=== PATIENT | male | born 1960 | race Caucasian/White ===

== ENCOUNTER → 2018-03-02 | Outpatient (CLI) | payer OTHER ==
--- NOTE | 2018-03-03 15:03 | CT ---
EXAMINATION TYPE: CT angio abd aorta w/Runoff DATE OF EXAM: 03/02/2018 5:18 PM COMPARISON: HISTORY: Embolism & thrombosis of arteries. Hx stent RT [facility] CT DLP: 1380.4 mGycm Automated exposure control for dose reduction was used. TECHNIQUE: Performed with IV Contrast, patient injected with 125 mL of Isovue 370. . FINDINGS: Limited CT sections are obtained the lung bases. Some lingular atelectasis is likely present. Lung ba ses are otherwise clear CT ABDOMEN: In this arterial phase of contrast CT abdomen is essentially unremarkable. Liver spleen p ancreas adrenal glands and gallbladder appear normal. Kidneys cortical phase appear normal. Loops of bowel without contrast are unremarkable CT PELVIS: The appendix is normal. Loops of bowel without contrast pelvis are normal. Urinary bladder prostate is unremarkable. CTA: Dedicated imaging is performed with contrast for the aorta and lower extremity runoff. Three-D r econstructed images performed separately on the ventricular computer by the technologist are presente d. Gastric calcifications within the aorta. The renal arteries appear normal. Celiac axis and superior m esenteric artery takeoffs appear normal. Inferior mesenteric artery appears normal. Vascular calcific ations at the aortic bifurcation. There appears to be a severe stenosis in the proximal right external iliac artery. Internal iliac art amari on the right may be occluded. There is some narrowing of the proximal external iliac artery on th e left. The internal iliac artery on the left appears patent. Vascular calcification is within the st omach. Common femoral arteries are patent. Profunda femoris vessels are patent. Superficial femoral arteries are patent. Some narrowing of the distal superficial femoral arteries at the operative canals may be present. Popliteal arteries appear patent. Trifurcation vessels are patent bilaterally. Trifurcation vessels appear patent to the level of the ankles. IMPRESSION: SEVERE STENOSIS THROUGH THE RIGHT PROXIMAL EXTERNAL ILIAC ARTERY. MILD DEGREE OF STENOSIS WITHIN THE PROXIMAL LEFT EXTERNAL ILIAC ARTERY. LOWER EXTREMITY ARTERIAL SYSTEM OTHERWISE APPEARS PATENT TO THE LEVEL OF THE ANKLES.
== END ==
LOC: RADCTMAIN 16:13
PROVIDERS: ATTEND Surgery
DX: I74.3 Embolism and thrombosis of arteries of the lower extremities (principal)
CPT/HCPCS: 75635; Q9967

== ENCOUNTER → 2018-04-08 | Outpatient (CLI) | payer OTHER ==
[2018-04-08 11:41] LABS: Basophils # (A) 0.1 k/uL (0-0.2); Basophils % (A) 1 %; Eosinophils # (A) 0.1 k/uL (0-0.7); Eosinophils % (A) 2 %; HCT 47.8 % (39.0-53.0); HGB 16.1 gm/dL (13.0-17.5); Lymphocytes # (A) 2.8 k/uL (1.0-4.8); Lymphocytes % (A) 37 %; MCH 31.8 pg (25.0-35.0); MCHC 33.6 g/dL (31.0-37.0); MCV 94.8 fL (80.0-100.0); Mean Platelet Volume 6.6; Monocytes # (A) 0.5 k/uL (0-1.0); Monocytes % (A) 6 %; Neutrophils % (A) 51 %; Platelet Count 189 k/uL (150-450); RBC 5.04 m/uL (4.30-5.90); RDW 12.6 % (11.5-15.5); WBC 7.8 k/uL (3.8-10.6)
[2018-04-08 11:45] LABS: Anion Gap 9 mmol/L; Blood Urea Nitrogen 20 mg/dL (9-20); Carbon Dioxide 27 mmol/L (22-30); Chloride 107 mmol/L (98-107); Potassium 4.3 mmol/L (3.5-5.1); Sodium 143 mmol/L (137-145)
== END | disposition home or self-care (01) ==
LOC: LABPAT 11:11
PROVIDERS: ATTEND Surgery
DX: Z01.812 Encounter for preprocedural laboratory examination (principal); I70.211 Atherosclerosis of native arteries of extremities with intermittent claudication, right leg
CPT/HCPCS: 36415; 80051; 82565; 84520; 85025

== ENCOUNTER 2018-04-11 06:36 | Day surgery (SDC) | payer OTHER ==
[2018-04-07 11:58] VITALS: BMI 31.8
[2018-04-11 07:05] VITALS: TEMP 97.9
[2018-04-11] MEDS ORDERED: ASPIRIN 325 MG TAB PO STA (07:07)
[2018-04-11] MEDS ORDERED: SODIUM CHLORIDE 0.9% 1,000 ML IV ONE (07:30)
--- NOTE | 2018-04-11 07:33 | P.GSHP ---
History of Present Illness H&P Date: 04/11/18 Chief Complaint: right lower extremity pain with walking 57-year-old gentleman with history of right common iliac artery stenting multiple years prior presented to the office secondary to right lower extremity buttock and hip pain with ambulation. Patient stated it was the same pain he felt prior to his previous stent and would like it worked up. Upon workup it was noted that he had diminished ABIs in the right lower extremity as well as a CT angiogram that demonstrated severe external iliac artery stenosis of approximately 90% just distal to the previous stent. He presents today for right lower extremity angiogram and iliac artery stenting. - Review of Systems All systems: negative Past Medical History Past Medical History: Vascular Disorder History of Any Multi-Drug Resistant Organisms: None Reported Additional Past Surgical History / Comment(s): Right common iliac artery stenting Past Anesthesia/Blood Transfusion Reactions: No Reported Reaction Smoking Status: Current some day smoker - Past Family History Mother Family Medical History: No Reported History Medications and Allergies Home Medications Medication Instructions Recorded Confirmed Type Sertraline [Zoloft] 200 mg PO DAILY 04/07/18 04/07/18 History lamoTRIgine [LaMICtal] 200 mg PO DAILY 04/07/18 04/07/18 History Allergies Allergy/AdvReac Type Severity Reaction Status Date / Time No Known Allergies Allergy Verified 04/07/18 11:52 Surgical - Exam Vital Signs Temp Pulse Resp BP Pulse Ox 97.9 F 75 20 128/83 96 04/11/18 07:01 04/11/18 07:01 04/11/18 07:01 04/11/18 07:01 04/11/18 07:01 Results - Imaging CT scan - abdomen: image reviewed (Right common iliac artery stent present with the distal stent stenosis and proximal external iliac artery severe stenosis) Assessment and Plan (1) Claudication in peripheral vascular disease Current Visit: Yes Status: Acute Priority: High Code(s): I73.9 - PERIPHERAL VASCULAR DISEASE, UNSPECIFIED SNOMED Code(s): 65401240 (2) Claudication of right lower extremity Current Visit: Yes Status: Acute Priority: High Code(s): I73.9 - PERIPHERAL VASCULAR DISEASE, UNSPECIFIED SNOMED Code(s): 87011853 (3) Right iliac artery stenosis Current Visit: Yes Status: Acute Code(s): I77.1 - STRICTURE OF ARTERY SNOMED Code(s): 863484413 Plan: Right lower extremity angiogram with external iliac artery stenting.
[2018-04-11] MEDS ORDERED: MIDAZOLAM 2 MG/2 ML VIAL IV ONE (07:45)
[2018-04-11] MEDS ORDERED: LIDOCAINE 1% INJ 10MG/ML (20 ML MDV) SQ ONE (07:47)
[2018-04-11] MEDS ORDERED: HEPARIN SODIUM 1,000 UN/ML (10ML VL) IV ONE (07:55)
[2018-04-11] MEDS ORDERED: PROTAMINE SULFATE 10 MG/ML 5 ML VIAL IV ONE (08:32)
[2018-04-11] MEDS ORDERED: IOPAMIDOL-250 100ML BTL INTRAARTER ONE (08:36)
[2018-04-11] MEDS ORDERED: CLOPIDOGREL 75 MG TAB PO ONE (08:38)
[2018-04-11] MEDS ORDERED: SODIUM CHLORIDE 0.9% 1,000 ML IV SCH (08:45)
[2018-04-11] MEDS ORDERED: CLOPIDOGREL 75 MG TAB PO SCH (09:00)
[2018-04-11] MEDS ORDERED: SERTRALINE 100 MG TAB PO SCH (09:00)
[2018-04-11] MEDS ORDERED: lamoTRIgine 100 MG TAB PO SCH (09:00)
--- NOTE | 2018-04-11 09:02 | P.OP ---
Date of Procedure: 04/11/18 Preoperative Diagnosis: right common iliac artery in stent stenosis- 90% Postoperative Diagnosis: Same Procedure(s) Performed: Right common femoral artery access under ultrasound guidance Aortogram and right lower extremity selective angiogram PTBA of right common iliac artery instent stenosis with Malakoff 8x40 and Inpact 7x60 balloons Anesthesia: local, other (with moderate sedation x45 mins) Surgeon: Sav Humphrey Estimated Blood Loss (ml): 5 Pathology: none sent Condition: stable Disposition: same day Indications for Procedure: 57 year old male with right lower extremity disabiling claudication [place] III found to have 90% instent stenosis of previous right distal common iliac artery stent. Presents for angiogram with possible stenting. Description of Procedure: After written informed consent was obtained the patient all risks benefits and competitions were described the patient is brought to the [facility] and laid in a supine position. The area of the groins were prepped and draped in usual sterile fashion. Timeout was performed in normal fashion. Utilizing local anesthetic the area over the right common femoral artery was infused. Under ultrasound guidance the right common femoral artery was accessed with a multipurpose needle and utilizing Seldinger technique a 6-Chinese sheath was placed. Angiogram of the right lower extremity was obtained demonstrating significant stenosis at the distal aspect of the common iliac artery stent on the right. There was significant candy wrapping appearance noted. 035 Glidewire was then placed across the lesion into the distal aorta. A glide catheter was also placed over the wire and angiograms were obtained in the aorta as well as through the stent. Upon angiogram was noted that the in-stent stenosis was approximately 90% at the distal aspect of the stent as well as in the mid aspect of the stent there was a what appeared to be a shelf. Patient was administered 2000 units of heparin at that time and balloon angioplasty was performed with a 8 x 40 mm Malakoff balloon at nominal. Once completed and grams were again obtained demonstrating improvement of the in-stent stenosis as well as the distal aspect of the stent stenosis. A 7 x 60 mm impact balloon drug- eluting was then chosen and placed at the iliac stent. Once completed there was minimal residual stenosis less than 10%. At that time we obtained intraluminal pressures across the lesion which were equal above and below. Final angiogram with runoff was then performed to the right lower extremity demonstrating good brisk flow through the iliac stents with three-vessel runoff to the ankle. Patient tolerated procedure well all sheaths and wires were removed and pressure was placed for hemostasis. 10 mg of protamine was also given to help with hemostasis. Patient had palpable PT and DP pulses at the conclusion of the procedure and was sent to extended stay unit for recovery. Plan - Discharge Summary Discharge Rx Participant: Yes New Discharge Prescriptions: No Action lamoTRIgine [LaMICtal] 200 mg PO DAILY Sertraline [Zoloft] 200 mg PO DAILY Discharge Medication List Sertraline [Zoloft] 200 mg PO DAILY 04/07/18 [History] lamoTRIgine [LaMICtal] 200 mg PO DAILY 04/07/18 [History] Atorvastatin [Lipitor] 1 tab PO DAILY 04/11/18 [History] Clopidogrel [Plavix] 1 tab PO DAILY 04/11/18 [History] Follow up Appointment(s)/Referral(s): Sav Humphrey DO [STAFF PHYSICIAN] - 2 Weeks Discharge Disposition: HOME SELF-CARE
[2018-04-11 12:23] VITALS: RESP 16
[2018-04-11] MEDS ORDERED: ACETAMINOPHEN TAB 325 MG TAB PO STA (13:27)
[2018-04-11 15:47] VITALS: BP 125/79; PULSE 69
--- NOTE | 2018-04-12 09:37 | IR ---
EXAMINATION TYPE: IR fluoroscopy <1hr DATE OF EXAM: 04/11/2018 COMPARISON: NONE HISTORY: Right hip and leg pain Fluoroscopy support supplied to the referring clinician. See dictated report from vasculature surger y, 7.3 minutes fluoroscopy time, 786 intraoperative C-arm images
== END 2018-04-11 16:07 | disposition home or self-care (01) ==
LOC: CATHCVL 06:36
PROVIDERS: ATTEND Surgery
DX: T82.856A Stenosis of peripheral vascular stent, initial encounter (principal); F17.200 Nicotine dependence, unspecified, uncomplicated; Z79.899 Other long term (current) drug therapy
CPT/HCPCS: 37220; C1769 ×3; C1894; C1725; C2623; J2250; J2720; J2001; J1644; Q9966

== ENCOUNTER 2018-04-12 10:38 | Emergency (ER) | payer OTHER ==
[2018-04-12 10:51] VITALS: BP 150/83; PULSE 80; RESP 18; TEMP 98.6
--- NOTE | 2018-04-12 12:52 | ED ---
General Adult HPI - General Chief complaint: Recheck/Abnormal Lab/Rx Stated complaint: post Angioplasty/bruising & swelling Time Seen by Provider: 04/12/18 10:50 Source: patient, RN notes reviewed Mode of arrival: ambulatory Limitations: no limitations - History of Present Illness Initial comments: Is a 57-year-old male who presents emergency Department complaining of right groin swelling or ecchymosis. Patient states she had a catheterization done yesterday for a repair of a iliac stent. Patient states there is no real pain there but the area looks different than it has in the past and he was concerned so he came in. Patient denies any distal leg pain or tenderness. Patient denies any numbness or weakness. Patient was just concerned about the increased swelling and ecchymosis. - Related Data Home Medications Medication Instructions Recorded Confirmed Sertraline [Zoloft] 200 mg PO DAILY 04/07/18 04/12/18 lamoTRIgine [LaMICtal] 200 mg PO DAILY 04/07/18 04/12/18 Atorvastatin [Lipitor] 40 mg PO DAILY 04/11/18 04/12/18 Clopidogrel [Plavix] 75 mg PO DAILY 04/11/18 04/12/18 Allergies Allergy/AdvReac Type Severity Reaction Status Date / Time No Known Allergies Allergy Verified 04/12/18 11:24 Review of Systems ROS Statement: Those systems with pertinent positive or pertinent negative responses have been documented in the HPI. ROS Other: All systems not noted in ROS Statement are negative. Past Medical History Past Medical History: Vascular Disorder History of Any Multi-Drug Resistant Organisms: None Reported Past Surgical History: Heart Catheterization Additional Past Surgical History / Comment(s): Right common iliac artery stenting Past Anesthesia/Blood Transfusion Reactions: No Reported Reaction Past Psychological History: No Psychological Hx Reported Smoking Status: Current every day smoker Past Alcohol Use History: None Reported Past Drug Use History: None Reported - Past Family History Mother Family Medical History: No Reported History General Exam - General Exam Comments Initial Comments: GENERAL Patient is well-developed and well-nourished. Patient is in no acute distress. EYES Patient's pupils are equal and round. Extraocular motion is intact SKIN Unremarkable NEURO The patient is alert and oriented 3 PYSCH Patient has normal interpersonal interactions. MUSCULOSKELETAL Patient's groin is swollen and there is some ecchymosis in the area however the patient has good femoral pulses and good DP pulses. Limitations: no limitations Course Vital Signs 04/12/18 10:48 Temperature 98.6 F Pulse Rate 80 Respiratory 18 Rate Blood Pressure 150/83 O2 Sat by Pulse 100 Oximetry Medical Decision Making - Medical Decision Making Patient's ultrasound showed no pseudoaneurysm. Disposition Clinical Impression: Postoperative hematoma involving circulatory system following cardiac catheterization Disposition: HOME SELF-CARE Condition: Good Instructions: Hematoma (ED) Is patient prescribed a controlled substance at d/c from ED?: No Referrals: Osman Pulido MD [Primary Care Provider] - 1-2 days Time of Disposition: 14:36
--- NOTE | 2018-04-12 14:30 | US ---
EXAMINATION TYPE: US lower ext pseudo artery RT DATE OF EXAM: 04/12/2018 COMPARISON: NONE CLINICAL HISTORY: Pain. Pt states pain and bruising right groin s/p angioplasty yesterday EXAM PERFORMED: Grayscale and color Doppler duplex imaging performed of the groin, post cardiac ping ter to assess for pseudoaneurysm. SIDE PERFORMED: Right Color and Waveform Doppler performed to assess for the presence of pseudoaneurysm; Is there ultrasound evidence of a pseudoaneurysm: No Is there evidence of AV shunting: No Is there a fluid collection present: No Abnormal flow seen saved on images 6 and 7 of uncertain etiology, technologist said during real-time scanning no suspicious swirling of blood flow identified in abnormal outpouching to suggest pseudoane urysm and the access point in femoral artery was more cranial or proximal in position. IMPRESSION: During real-time scanning no convincing ultrasound evidence for pseudoaneurysm
== END 2018-04-12 14:40 | disposition home or self-care (01) ==
LOC: EC 10:38
DX: I97.630 Postprocedural hematoma of a circulatory system organ or structure following a cardiac catheterization (principal); I99.9 Unspecified disorder of circulatory system; F17.200 Nicotine dependence, unspecified, uncomplicated; Z95.818 Presence of other cardiac implants and grafts; Z95.820 Peripheral vascular angioplasty status with implants and grafts; Z79.02 Long term (current) use of antithrombotics/antiplatelets; Z79.899 Other long term (current) drug therapy
CPT/HCPCS: 93975; 99283

== ENCOUNTER 2022-06-06 18:54 | Inpatient (IN) | payer OTHER ==
[2022-06-06 20:22] LABS: Basophils # (A) 0.1 k/uL (0-0.2); Basophils % (A) 2 %; Eosinophils # (A) 0.1 k/uL (0-0.7); Eosinophils % (A) 1 %; HCT 43.7 % (39.0-53.0); HGB 14.4 gm/dL (13.0-17.5); Lymphocytes # (A) 1.2 k/uL (1.0-4.8); Lymphocytes % (A) 15 %; MCH 32.4 pg (25.0-35.0); MCHC 33.1 g/dL (31.0-37.0); MCV 98.1 fL (80.0-100.0); Mean Platelet Volume 7.7; Monocytes # (A) 0.4 k/uL (0-1.0); Monocytes % (A) 6 %; Neutrophils # (A) 5.6 k/uL (1.3-7.7); Neutrophils % (A) 75 %; RBC 4.45 m/uL (4.30-5.90); RDW 13.8 % (11.5-15.5); WBC 7.6 k/uL (3.8-10.6)
[2022-06-06 20:32] LABS: Partial Thromboplastin Time 23.2 sec (22.0-30.0); Prothrombin Time 10.4 sec (9.0-12.0)
[2022-06-06 20:36] LABS: Potassium 3.7 mmol/L (3.5-5.1)
[2022-06-06 20:37] LABS: ALT 24 U/L (4-49); AST 57 U/L (17-59); African American GFR (CKD) >90 (>60 ml/min/1.73 sqM); Albumin 3.6 g/dL (3.5-5.0); Alkaline Phosphatase 120 U/L (38-126); Anion Gap 9 mmol/L; Blood Urea Nitrogen 6 mg/dL (9-20); Calcium 8.4 mg/dL (8.4-10.2); Carbon Dioxide 26 mmol/L (22-30); Chloride 106 mmol/L (98-107); Glucose 101 mg/dL (74-99); Non-African American GFR(CKD) >90 (>60 ml/min/1.73 sqM); Sodium 141 mmol/L (137-145); Total Bilirubin 0.9 mg/dL (0.2-1.3); Total Protein 6.2 g/dL (6.3-8.2)
[2022-06-06 20:53] LABS: Platelet Count 99 k/uL (150-450)
--- NOTE | 2022-06-06 21:06 | ED ---
Fall HPI - General Chief Complaint: Fall Stated Complaint: Fall,R. Side Pain Time Seen by Provider: 06/06/22 19:46 Source: patient Mode of arrival: wheelchair - History of Present Illness Initial Comments: Patient is a 61-year-old male presenting for evaluation post fall. Patient states that 6 days ago he tripped on his slippers and fell down 6 stairs. He denies any head injury, loss of consciousness, use of blood thinners. Patient reports right-sided rib pain which is worse with deep inspiration and coughing. There is some bruising noted over the right side. No chest pain, nausea, vomiting, palpitations, weakness, headache, vision or hearing changes. - Related Data Home Medications Medication Instructions Recorded Confirmed Sertraline [Zoloft] 200 mg PO DAILY 04/07/18 04/12/18 lamoTRIgine [LaMICtal] 200 mg PO DAILY 04/07/18 04/12/18 Atorvastatin [Lipitor] 40 mg PO DAILY 04/11/18 04/12/18 Clopidogrel [Plavix] 75 mg PO DAILY 04/11/18 04/12/18 Allergies Allergy/AdvReac Type Severity Reaction Status Date / Time No Known Allergies Allergy Verified 06/06/22 19:41 Review of Systems ROS Statement: Those systems with pertinent positive or pertinent negative responses have been documented in the HPI. ROS Other: All systems not noted in ROS Statement are negative. Past Medical History Past Medical History: Vascular Disorder History of Any Multi-Drug Resistant Organisms: None Reported Past Surgical History: Heart Catheterization Additional Past Surgical History / Comment(s): Right common iliac artery stenting Past Anesthesia/Blood Transfusion Reactions: No Reported Reaction Past Psychological History: No Psychological Hx Reported Smoking Status: Current every day smoker Past Alcohol Use History: Occasional Past Drug Use History: None Reported - Past Family History Mother Family Medical History: No Reported History General Exam Limitations: no limitations General appearance: alert, in no apparent distress Head exam: Present: atraumatic, normocephalic, normal inspection Eye exam: Present: normal appearance, PERRL, EOMI Neck exam: Present: normal inspection, full ROM Respiratory exam: Present: wheezes. Absent: respiratory distress, rales, rhonchi, stridor Cardiovascular Exam: Present: regular rate, normal rhythm, normal heart sounds. Absent: systolic murmur, diastolic murmur, rubs, gallop, clicks Right Hip exam: Present: ecchymosis Neurological exam: Present: alert, oriented X3, CN II-XII intact Psychiatric exam: Present: normal affect, normal mood Course Vital Signs 06/06/22 06/06/22 06/06/22 19:37 21:28 21:35 Temperature 98.3 F Pulse Rate 92 94 96 Respiratory 18 16 Rate Blood Pressure 172/97 163/100 O2 Sat by Pulse 94 L 94 L Oximetry 06/06/22 06/06/22 06/07/22 21:47 22:39 00:00 Temperature Pulse Rate 97 107 H 101 H Respiratory 16 18 Rate Blood Pressure 159/92 159/97 O2 Sat by Pulse 93 L 92 L Oximetry 06/07/22 00:37 Temperature Pulse Rate Respiratory 16 Rate Blood Pressure O2 Sat by Pulse Oximetry Medical Decision Making - Medical Decision Making Was pt. sent in by a medical professional or institution (, PA, INTERIOR DESIGN PROJECT MANAGER, urgent care, hospital, or halfway...) When possible be specific @ -No Did you speak to anyone other than the patient for history (EMS, parent, family, police, friend...)? What history was obtained from this source @ -No Did you review nursing and triage notes (agree or disagree)? Why? @ -I reviewed and agree with nursing and triage notes Were old charts reviewed (outside hosp., previous admission, EMS record, old EKG, old radiological studies, urgent care reports/EKG's, halfway records)? Report findings @ -No old charts were reviewed Differential Diagnosis (chest pain, altered mental status, abdominal pain women, abdominal pain men, vaginal bleeding, weakness, fever, dyspnea, syncope, headache, dizziness, GI bleed, back pain, seizure, CVA, palpatations, mental health, musculoskeletal)? @ -MDM Differential Dyspnea: Coronary syndrome, arrhythmia, tamponade, asthma, COPD, pulmonary embolism, pneumonia, pneumothorax, pulmonary effusion, anaphylaxis, diabetic ketoacidosis, flailed chest, pulmonary contusion, diaphragmatic rupture, anemia, neuromuscular this is not meant to be an all-inclusive list. EKG interpreted by me (3pts min.). @ -As above X-rays interpreted by me (1pt min.). @ -None done CT interpreted by me (1pt min.). @ -CT shows small right pneumothorax and trace pleural effusion. Right lower lobe consolidative changes, likely related to combination of atelectasis and mild contusion injury. Minimally displaced right seventh and eighth rib fractures. Emphysematous changes. No acute intracranial process or cervical spine fracture. U/S interpreted by me (1pt. min.). @ -None done What testing was considered but not performed or refused? (CT, X-rays, U/S, labs)? Why? @ -None What meds were considered but not given or refused? Why? @ -None Did you discuss the management of the patient with other professionals (opal magdaleno i.e. , PA, INTERIOR DESIGN PROJECT MANAGER, lab, RT, psych nurse, social security assessor, director economic, teacher, community resource officer, case liner)? Give summary @ -Spoke with trauma surgeon on-call Dr. Olivia Was smoking cessation discussed for >3mins.? @ -No Was critical care preformed (if so, how long)? @ -No Were there social determinants of health that impacted care today? How? (Homelessness, low income, unemployed, alcoholism, drug addiction, transportation, low edu. Level, literacy, decrease access to med. care, [facility], rehab)? @ -No Was there de-escalation of care discussed even if they declined (Discuss DNR or withdrawal of care, Hospice)? DNR status @ -No What co-morbidities impacted this encounter? (DM, HTN, Smoking, COPD, CAD, Can cer, CVA, ARF, Chemo, Hep., AIDS, mental health diagnosis, sleep apnea, morbid obesity)? @ -None Was patient admitted / discharged? Hospital course, mention meds given and route, prescriptions, significant lab abnormalities, going to OR and other pertinent info. @ -Patient is a 61-year-old male presenting with chief complaint of pain across the right side after a slip and fall down 6 stairs 6 days ago. On physical examination there are diffuse wheezes heard on auscultation, Diminished breath sounds noted. CT shows small pneumothorax taking of 10-20% of the lung volume, with some slightly displaced rib fractures of ribs 7 and 8. I spoke with trauma surgeon on-call Dr. Olivia who accepted admission, no chest to be needed at this time as patient is stable on room air. Patient is placed on 4L oxygen. Provided with pain medication. Medical consult patient's PCP is placed. Follow- up with PCP. Report back to ER with any new or worsening symptoms. Discussed return parameters and answered all questions. Patient conveyed verbal understanding and agreed to the plan. I discussed this case in detail with my attending Dr. Nolan Undiagnosed new problem with uncertain prognosis? @ -No Drug Therapy requiring intensive monitoring for toxicity (Heparin, Nitro, Insulin, Cardizem)? @ -No Were any procedures done? @ -No Diagnosis/symptom? @ -Pneumothorax Acute, or Chronic, or Acute on Chronic? @ -Acute Uncomplicated (without systemic symptoms) or Complicated (systemic symptoms)? @ -Complicated Side effects of treatment? @ -No Exacerbation, Progression, or Severe Exacerbation? @ -No Poses a threat to life or bodily function? How? (Chest pain, [place], [place], pneumonia, PE, COPD, DKA, ARF, appy, cholecystitis, CVA, Diverticulitis, Homicidal, Suicidal, threat to staff... and all critical care pts) @ -Yes - Lab Data Result diagrams: 06/06/22 20:11 06/06/22 20:11 Lab Results 06/06/22 06/06/22 06/06/22 Range/Units 20:11 20:11 20:11 WBC 7.6 (3.8-10.6) k/uL RBC 4.45 (4.30-5.90) m/uL Hgb 14.4 (13.0-17.5) gm/dL Hct 43.7 (39.0-53.0) % MCV 98.1 (80.0-100.0) fL MCH 32.4 (25.0-35.0) pg MCHC 33.1 (31.0-37.0) g/dL RDW 13.8 (11.5-15.5) % Plt Count 99 L (150-450) k/uL MPV 7.7 Neutrophils % 75 % Lymphocytes % 15 % Monocytes % 6 % Eosinophils % 1 % Basophils % 2 % Neutrophils # 5.6 (1.3-7.7) k/uL Lymphocytes # 1.2 (1.0-4.8) k/uL Monocytes # 0.4 (0-1.0) k/uL Eosinophils # 0.1 (0-0.7) k/uL Basophils # 0.1 (0-0.2) k/uL PT 10.4 (9.0-12.0) sec INR 1.0 (<1.2) APTT 23.2 (22.0-30.0) sec Sodium 141 (137-145) mmol/L Potassium 3.7 (3.5-5.1) mmol/L Chloride 106 (98-107) mmol/L Carbon Dioxide 26 (22-30) mmol/L Anion Gap 9 mmol/L BUN 6 L (9-20) mg/dL Creatinine 0.64 L (0.66-1.25) mg/dL Est GFR (CKD-EPI)AfAm >90 (>60 ml/min/1.73 sqM) Est GFR (CKD-EPI)NonAf >90 (>60 ml/min/1.73 sqM) Glucose 101 H (74-99) mg/dL Calcium 8.4 (8.4-10.2) mg/dL Total Bilirubin 0.9 (0.2-1.3) mg/dL AST 57 (17-59) U/L ALT 24 (4-49) U/L Alkaline Phosphatase 120 (38-126) U/L Total Protein 6.2 L (6.3-8.2) g/dL Albumin 3.6 (3.5-5.0) g/dL Disposition Clinical Impression: Acute pneumothorax Disposition: ADMITTED IP TO THIS [facility] Condition: Serious
[2022-06-06] MEDS ORDERED: IPRATROPIUM-ALBUTEROL 3 ML NEB INHALATION STA (21:30)
[2022-06-06] MEDS ORDERED: methylPREDNISolone SOD SUCCI 125 MG/2 ML VIAL IV STA (21:30)
--- NOTE | 2022-06-06 22:15 | CT ---
EXAMINATION TYPE: CT brain cspine wo con CT DLP: 1532 mGycm, Automated exposure control for dose reduction was used. DATE OF EXAM: 06/06/2022 9:18 PM COMPARISON: CT chest abdomen pelvis 06/06/2022. CLINICAL INDICATION:Male, 61 years old with history of fall; fell down stairs, right sided chest pain TECHNIQUE: Brain: Multiple axial CT images of the brain were obtained without IV contrast. Cspine: Axial CT images from the skull base to the inferior aspect of T2 we obtained without intraven ous contrast. Coronal and sagittal reformatted images were also reviewed. FINDINGS: Brain: Extra-axial spaces: No abnormal extra-axial fluid collections. Ventricular system: Within normal limits Cerebral parenchyma: Cerebral atrophy. No acute intraparenchymal hemorrhage or mass effect. The cardozo -white junction is well differentiated. Scattered hypoattenuating areas are seen within the white mat ter. Cerebellum: Unremarkable. Mass effect: No evidence of midline shift. Intracranial vasculature: Atherosclerotic calcifications of the intracranial vessels. Soft tissues: Normal. Calvarium/osseous structures: No depressed skull fracture. Paranasal sinuses and mastoid air cells: Clear.Mastoid air cells are Clear Visualized orbits: Orbital contents are intact. Cervical spine: Fracture: None. Osseous structures: Unremarkable Vertebral alignment: Within normal limits. Spinal canal/Neural Foramina: No evidence of significant spinal canal narrowing. No evidence for sign ificant neural foraminal stenosis. Neck soft tissues: Prevertebral soft tissues are within normal limits. Other: The airway is patent. Partially visualized right pneumothorax. Findings communicated to Dr. Mark Vivar, PAC on 06/06/2022 10:[address] Harry. IMPRESSION: 1. No acute intracranial process or evidence for cervical spine fracture. 2. Partially visualized right pneumothorax, better characterized on chest CT.
--- NOTE | 2022-06-06 22:25 | CT ---
EXAMINATION TYPE: CT ChestAbdPelvis w con CT DLP: 1386.7 mGycm, Automated exposure control for dose reduction was used. DATE OF EXAM: 06/06/2022 9:20 PM COMPARISON: CT head cervical spine 06/06/2022 CLINICAL INDICATION:Male, 61 years old with history of fall; PHH, fell down stairs, right sided chest pain Technique: Multiple axial images of the chest, abdomen, and pelvis were obtained. Two-dimensional cor onal and sagittal reconstructions were obtained. Contrast used:100 mL of Isovue 300 with IV Contrast, Oral contrast used: without Oral Contrast Findings: CHEST: LUNGS/ PLEURA: Small right anterior pneumothorax (approximately 10-20% volume). Trace right pleural e ffusion with associated atelectasis. Multifocal linear subsegmental atelectasis of the posterior righ t lower lobe. Left lung is clear. Bilateral emphysematous changes of the lung apices. AIRWAY: Patent and unremarkable. HEART: Size within normal limits. MEDIASTINUM: No gross evidence of adenopathy. VASCULATURE: No aortic aneurysm. MUSCULOSKELETAL: Minimally displaced posterior right seventh and eighth ribs posteriorly (series 401, image 35). Minimal degenerative changes of the thoracic spine. SOFT TISSUES/LYMPH NODES: Unremarkable. LOWER NECK: No significant findings. ABDOMEN: ABDOMEN LIVER: Diffusely hypoattenuating parenchyma. GALLBLADDER AND BILE DUCTS: Unremarkable. PANCREAS: Unremarkable. SPLEEN: Unremarkable. ADRENAL GLANDS: Unremarkable. KIDNEYS AND URETERS: No evidence of hydronephrosis or renal calculus. The ureters are unremarkable. PELVIS BLADDER: Unremarkable REPRODUCTIVE: Unremarkable. ABDOMEN & PELVIS STOMACH AND BOWEL: Small hiatal hernia, duodenum is unremarkable. Scattered diverticula are noted thr oughout the colon. No evidence of bowel obstruction. PERITONEUM: No evidence of pneumoperitoneum or free fluid. VASCULATURE: Severe atherosclerotic calcifications are present throughout the abdominal aorta and its branches. MUSCULOSKELETAL: Degenerative changes of the thoracolumbar spine, most pronounced at L5-S1. LYMPH NODES: No gross evidence for lymphadenopathy. SOFT TISSUE/ABDOMINAL WALL: Fat containing left inguinal hernia. Minimal fat stranding along the righ t flank and hip soft tissues. No sizable fluid collection. Findings communicated to Dr. Mark Vivar, PAC on 06/06/2022 10:[address] Abbie Draper. IMPRESSION: 1. Small right pneumothorax and trace right pleural effusion. 2. Right lower lobe consolidative changes, likely related to combination of atelectasis from #1 and m ild contusion injury. Short-term follow-up is recommended to ensure resolution. 3. Minimally displaced right seventh and eighth rib fractures. 4. Emphysematous changes. 5. Additional incidental findings as detailed above.
[2022-06-06] MEDS ORDERED: MORPHINE SULFATE 4 MG/ML SYRINGE IVP STA (22:29)
[2022-06-06] MEDS ORDERED: IBUPROFEN 400 MG TAB PO PRN (22:43)
[2022-06-06] MEDS ORDERED: NALOXONE 0.4 MG/ML 1 ML VIAL IV PRN (22:43)
[2022-06-06] MEDS ORDERED: ACETAMINOPHEN TAB 325 MG TAB PO PRN (22:43)
[2022-06-07] MEDS: HYDROmorphone 1 MG/ML 1 ML SYRINGE IVP PRN ×6 (00:17→22:47)
[2022-06-07] MEDS ORDERED: SODIUM CHLORIDE 0.9% 1,000 ML IV ONE (01:41)
[2022-06-07] MEDS: SODIUM CHLORIDE 0.9% 1,000 ML IV SCH ×2 (03:00→15:20)
[2022-06-07 05:03] LABS: Appearance,Urine Clear (Clear); Bilirubin,Urine Negative (Negative); Blood,Urine Negative (Negative); Color,Urine Yellow; Glucose,Urine (UA) Negative (Negative); Ketones,Urine 1+ (Negative); Leukocyte Esterase,Urine Negative (Negative); Nitrite,Urine Negative (Negative); PH, Urine 5.5 (5.0-8.0); Protein,Urine Trace (Negative); Urobilinogen,Urine <2.0 mg/dL (<2.0)
[2022-06-07 05:05] LABS: Specific Gravity,Urine >1.050 (1.001-1.035)
[2022-06-07] MEDS: KETOROLAC 15 MG/ML 1 ML VIAL IVP PRN ×2 (06:41→15:23)
--- NOTE | 2022-06-07 08:53 | XR ---
EXAMINATION TYPE: XR chest 2V DATE OF EXAM: 06/07/2022 8:38 AM COMPARISON: CT brain C-spine 06/06/2022, CT chest and pelvis 06/06/2022. TECHNIQUE: XR chest 2V Frontal and lateral views of the chest. CLINICAL INDICATION:Male, 61 years old with history of pneumothorax; FINDINGS: Lungs/Pleura: Blunting of the left costophrenic angle with adjacent airspace opacities. Small right a pical pneumothorax redemonstrated. Left lung is clear. Pulmonary vascularity: Unremarkable. Heart/mediastinum: Cardiomediastinal silhouette is unremarkable. Musculoskeletal: The known minimally displaced right seventh and eighth rib fractures are better appr eciated on prior CT chest. IMPRESSION: 1. Redemonstration of small right pneumothorax and trace right pleural effusion with adjacent airspac e opacity likely representing combination of atelectasis and contusion. 2. Known minimally displaced right seventh and eighth rib fractures are better appreciated on prior C T chest.
[2022-06-07] MEDS ORDERED: IPRATROPIUM-ALBUTEROL 3 ML NEB INHALATION PRN (09:44)
[2022-06-07] MEDS ORDERED: TIOTROPIUM 2.5 MCG INHALER INHALATION PRN (10:00)
[2022-06-07] MEDS ORDERED: ALBUTEROL HFA INHALER INHALATION PRN (10:00)
[2022-06-07] MEDS: ACETAMINOPHEN TAB 500 MG TAB PO SCH ×3 (13:36→22:46)
--- NOTE | 2022-06-07 20:32 | P.GSHP ---
History of Present Illness H&P Date: 06/07/22 Chief Complaint: rib fractures after fall 61M who 6 days ago tripped & fell, landing on right side. Was evaluated by the ER, recommended admission. After their evaluation, they didn't feel the patient warranted a chest tube. Small 10-20% PTX on CT. Was on RA & saturating well; placed empirically on 4L NC by ER to help with resolution of PTX. Denies LOC. Underwent CT head, c-spine, chest, abdomen & pelvis which revealed R rib fx 7-8, small R PTX, ?pulmonary contusion, fat stranding along right hip & flank (likely contusion from fall). Feels fine. No SOB, TAYLOR. No history of asthma but endorses tobacco use. Chest wall pain. Initially with neck pain but since resolved. - Constitutional Constitutional: Reports as per HPI, Denies chronic pain - EENT Ears, nose, mouth and throat: Reports as per HPI - Cardiovascular Cardiovascular: Denies high blood pressure, Denies irregular heart beat - Respiratory Respiratory: Denies home oxygen - Gastrointestinal Gastrointestinal: Denies abdominal pain - Musculoskeletal Musculoskeletal: Denies neck pain - Neurological Neurological: Reports as per HPI, Denies change in mentation - Endocrine Endocrine: Denies high blood sugars Past Medical History Past Medical History: Vascular Disorder History of Any Multi-Drug Resistant Organisms: None Reported Past Surgical History: Heart Catheterization Additional Past Surgical History / Comment(s): Right common iliac artery stenting Past Anesthesia/Blood Transfusion Reactions: No Reported Reaction Past Psychological History: No Psychological Hx Reported Smoking Status: Current every day smoker Past Alcohol Use History: Occasional (endorses every other day EtOH use, denies withdrawal symptoms) Past Drug Use History: None Reported - Past Family History Mother Family Medical History: Coronary Artery Disease (CAD), Diabetes Mellitus Medications and Allergies Home Medications Medication Instructions Recorded Confirmed Type No Known Home Medications 06/07/22 06/07/22 History Allergies Allergy/AdvReac Type Severity Reaction Status Date / Time No Known Allergies Allergy Verified 06/07/22 06:17 Surgical - Exam Vital Signs Temp Pulse Resp BP Pulse Ox 98.3 F 92 18 172/97 94 L 06/06/22 19:37 06/06/22 19:37 06/06/22 19:37 06/06/22 19:37 06/06/22 19:37 - General well developed, well nourished, no distress - Eyes normal ocular movement, no icteric - ENT normal mucosa, no hearing loss - Neck no midline TTP, normal PROM - Respiratory diminished breath sounds on superior right lung, bilateral wheezing normal respiratory effort, clear to auscultation - Cardiovascular Rhythm: regular - Abdomen Abdomen: soft, non tender, no guarding, no rigid, no rebound, no distended - Integumentary dry, no diaphoresis - Neurologic no gross deficits, able to recall trauma no confused - Psychiatric cooperative, normal affect oriented to time, oriented to person, oriented to place, speech is normal, memory intact Results - Labs 06/06/22 20:11 06/06/22 20:11 Abnormal Lab Results - Last 24 Hours (Table) 06/06/22 06/06/22 06/07/22 Range/Units 20:11 20:11 00:29 Plt Count 99 L (150-450) k/uL BUN 6 L (9-20) mg/dL Creatinine 0.64 L (0.66-1.25) mg/dL Glucose 101 H (74-99) mg/dL Total Protein 6.2 L (6.3-8.2) g/dL Ur Specific [place] >1.050 H (1.001-1.035) Urine Protein Trace H (Negative) Urine Ketones 1+ H (Negative) Diabetes panel 06/06/22 Range/Units 20:11 Sodium 141 (137-145) mmol/L Potassium 3.7 (3.5-5.1) mmol/L Chloride 106 (98-107) mmol/L Carbon Dioxide 26 (22-30) mmol/L BUN 6 L (9-20) mg/dL Creatinine 0.64 L (0.66-1.25) mg/dL Glucose 101 H (74-99) mg/dL Calcium 8.4 (8.4-10.2) mg/dL AST 57 (17-59) U/L ALT 24 (4-49) U/L Alkaline Phosphatase 120 (38-126) U/L Total Protein 6.2 L (6.3-8.2) g/dL Albumin 3.6 (3.5-5.0) g/dL Calcium panel 06/06/22 Range/Units 20:11 Calcium 8.4 (8.4-10.2) mg/dL Albumin 3.6 (3.5-5.0) g/dL Pituitary panel 06/06/22 Range/Units 20:11 Sodium 141 (137-145) mmol/L Potassium 3.7 (3.5-5.1) mmol/L Chloride 106 (98-107) mmol/L Carbon Dioxide 26 (22-30) mmol/L BUN 6 L (9-20) mg/dL Creatinine 0.64 L (0.66-1.25) mg/dL Glucose 101 H (74-99) mg/dL Calcium 8.4 (8.4-10.2) mg/dL Adrenal panel 06/06/22 Range/Units 20:11 Sodium 141 (137-145) mmol/L Potassium 3.7 (3.5-5.1) mmol/L Chloride 106 (98-107) mmol/L Carbon Dioxide 26 (22-30) mmol/L BUN 6 L (9-20) mg/dL Creatinine 0.64 L (0.66-1.25) mg/dL Glucose 101 H (74-99) mg/dL Calcium 8.4 (8.4-10.2) mg/dL Total Bilirubin 0.9 (0.2-1.3) mg/dL AST 57 (17-59) U/L ALT 24 (4-49) U/L Alkaline Phosphatase 120 (38-126) U/L Total Protein 6.2 L (6.3-8.2) g/dL Albumin 3.6 (3.5-5.0) g/dL - Imaging Chest x-ray: report reviewed, image reviewed CT scan - abdomen: report reviewed, image reviewed CT scan - chest: report reviewed, image reviewed CT scan - pelvis: report reviewed, image reviewed Additional studies: CT head & c-spine reviewed Assessment and Plan Assessment: mechanical fall R rib fx 7-8, minimally displaced small R PTX Plan: optimize multimodal pain regimen - will consult Anesthesia if not able to control with PO analgesia trend CXR - if develops any signs of respiratory distress, will consult pulmonary to place chest tube monitor for signs of EtOH withdrawal Time with Patient: Less than 30
[2022-06-08] MEDS: HYDROmorphone 1 MG/ML 1 ML SYRINGE IVP PRN ×4 (01:42→19:52)
[2022-06-08] MEDS: KETOROLAC 15 MG/ML 1 ML VIAL IVP PRN (03:35)
[2022-06-08] MEDS: ACETAMINOPHEN TAB 500 MG TAB PO SCH ×3 (05:59→17:14)
[2022-06-08] MEDS: SODIUM CHLORIDE 0.9% 1,000 ML IV SCH ×2 (06:02→17:22)
--- NOTE | 2022-06-08 07:43 | XR ---
EXAMINATION TYPE: XR chest 1V DATE OF EXAM: 06/08/2022 7:06 AM COMPARISON: Chest radiographs from 06/07/2022, CT chest abdomen pelvis 06/06/2022 TECHNIQUE: XR chest 1V Frontal view of the chest. CLINICAL INDICATION:Male, 61 years old with history of R PTX; FINDINGS: Lungs/Pleura: Small right apical pneumothorax. No pleural effusions. Bibasilar atelectasis. Pulmonary vascularity: Unremarkable. Heart/mediastinum: Cardiomediastinal silhouette is unremarkable. Musculoskeletal: The known minimally displaced right seventh and eighth rib fractures are better appr eciated on prior CT chest. IMPRESSION: Stable small right apical pneumothorax.
[2022-06-08] MEDS: methocarbamoL 500 MG TAB PO PRN (17:15)
[2022-06-08] MEDS ORDERED: THIAMINE 100 MG/ML 2 ML VIAL IM STA (17:52)
[2022-06-08] MEDS ORDERED: LORazepam 2 MG/ML INJ IV PRN ×2 (17:52)
[2022-06-08 18:01] LABS: Basophils % (A) 1 %; Eosinophils % (A) 1 %; HCT 39.5 % (39.0-53.0); HGB 13.4 gm/dL (13.0-17.5); Lymphocytes # (A) 0.7 k/uL (1.0-4.8); Lymphocytes % (A) 14 %; MCH 33.3 pg (25.0-35.0); MCHC 33.8 g/dL (31.0-37.0); MCV 98.5 fL (80.0-100.0); Mean Platelet Volume 8.2; Monocytes # (A) 0.3 k/uL (0-1.0); Monocytes % (A) 6 %; Neutrophils % (A) 78 %; RBC 4.01 m/uL (4.30-5.90); RDW 13.6 % (11.5-15.5); WBC 5.1 k/uL (3.8-10.6)
[2022-06-08 18:05] LABS: Platelet Count 61 k/uL (150-450)
[2022-06-08 18:12] LABS: ALT 18 U/L (4-49); AST 33 U/L (17-59); African American GFR (CKD) >90 (>60 ml/min/1.73 sqM); Albumin 2.9 g/dL (3.5-5.0); Alkaline Phosphatase 107 U/L (38-126); Anion Gap 4 mmol/L; Blood Urea Nitrogen 8 mg/dL (9-20); Calcium 7.5 mg/dL (8.4-10.2); Carbon Dioxide 27 mmol/L (22-30); Chloride 99 mmol/L (98-107); Glucose 93 mg/dL (74-99); Non-African American GFR(CKD) >90 (>60 ml/min/1.73 sqM); Potassium 4.1 mmol/L (3.5-5.1); Sodium 130 mmol/L (137-145); Total Bilirubin 1.2 mg/dL (0.2-1.3); Total Protein 5.3 g/dL (6.3-8.2)
--- NOTE | 2022-06-08 18:28 | CT ---
EXAMINATION TYPE: CT chest angio for PE DATE OF EXAM: 06/08/2022 COMPARISON: None HISTORY: SOB CT DLP: 473.3 mGycm Automated exposure control for dose reduction was used. CONTRAST: Performed with IV Contrast, patient injected with 100 mL of Isovue 370. There are Three-D postprocessed images. There are bilateral mild pleural effusions. There is airspace infiltrate and atelectasis in the poste rior lung delg[place] bilaterally. There is small right-sided pneumothorax 5%. There is some groundglass i nterstitial density in the anterior left upper lobe. The ascending aorta measures 3.5 cm. No dissection. There is no evidence of filling defect in the pul monary arteries. There is no mediastinal adenopathy. There are no hilar masses. IMPRESSION: No evidence of pulmonary embolism. Bilateral pulmonary airspace consolidation and atelectasis in the posterior lung delgadillo which is significantly increased compared to recent exam. There is right-sided pneumothorax without much change.
[2022-06-08] MEDS: ENOXAPARIN 30 MG/0.3 ML SYRINGE SQ SCH (18:38)
[2022-06-08] MEDS ORDERED: FUROSEMIDE 10 MG/ML 2 ML VIAL IV ONE (19:30)
--- NOTE | 2022-06-08 20:18 | P.PN ---
Subjective Progress Note Date: 06/08/22 Principal diagnosis: fall 6 days ago with rib fractures, small R PTX 61M who 6 days ago tripped & fell, landing on right side. Was evaluated by the ER, recommended admission. After their evaluation, they didn't feel the patient warranted a chest tube. Small 10-20% PTX on CT. Was on RA & saturating well; placed empirically on 4L NC by ER to help with resolution of PTX. Denies LOC. Underwent CT head, c-spine, chest, abdomen & pelvis which revealed R rib fx 7-8, small R PTX, ?pulmonary contusion, fat stranding along right hip & flank (likely contusion from fall). Feeling better today. No wheezing. No SOB, TAYLOR. Wants to get out of bed. Objective - Vital Signs Vital signs: Vital Signs Temp 98.0 F 06/08/22 08:00 Pulse 92 06/08/22 14:00 Resp 18 06/08/22 14:00 BP 172/87 06/08/22 12:00 Pulse Ox 84 L 06/08/22 12:00 FiO2 Intake & Output 06/07/22 06/08/22 06/08/22 18:59 06:59 18:59 Intake Total 598 120 Output Total 860 1125 Balance -262 -1125 120 Weight 81.647 kg Intake: Oral 598 120 Output: Urine 860 1125 Other: Voiding Method Toilet Toilet Urinal Urinal # Voids 1 0 - Constitutional General appearance: Present: cooperative, no acute distress - EENT Eyes: Present: anicteric sclerae ENT: Present: hearing grossly normal - Neck Details: supple - Respiratory Respiratory: bilateral: CTA (increased airflow compared to yesterday), negative: wheezing - Cardiovascular Rhythm: regular - Gastrointestinal General gastrointestinal: Present: soft. Absent: distended, tenderness - Integumentary Integumentary Comment(s): dry, no diaphoresis - Neurologic Neurologic Comment(s): no gross deficits - Psychiatric Psychiatric Comment(s): cooperative Psychiatric: Present: appropriate affect - Labs CBC & Chem 7: 06/08/22 17:43 06/08/22 17:43 - Imaging and Cardiology Chest x-ray: report reviewed, image reviewed Assessment and Plan Assessment: mechanical fall R rib fx 7-8, minimally displaced small R PTX Plan: encourage ambulation, IS use AM CXR Time with Patient: Less than 30
[2022-06-08 20:32] LABS: ABG Base Excess 2.6 mmol/L; ABG HCO3 26 mmol/L (21-25); ABG Oxygen Saturation 91.4 % (94-97); ABG PCO2 37 mmHg (35-45); ABG PH 7.47 (7.35-7.45); ABG TCO2 27 mmol/L (19-24); Allen Test Performed? Yes
--- NOTE | 2022-06-08 20:35 | XR ---
EXAMINATION TYPE: XR chest 1V portable DATE OF EXAM: 06/08/2022 COMPARISON: Today HISTORY: Follow-up pneumothorax TECHNIQUE: Single view FINDINGS: There is a small right-sided pneumothorax approximately 10% without change. There is some p atchy infiltrate in both lower lobes. No heart failure. Heart size is normal. There are chest leads. IMPRESSION: There is increasing bilateral lower lobe airspace infiltrate and atelectasis compared to exam this morning. There is stable right-sided pneumothorax.
[2022-06-08 20:45] LABS: ABG PO2 57 mmHg (83-108)
[2022-06-09] MEDS: ACETAMINOPHEN TAB 500 MG TAB PO SCH ×4 (00:32→17:37)
[2022-06-09] MEDS: methocarbamoL 500 MG TAB PO PRN (01:34)
[2022-06-09 04:05] LABS: Glucose,Whole Blood 98 mg/dL (70-110)
[2022-06-09] MEDS: SODIUM CHLORIDE 0.9% 1,000 ML IV SCH ×2 (04:35→16:36)
[2022-06-09 05:13] LABS: ABG Base Excess 4.5 mmol/L; ABG HCO3 28 mmol/L (21-25); ABG Oxygen Saturation 93.5 % (94-97); ABG PCO2 35 mmHg (35-45); ABG PH 7.51 (7.35-7.45); ABG PO2 63 mmHg (83-108); ABG TCO2 29 mmol/L (19-24); Allen Test Performed? Yes
[2022-06-09 05:36] LABS: HCT 35.1 % (39.0-53.0); HGB 12.1 gm/dL (13.0-17.5); MCH 33.4 pg (25.0-35.0); MCHC 34.6 g/dL (31.0-37.0); MCV 96.5 fL (80.0-100.0); Mean Platelet Volume 8.3; RBC 3.64 m/uL (4.30-5.90); RDW 13.6 % (11.5-15.5); WBC 3.2 k/uL (3.8-10.6)
[2022-06-09 05:46] LABS: African American GFR (CKD) >90 (>60 ml/min/1.73 sqM); Anion Gap 4 mmol/L; Blood Urea Nitrogen 6 mg/dL (9-20); Calcium 7.6 mg/dL (8.4-10.2); Carbon Dioxide 27 mmol/L (22-30); Chloride 98 mmol/L (98-107); Glucose 92 mg/dL (74-99); Magnesium 1.2 mg/dL (1.6-2.3); Non-African American GFR(CKD) >90 (>60 ml/min/1.73 sqM); Phosphorus 2.9 mg/dL (2.5-4.5); Potassium 3.1 mmol/L (3.5-5.1); Sodium 129 mmol/L (137-145)
[2022-06-09 05:47] LABS: Platelet Count 56 k/uL (150-450)
--- NOTE | 2022-06-09 06:04 | XR ---
EXAMINATION TYPE: XR chest 1V portable DATE OF EXAM: 06/09/2022 COMPARISON: Yesterday HISTORY: Short of breath TECHNIQUE: Single view FINDINGS: Trachea is midline. There is bilateral lower lobe pulmonary airspace consolidation and atel ectasis. Trachea is midline. No pneumothorax. There is fracture right posterior eighth rib. There are chest leads. Shoulder joints are intact IMPRESSION: Bilateral lower lobe airspace consolidation and atelectasis which is slightly worse than yesterday.
[2022-06-09] MEDS: POTASSIUM BICARBONATE/CIT AC 20 MEQ TABLET.EFF NG-TUBE SCH ×2 (06:06→07:05)
[2022-06-09] MEDS: MAGNESIUM SULFATE-D5W PMX 1 GM in DEXTROSE/WATER 1 100ML.BAG IVPB SCH ×4 (06:06→12:10)
[2022-06-09] MEDS: HYDROmorphone 1 MG/ML 1 ML SYRINGE IVP PRN ×3 (07:51→21:26)
[2022-06-09] MEDS: THIAMINE 100 MG TAB PO SCH (07:52)
[2022-06-09] MEDS: ENOXAPARIN 30 MG/0.3 ML SYRINGE SQ SCH ×2 (07:52→20:14)
[2022-06-09] MEDS ORDERED: IPRATROPIUM-ALBUTEROL 3 ML NEB INHALATION PRN (08:06)
[2022-06-09] MEDS: LIDOCAINE 5% PATCH TOPICAL SCH (09:04)
[2022-06-09] MEDS: PIPERACILLIN-TAZOBACTAM 3.375 GM in SODIUM CHLORIDE 0.9% 100 ML IVPB SCH ×2 (09:04→16:41)
[2022-06-09] MEDS: methylPREDNISolone SOD SUCCI 125 MG/2 ML VIAL IV SCH ×3 (09:05→17:37)
--- NOTE | 2022-06-09 09:36 | P.PN ---
Subjective Progress Note Date: 06/09/22 Principal diagnosis: fall 6 days ago with rib fractures, small R PTX 61M who 6 days ago tripped & fell, landing on right side. Was evaluated by the ER, recommended admission. After their evaluation, they didn't feel the patient warranted a chest tube. Small 10-20% PTX on CT. Was on RA & saturating well; placed empirically on 4L NC by ER to help with resolution of PTX. Denies LOC. Underwent CT head, c-spine, chest, abdomen & pelvis which revealed R rib fx 7-8, small R PTX, ?pulmonary contusion, fat stranding along right hip & flank (likely contusion from fall). Overnight transferred to SICU for acute respiratory issues. Now on HFNC. Feeling better today. No SOB, TAYLOR. Wants to get out of bed. CXR reviewed & near resolution of PTX. Responded to Lasix yesterday. He reported to RN that his father from CHF in his mid-50's. Patient denied any self history of cardiac issues; but does have an iliac stent. Objective - Vital Signs Vital signs: Vital Signs Temp 98.2 F 06/09/22 08:00 Pulse 90 06/09/22 08:00 Resp 31 H 06/09/22 08:00 BP 125/70 06/09/22 08:00 Pulse Ox 94 L 06/09/22 08:19 FiO2 92 06/09/22 08:19 Intake & Output 06/08/22 06/09/22 06/09/22 18:59 06:59 18:59 Intake Total 360 100 100 Output Total 200 2900 300 Balance 160 -2800 -200 Intake: IV 100 Magnesium Sulfate-D5w Pmx 100 1 gm In Dextrose/Water 1 100ml.bag @ 100 mls/hr IVPB Q1H KELLI Rx#: [id number] Intake, IV Titration 100 Amount Magnesium Sulfate-D5w Pmx 100 1 gm In Dextrose/Water 1 100ml.bag @ 100 mls/hr IVPB Q1H KELLI Rx#: [id number] Oral 360 Output: Urine 200 2900 300 Other: Voiding Method Toilet Urinal Urinal Urinal # Voids 0 1 - Constitutional General appearance: Present: cooperative, no acute distress - EENT Eyes: Present: anicteric sclerae ENT: Present: hearing grossly normal - Neck Details: supple - Respiratory Details: coarse breath sounds bilaterally, L>R; improved airflow to R side - Cardiovascular Rhythm: regular - Gastrointestinal General gastrointestinal: Present: soft. Absent: distended, rigid, tenderness - Integumentary Integumentary Comment(s): dry, no diaphoresis - Neurologic Neurologic Comment(s): no gross deficits - Musculoskeletal Musculoskeletal Comment(s): no LE edema - Psychiatric Psychiatric Comment(s): cooperative, normal affect; motivated - Labs CBC & Chem 7: 06/09/22 04:53 06/09/22 04:53 Labs: Abnormal Lab Results - Last 24 Hours (Table) 06/08/22 06/08/22 06/08/22 Range/Units 17:43 17:43 20:27 WBC (3.8-10.6) k/uL RBC 4.01 L (4.30-5.90) m/uL Hgb (13.0-17.5) gm/dL Hct (39.0-53.0) % Plt Count 61 L (150-450) k/uL Lymphocytes # 0.7 L (1.0-4.8) k/uL ABG pH 7.47 H (7.35-7.45) ABG pO2 57 L* (83-108) mmHg ABG HCO3 26 H (21-25) mmol/L ABG Total CO2 27 H (19-24) mmol/L ABG O2 Saturation 91.4 L (94-97) % Sodium 130 L (137-145) mmol/L Potassium (3.5-5.1) mmol/L BUN 8 L (9-20) mg/dL Creatinine 0.56 L (0.66-1.25) mg/dL Calcium 7.5 L (8.4-10.2) mg/dL Magnesium (1.6-2.3) mg/dL Total Protein 5.3 L (6.3-8.2) g/dL Albumin 2.9 L (3.5-5.0) g/dL 06/09/22 06/09/22 06/09/22 Range/Units 04:53 04:53 05:11 WBC 3.2 L (3.8-10.6) k/uL RBC 3.64 L (4.30-5.90) m/uL Hgb 12.1 L (13.0-17.5) gm/dL Hct 35.1 L (39.0-53.0) % Plt Count 56 L (150-450) k/uL Lymphocytes # (1.0-4.8) k/uL ABG pH 7.51 H (7.35-7.45) ABG pO2 63 L (83-108) mmHg ABG HCO3 28 H (21-25) mmol/L ABG Total CO2 29 H (19-24) mmol/L ABG O2 Saturation 93.5 L (94-97) % Sodium 129 L (137-145) mmol/L Potassium 3.1 L (3.5-5.1) mmol/L BUN 6 L (9-20) mg/dL Creatinine 0.60 L (0.66-1.25) mg/dL Calcium 7.6 L (8.4-10.2) mg/dL Magnesium 1.2 L (1.6-2.3) mg/dL Total Protein (6.3-8.2) g/dL Albumin (3.5-5.0) g/dL - Imaging and Cardiology Chest x-ray: report reviewed, image reviewed (interval near resolution of PTX), other Assessment and Plan Assessment: mechanical fall R rib fx 7-8, minimally displaced small R PTX, nearly resolved on AM CXR Plan: encourage ambulation, IS use daily AM CXR lidocaine patch to help with pain control optimize multimodal pain control - if unable to control with IV/PO, may need anesthesia consult for block or epidural may benefit from Lasix today FH CHF, may benefit from Echo - will await ICU evaluation appreciate ICU/Pulm evaluation & recommendations Time with Patient: Less than 30
[2022-06-09] MEDS: ALBUTEROL NEBULIZED 2.5 MG/3 ML INHALATION SCH ×3 (11:44→20:30)
[2022-06-09] MEDS: IPRATROPIUM 0.5 MG/2.5 ML NEBU INHALATION SCH ×3 (11:44→20:30)
[2022-06-09] MEDS ORDERED: IPRATROPIUM-ALBUTEROL 3 ML NEB INHALATION SCH (12:00)
--- NOTE | 2022-06-09 12:18 | P.CNPUL ---
History of Present Illness Consult date: 06/09/22 Requesting physician: Reyna Olivia Reason for consult: dyspnea, pneumothorax, other (Pulmonary contusion) Chief complaint: Status post fall with rib fractures History of present illness: This is a 61-year-old white male with history of alcohol abuse, [id number] smoking history, COPD, patient was admitted on 06/06/2022, he was admitted status post fall. His initial trauma was related to being bucked off a horse about 8 days prior to this admission. Patient sustained some trauma to the right flank area. But did not bother him much except for some discomfort and pain. One day prior to admission, patient fell down the stairs, patient tripped and fell over 3 steps of cement stairs, landed on his right side, and apparently he sustained about a 10% to 20% pneumothorax and 2 rib fractures on the right side including rib #7 and rib #8. He was also noted to have some pulmonary contusion and small pleural effusion/hemothorax on the right side. Patient was admitted on 06/06/2022, however I was made aware of this patient last night as he was developing more and more shortness of breath requiring relatively high FiO2 which was titrated until he ended up on airvo at 90% and 60 L flow, and I recommended transfer to the ICU at that point. CT angiogram of the chest showed no evidence of pulmonary embolism however the patient developed bilateral pulmonary airspace consolidation and atelectasis as well as a small right-sided pleural effusion on the right side. The size of the pneumothorax is basically about the same and seems to be resolving based on the chest x-ray noted today. Nonetheless the patient is developing worsening bilateral lower airspace consolidation and atelectasis. It is not clear whether the findings are findings of pulmonary contusion with pneumonia or possibly pneumonia affecting both lungs. Patient denies any history of aspiration or loss of consciousness but he does admit to drinking significant amount of alcohol, denies being alcoholic. At any rate after evaluating the patient, I recommended empiric treatment with antibiotics,/Zosyn pro-calcitonin level was ordered, I also recommended treating the patient for underlying COPD and also started the patient on steroids. Review of Systems Constitutional: Negative. HEENT: Negative. Pulmonary: As noted in HPI mostly shortness of breath right-sided chest pain and occasional cough. Cardiac: Negative GI: Negative Genitourinary: Negative Musculoskeletal: Right-sided chest wall pain Neurologic: Negative Endocrine: Negative Hematologic: Negative Psychiatric: Negative Skin: Bruising from fall in the right groin area since he was bucked off a horse Past Medical History Past Medical History: Vascular Disorder History of Any Multi-Drug Resistant Organisms: None Reported Past Surgical History: Heart Catheterization Additional Past Surgical History / Comment(s): Right common iliac artery stenting Past Anesthesia/Blood Transfusion Reactions: No Reported Reaction Past Psychological History: No Psychological Hx Reported Smoking Status: Current every day smoker Past Alcohol Use History: Occasional (endorses every other day EtOH use, denies withdrawal symptoms) Past Drug Use History: None Reported - Past Family History Mother Family Medical History: Coronary Artery Disease (CAD), Diabetes Mellitus Medications and Allergies Home Medications Medication Instructions Recorded Confirmed Type No Known Home Medications 06/07/22 06/07/22 History Allergies Allergy/AdvReac Type Severity Reaction Status Date / Time No Known Allergies Allergy Verified 06/07/22 06:17 Physical Exam Vitals: Vital Signs Temp Pulse Pulse Resp BP BP Pulse Ox 06/09/22 12:00 80 15 06/09/22 11:48 74 15 06/09/22 11:00 82 14 111/65 93 L 06/09/22 10:00 84 34 H 115/67 94 L 06/09/22 09:00 92 22 121/73 91 L 06/09/22 08:19 94 L 06/09/22 08:00 98.2 F 90 31 H 125/70 89 L 06/09/22 07:00 93 15 154/82 89 L 06/09/22 06:00 86 33 H 129/77 06/09/22 05:00 99 17 136/78 89 L 06/09/22 04:42 108 H 06/09/22 04:21 90 L 06/09/22 04:08 98 18 89 L 06/09/22 03:35 92 L 06/09/22 03:32 88 L 06/09/22 03:30 97.5 F L 100 22 129/67 86 L 06/09/22 02:00 100 22 06/09/22 00:00 97.6 F 100 16 130/76 92 L 06/08/22 21:35 94 L 06/08/22 20:42 91 L 06/08/22 20:02 90 L 06/08/22 20:00 97.3 F L 102 H 18 173/73 88 L 06/08/22 19:16 171/78 06/08/22 16:00 99.5 F 100 22 181/84 88 L 06/08/22 14:00 92 18 FiO2 06/09/22 12:00 06/09/22 11:48 06/09/22 11:00 06/09/22 10:00 06/09/22 09:00 06/09/22 08:19 92 06/09/22 08:00 90 06/09/22 07:00 06/09/22 06:00 06/09/22 05:00 06/09/22 04:42 06/09/22 04:21 92 06/09/22 04:08 06/09/22 03:35 06/09/22 03:32 06/09/22 03:30 06/09/22 02:00 06/09/22 00:00 06/08/22 21:35 06/08/22 20:42 06/08/22 20:02 06/08/22 20:00 06/08/22 19:16 06/08/22 16:00 06/08/22 14:00 Intake and Output 06/08/22 06/09/22 06/09/22 22:59 06:59 14:59 Intake Total 240 100 300 Output Total 1100 2000 550 Balance -860 -1900 -250 Intake: IV 300 Magnesium Sulfate-D5w Pmx 200 1 gm In Dextrose/Water 1 100ml.bag @ 100 mls/hr IVPB Q1H [facility] Rx#: [id number] Piperacillin-Tazobactam 3 100 .375 gm In Sodium Chloride 0.9% 100 ml @ 25 mls/hr IVPB Q8HR [facility] Rx# :[id number] Intake, IV Titration 100 Amount Magnesium Sulfate-D5w Pmx 100 1 gm In Dextrose/Water 1 100ml.bag @ 100 mls/hr IVPB Q1H [facility] Rx#: [id number] Oral 240 Output: Urine 1100 2000 550 Other: Voiding Method Urinal Urinal Urinal # Voids 1 Physical Exam: Revealed a 61-year-old white male in no distress, on airvo, 90% FiO2 and 60 L Head: Atraumatic, normocephalic. HEENT:[Neck is supple.] [No neck masses.] [No thyromegaly.] [No JVD.] Chest: [Diminished breath sounds at the bases with bronchial breath sounds bilaterally. No rhonchi and no wheezes tenderness over the right sided chest wall area posteriorly. Cardiac Exam: [Normal S1 and S2, no S3 gallop, no murmur.] Abdomen: [Soft, nontender, no megaly, no rebound, no guarding, normal bowel sounds.] Some ecchymosis noted in the right groin area. Extremities: [No clubbing, no edema, no cyanosis.] Neurological Exam: [No focal neurologic deficit.] Alert and oriented 3. Psychiatric: Normal mood affect and normal mental status examination. Musculoskeletal: No deformities and no limitation in range of motion Skin: Ecchymosis in the right groin area from previous trauma related to the horse Results - Laboratory Findings CBC and BMP: 06/09/22 04:53 06/09/22 10:33 ABG ABG pH 7.51 (7.35-7.45) H 06/09/22 05:11 ABG pCO2 35 mmHg (35-45) 06/09/22 05:11 ABG pO2 63 mmHg (83-108) L 06/09/22 05:11 ABG O2 Saturation 93.5 % (94-97) L 06/09/22 05:11 PT/INR, D-dimer PT 10.4 sec (9.0-12.0) 06/06/22 20:11 INR 1.0 (<1.2) 06/06/22 20:11 Abnormal lab findings: Abnormal Labs 06/06/22 06/06/22 06/07/22 20:11 20:11 00:29 WBC RBC Hgb Hct Plt Count 99 L Lymphocytes # ABG pH ABG pO2 ABG HCO3 ABG Total CO2 ABG O2 Saturation Sodium Potassium BUN 6 L Creatinine 0.64 L Glucose 101 H Calcium Magnesium Total Protein 6.2 L Albumin Ur Specific [place] >1.050 H Urine Protein Trace H Urine Ketones 1+ H 06/08/22 06/08/22 06/08/22 17:43 17:43 20:27 WBC RBC 4.01 L Hgb Hct Plt Count 61 L Lymphocytes # 0.7 L ABG pH 7.47 H ABG pO2 57 L* ABG HCO3 26 H ABG Total CO2 27 H ABG O2 Saturation 91.4 L Sodium 130 L Potassium BUN 8 L Creatinine 0.56 L Glucose Calcium 7.5 L Magnesium Total Protein 5.3 L Albumin 2.9 L Ur Specific [place] Urine Protein Urine Ketones 06/09/22 06/09/22 06/09/22 04:53 04:53 05:11 WBC 3.2 L RBC 3.64 L Hgb 12.1 L Hct 35.1 L Plt Count 56 L Lymphocytes # ABG pH 7.51 H ABG pO2 63 L ABG HCO3 28 H ABG Total CO2 29 H ABG O2 Saturation 93.5 L Sodium 129 L Potassium 3.1 L BUN 6 L Creatinine 0.60 L Glucose Calcium 7.6 L Magnesium 1.2 L Total Protein Albumin Ur Specific [place] Urine Protein Urine Ketones - Diagnostic Findings CT scan - chest: image reviewed (As noted in HPI) Assessment and Plan Assessment: Impression: 1: Acute hypoxic respiratory failure, multifactorial, secondary to: Right sided traumatic pneumothorax Pulmonary contusion Possible aspiration pneumonia Possible ARDS secondary to pulmonary contusion Underlying COPD. 2: History of alcohol abuse. 3: Tobacco dependence syndrome and underlying COPD 4: History of peripheral vessel occlusive disease and previous iliac stent Recommendation: Continue oxygen and titrate accordingly Continue bronchodilators Continue Solu-Medrol Empiric antibiotics and decide on antibiotics after pro calcitonin level is back. Continue to monitor in the ICU Consider echocardiogram to assess LV function although the findings are not true findings of congestive heart failure based on clinical exam however considering his alcohol related history patient may have alcohol induced cardiomyopathy We will continue to follow Time with Patient: Greater than 30
--- NOTE | 2022-06-09 19:37 | CA ---
Transthoracic Echo Report Name: Dontae Cloud Age: 61 Gender: M : 1960 Exam Date: 06/09/2022 11:45 Exam Location: [facility] Ht (in): 67 Wt (lb): 180 Ordering Physician: Stephen Estrada MD Attending/Referring Phys: Service Superintendent Agatha Guillen RDCS Procedure CPT: Indications: etoh related cardiomyopathy Cardiac Hx: Technical Quality: Good Contrast 1: Total Dose (mL): Contrast 2: Total Dose (mL): MEASUREMENTS (Male / Female) Normal Values 2D ECHO LV Diastolic Diameter PLAX 5.0 cm 4.2 - 5.9 / 3.9 - 5.3 cm LV Systolic Diameter PLAX 3.1 cm IVS Diastolic Thickness 1.5 cm 0.6 - 1.0 / 0.6 - 0.9 cm LVPW Diastolic Thickness 1.5 cm 0.6 - 1.0 / 0.6 - 0.9 cm LV Relative Wall Thickness 0.6 RV Internal Dim ED PLAX 3.3 cm LA Systolic Diameter LX 3.4 cm 3.0 - 4.0 / 2.7 - 3.8 cm LV Diastolic Volume MOD 4C 88.3 cm??? LV Systolic Volume MOD 4C 42.6 cm??? LV Ejection Fraction MOD 4C 51.8 % LV Diastolic Length 4C 8.1 cm LV Systolic Length 4C 7.0 cm LV Diastolic Volume MOD 2C 97.2 cm??? LV Systolic Volume MOD 2C 40.0 cm??? LV Ejection Fraction MOD 2C 58.9 % LV Diastolic Length 2C 8.0 cm LV Systolic Length 2C 7.4 cm LA Volume 36.4 cm??? 18 - 58 / 22 - 52 cm??? M-MODE Aortic Root Diameter MM 4.1 cm MV E Point Septal Separation 0.7 cm AV Cusp Separation MM 1.9 cm DOPPLER AV Peak Velocity 147.4 cm/s AV Peak Gradient 8.7 mmHg MV Area PHT 2.8 cm??? Mitral E Point Velocity 81.0 cm/s Mitral A Point Velocity 100.0 cm/s Mitral E to A Ratio 0.8 MV Deceleration Time 275.4 ms MV E' Velocity 6.0 cm/s Mitral E to MV E' Ratio 13.4 TR Peak Velocity 233.6 cm/s TR Peak Gradient 21.8 mmHg Right Ventricular Systolic Press 26.8 mmHg FINDINGS Left Ventricle Left ventricular ejection fraction is estimated at 55-60 %. Left ventricular cavity size normal. Moderate concentric left ventricular hypertrophy. No obvious regional wall motion abnormalities. Right Ventricle Mild right ventricular dilatation. Right ventricular systolic pressure within normal limits. Right Atrium Normal right atrial size. Left Atrium Normal left atrial size. Mitral Valve Structurally normal mitral valve. No mitral stenosis, regurgitation or prolapse. Aortic Valve Trileaflet aortic valve. No aortic valve stenosis or regurgitation. Tricuspid Valve Structurally normal tricuspid valve. Mild tricuspid regurgitation. Pulmonic Valve Structurally normal pulmonic valve. No pulmonic regurgitation. Pericardium Normal pericardium. No pericardial effusion. Aorta Moderate aortic dilatation at the level of the sinuses of valsalva 41 mm CONCLUSIONS Normal biventricular systolic function No significant valvular abnormalities noted Moderate aortic dilatation at 4.1 mm Previewed by: Dr. Tevin Carrion MD (Electronically Signed) Final Date: 09 June 2022 19:36
[2022-06-10] MEDS: ACETAMINOPHEN TAB 500 MG TAB PO SCH ×4 (00:59→16:45)
[2022-06-10] MEDS: PIPERACILLIN-TAZOBACTAM 3.375 GM in SODIUM CHLORIDE 0.9% 100 ML IVPB SCH ×3 (01:00→16:01)
[2022-06-10] MEDS: methylPREDNISolone SOD SUCCI 125 MG/2 ML VIAL IV SCH ×4 (01:00→16:44)
[2022-06-10] MEDS: SODIUM CHLORIDE 0.9% 1,000 ML IV SCH ×2 (04:57→16:45)
--- NOTE | 2022-06-10 06:55 | XR ---
EXAMINATION TYPE: XR chest 1V portable DATE OF EXAM: 06/10/2022 COMPARISON: NONE HISTORY: Pneumonia TECHNIQUE: Single view FINDINGS: There is some patchy infiltrate at the lung bases. There is soft tissue air on the right la teral chest wall. There is a 10% right-sided pneumothorax. There is soft tissue air at the base of th e neck on the right side. Infiltrate in the left lower lobe is more than the right. IMPRESSION: There is right-sided pneumothorax which is small and increased compared to yesterday. There is soft t issue air on the right chest wall and base of the neck which is new compared to yesterday. Consolidation and atelectasis right lower lobe is improved. Infiltrate left lower lobe unchanged.
[2022-06-10 07:26] LABS: African American GFR (CKD) >90 (>60 ml/min/1.73 sqM); Anion Gap 6 mmol/L; Blood Urea Nitrogen 12 mg/dL (9-20); Calcium 8.1 mg/dL (8.4-10.2); Carbon Dioxide 25 mmol/L (22-30); Chloride 99 mmol/L (98-107); Glucose 140 mg/dL (74-99); Magnesium 2.4 mg/dL (1.6-2.3); Non-African American GFR(CKD) >90 (>60 ml/min/1.73 sqM); Potassium 3.8 mmol/L (3.5-5.1); Sodium 130 mmol/L (137-145)
[2022-06-10] MEDS: ALBUTEROL NEBULIZED 2.5 MG/3 ML INHALATION SCH ×4 (07:34→20:59)
[2022-06-10] MEDS: IPRATROPIUM 0.5 MG/2.5 ML NEBU INHALATION SCH ×4 (07:35→20:59)
[2022-06-10] MEDS: LIDOCAINE 5% PATCH TOPICAL SCH (08:06)
[2022-06-10] MEDS: THIAMINE 100 MG TAB PO SCH (08:06)
[2022-06-10] MEDS: HYDROmorphone 1 MG/ML 1 ML SYRINGE IVP PRN ×3 (08:07→21:26)
[2022-06-10 08:13] LABS: HCT 36.3 % (39.0-53.0); HGB 12.4 gm/dL (13.0-17.5); MCH 33.7 pg (25.0-35.0); MCHC 34.2 g/dL (31.0-37.0); MCV 98.6 fL (80.0-100.0); Mean Platelet Volume 9.3; RBC 3.68 m/uL (4.30-5.90); RDW 13.5 % (11.5-15.5)
[2022-06-10 08:17] LABS: Platelet Count 85 k/uL (150-450)
[2022-06-10] MEDS: SYMBICORT 160-4.5 MCG INHALER INHALATION SCH ×2 (10:24→20:59)
[2022-06-10] MEDS: ENOXAPARIN 30 MG/0.3 ML SYRINGE SQ SCH ×2 (12:31→21:26)
--- NOTE | 2022-06-10 13:01 | P.PN ---
Subjective Progress Note Date: 06/10/22 Principal diagnosis: Acute hypoxic respiratory failure secondary to traumatic pneumothorax and pulmonary contusion This is a 61-year-old white male with history of alcohol abuse, 68-[id number] smoking history, COPD, patient was admitted on 06/06/2022, he was admitted status post fall. His initial trauma was related to being bucked off a horse about 8 days prior to this admission. Patient sustained some trauma to the right flank area. But did not bother him much except for some discomfort and pain. One day prior to admission, patient fell down the stairs, patient tripped and fell over 3 steps of cement stairs, landed on his right side, and apparently he sustained about a 10% to 20% pneumothorax and 2 rib fractures on the right side including rib #7 and rib #8. He was also noted to have some pulmonary contusion and small pleural effusion/hemothorax on the right side. Patient was admitted on 06/06/2022, however I was made aware of this patient last night as he was developing more and more shortness of breath requiring relatively high FiO2 which was titrated until he ended up on airvo at 90% and 60 L flow, and I recommended transfer to the ICU at that point. CT angiogram of the chest showed no evidence of pulmonary embolism however the patient developed bilateral pulmonary airspace consolidation and atelectasis as well as a small right-sided pleural effusion on the right side. The size of the pneumothorax is basically about the same and seems to be resolving based on the chest x-ray noted today. Nonetheless the patient is developing worsening bilateral lower airspace consolidation and atelectasis. It is not clear whether the findings are findings of pulmonary contusion with pneumonia or possibly pneumonia affecting both lungs. Patient denies any history of aspiration or loss of consciousness but he does admit to drinking significant amount of alcohol, denies being alcoholic. At any rate after evaluating the patient, I recommended empiric tr eatment with antibiotics,/Zosyn pro-calcitonin level was ordered, I also recommended treating the patient for underlying COPD and also started the patient on steroids. Reevaluated today on 06/10/22, patient is feeling better today, breathing easier, oxygenation continues to improve, he is on 50% FiO2 and 50 L flow, O2 sats saturation remains in the 90s. Chest x-ray is also showing improvement in his right lower lobe consolidation/contusion area. Continues to have some airspace disease in the left lower lobe. On physical examination today the patient had diffuse rhonchi and crackles/wheezing, and I recommended that we continue steroids and I added Symbicort. Patient is already on Zosyn empirically. Pro- calcitonin level came back elevated at 2.04, hence we'll continue Zosyn empirically. WBC count is 5 hemoglobin is 12.4 electrolytes are normal except for slightly low sodium of 130, I believe this is mostly hyponatremia, related to his alcoholism Objective - Vital Signs Vital signs: Vital Signs Temp 97.9 F 06/10/22 12:00 Pulse 78 06/10/22 12:00 Resp 26 H 06/10/22 12:00 BP 118/77 06/10/22 12:00 Pulse Ox 90 L 06/10/22 12:00 FiO2 50 06/10/22 12:00 Intake & Output 06/09/22 06/10/22 06/10/22 18:59 06:59 18:59 Intake Total 900 600 100 Output Total 1250 1775 700 Balance -350 -1175 -600 Weight 83.6 kg Intake: IV 400 100 100 Magnesium Sulfate-D5w Pmx 200 1 gm In Dextrose/Water 1 100ml.bag @ 100 mls/hr IVPB Q1H [facility] Rx#: [id number] Piperacillin-Tazobactam 3 200 100 100 .375 gm In Sodium Chloride 0.9% 100 ml @ 25 mls/hr IVPB Q8HR [facility] Rx# :[id number] Oral 500 500 Output: Urine 1250 1775 700 Other: Voiding Method Urinal Urinal Urinal - Exam Physical Exam: Revealed a 61-year-old white male in no distress, on airvo, 50% FiO2 and 50 L flow Head: Atraumatic, normocephalic. HEENT:[Neck is supple.] [No neck masses.] [No thyromegaly.] [No JVD.] Chest: Scattered rhonchi and wheezes noted bilaterally more so on forced expiratory maneuver Cardiac Exam: [Normal S1 and S2, no S3 gallop, no murmur.] Abdomen: [Soft, nontender, no megaly, no rebound, no guarding, normal bowel sounds.] Some ecchymosis noted in the right groin area. Extremities: [No clubbing, no edema, no cyanosis.] Neurological Exam: [No focal neurologic deficit.] Alert and oriented 3. Psychiatric: Normal mood affect and normal mental status examination. Musculoskeletal: No deformities and no limitation in range of motion Skin: Ecchymosis in the right groin area and the right flank area. - Labs CBC & Chem 7: 06/10/22 06:17 06/10/22 06:17 Labs: Abnormal Lab Results - Last 24 Hours (Table) 06/09/22 06/10/22 06/10/22 Range/Units 10:33 06:17 06:17 RBC 3.68 L (4.30-5.90) m/uL Hgb 12.4 L (13.0-17.5) gm/dL Hct 36.3 L (39.0-53.0) % Plt Count 85 L D (150-450) k/uL Sodium 130 L (137-145) mmol/L Creatinine 0.51 L (0.66-1.25) mg/dL Glucose 140 H (74-99) mg/dL Calcium 8.1 L (8.4-10.2) mg/dL Magnesium 2.4 H (1.6-2.3) mg/dL Procalcitonin 2.04 H (0.02-0.09) ng/mL Assessment and Plan Assessment: Impression: 1: Acute hypoxic respiratory failure, multifactorial, secondary to: Right sided traumatic pneumothorax, basically about the same size noted on chest x-ray today. Pulmonary contusion, improving based on chest x-ray today. Possible aspiration pneumonia, patient was noted to have pro calcitonin level high, hence we'll continue Zosyn Possible ARDS secondary to pulmonary contusion, improving Underlying COPD. 2: History of alcohol abuse. 3: Tobacco dependence syndrome and underlying COPD 4: History of peripheral vessel occlusive disease and previous iliac stent 5: Hyponatremia secondary to pottomania, possible SIADH Recommendation: Echocardiogram was reviewed, no evidence of cardiomyopathy or LV dysfunction Continue oxygen and titrate accordingly Continue bronchodilators added Symbicort., Continue Solu-Medrol Continue Zosyn. May transition to Augmentin upon discharge. Continue to monitor in the ICU for the next 24 hours then transferred to regular medical floor. Assuming the patient continues to improve Time with Patient: Less than 30
[2022-06-10 16:49] LABS: Glucose,Whole Blood 178 mg/dL (70-110)
[2022-06-10 20:05] LABS: Glucose,Whole Blood 176 mg/dL (70-110)
--- NOTE | 2022-06-10 21:24 | P.PN ---
Subjective Progress Note Date: 06/10/22 Principal diagnosis: fall 6 days ago with rib fractures, small R PTX 61M who 6 days ago tripped & fell, landing on right side. Was evaluated by the ER, recommended admission. After their evaluation, they didn't feel the patient warranted a chest tube. Small 10-20% PTX on CT. Was on RA & saturating well; placed empirically on 4L NC by ER to help with resolution of PTX. Denies LOC. Underwent CT head, c-spine, chest, abdomen & pelvis which revealed R rib fx 7-8, small R PTX, ?pulmonary contusion, fat stranding along right hip & flank (likely contusion from fall). Feeling much better today. Sitting up in chair. Pain better controlled. More of cough today. O2 requirements decreasing. Objective - Vital Signs Vital signs: Vital Signs Temp 98.5 F 06/10/22 16:00 Pulse 74 06/10/22 21:03 Resp 22 06/10/22 16:31 BP 116/79 06/10/22 16:00 Pulse Ox 96 06/10/22 21:03 FiO2 40 06/10/22 21:03 Intake & Output 06/10/22 06/10/22 06/11/22 06:59 18:59 06:59 Intake Total 600 218 Output Total 1775 700 Balance -1175 -482 Weight 83.6 kg Intake: IV 100 100 Piperacillin-Tazobactam 3 100 100 .375 gm In Sodium Chloride 0.9% 100 ml @ 25 mls/hr IVPB Q8HR [facility] Rx# :[id number] Oral 500 118 Output: Urine 1775 700 Other: Voiding Method Urinal Urinal - Constitutional General appearance: Present: cooperative, no acute distress - EENT Eyes: Present: anicteric sclerae ENT: Present: hearing grossly normal - Neck Details: supple - Respiratory Respiratory: bilateral: CTA (good airflow) - Cardiovascular Rhythm: regular - Gastrointestinal General gastrointestinal: Present: soft. Absent: distended, rigid, tenderness - Integumentary Integumentary Comment(s): dry, no diaphoresis - Neurologic Neurologic Comment(s): no gross deficits - Psychiatric Psychiatric Comment(s): cooperative, normal affect - Labs CBC & Chem 7: 06/10/22 06:17 06/10/22 06:17 Labs: Abnormal Lab Results - Last 24 Hours (Table) 06/10/22 06/10/22 06/10/22 Range/Units 06:17 06:17 16:46 RBC 3.68 L (4.30-5.90) m/uL Hgb 12.4 L (13.0-17.5) gm/dL Hct 36.3 L (39.0-53.0) % Plt Count 85 L D (150-450) k/uL Sodium 130 L (137-145) mmol/L Creatinine 0.51 L (0.66-1.25) mg/dL Glucose 140 H (74-99) mg/dL POC Glucose (mg/dL) 178 H (70-110) mg/dL Calcium 8.1 L (8.4-10.2) mg/dL Magnesium 2.4 H (1.6-2.3) mg/dL 06/10/22 Range/Units 20:03 RBC (4.30-5.90) m/uL Hgb (13.0-17.5) gm/dL Hct (39.0-53.0) % Plt Count (150-450) k/uL Sodium (137-145) mmol/L Creatinine (0.66-1.25) mg/dL Glucose (74-99) mg/dL POC Glucose (mg/dL) 176 H (70-110) mg/dL Calcium (8.4-10.2) mg/dL Magnesium (1.6-2.3) mg/dL - Imaging and Cardiology Chest x-ray: report reviewed Assessment and Plan Assessment: mechanical fall R rib fx 7-8, minimally displaced small R PTX, nearly resolved on AM CXR Plan: encourage ambulation, IS use daily AM CXR lidocaine patch to help with pain control optimize multimodal pain control will change robaxin to flexeril Time with Patient: Less than 30
--- NOTE | 2022-06-10 21:51 | PN ---
PROGRESS NOTE DATE OF SERVICE: 06/10/2022 LOCATION: 263. CHIEF COMPLAINT: Acute respiratory failure. HISTORY OF PRESENT ILLNESS: This gentleman's breathing is better, and his O2 is being decreased. He has no chest pain. He has had no fever or chills. PHYSICAL EXAMINATION: VITAL SIGNS: Normal. CHEST: Breath sounds still are diminished throughout with rales, rhonchi, and inspiratory and expiratory wheezing throughout. CARDIAC: Normal. ABDOMEN: Soft and nontender. IMPRESSION: 1. Acute respiratory failure. 2. Exacerbation of chronic obstructive pulmonary disease. 3. Right-sided pneumothorax. PLAN: Continue with management of his COPD and probably move out of the unit soon. MMODL / IJN: [id number] /
--- NOTE | 2022-06-11 00:12 | PN ---
PROGRESS NOTE DATE OF SERVICE: 06/09/2022 LOCATION: [facility] CHIEF COMPLAINT: Acute respiratory failure. HISTORY OF PRESENT ILLNESS: During the night, this gentleman became acutely dyspneic and was transferred to ICU. He had no chest pain. This likely is related to COPD. His pneumothorax is unchanged and has not expanded. He has had no fever, chills, cough, hemoptysis, orthopnea, or PND etc. PHYSICAL EXAMINATION: GENERAL: He is awake and alert. He is on high-flow nasal O2. VITAL SIGNS: Normal. CHEST: Demonstrates extensive wheezing, rales, or rhonchi throughout with dyspnea and tachypnea. CARDIAC: Normal. IMPRESSION: 1. Exacerbation of chronic obstructive pulmonary disease with acute respiratory failure. 2. Right-sided pneumothorax. PLAN: Continue in ICU for current management until his pulmonary picture is cleared. MMODL / IJN: [id number] /
--- NOTE | 2022-06-11 00:20 | PN ---
PROGRESS NOTE DATE OF SERVICE: 06/08/2022 CHIEF COMPLAINT: Right-sided chest pain with pneumothorax and rib fractures. HISTORY OF PRESENT ILLNESS: This gentleman is doing fairly well, although he is a little bit short of breath. He has had no fever or chills. PHYSICAL EXAMINATION: CHEST: He has occasional rales and rhonchi bilaterally. CARDIAC: Normal. IMPRESSION: Right-sided rib fractures with pneumothorax along with chronic obstructive pulmonary disease. PLAN: Increase activity and he seems to be doing well at this time. MMODL / IJN: [id number] /
--- NOTE | 2022-06-11 00:20 | CONS ---
CONSULTATION LOCATION: [facility]. CHIEF COMPLAINT: Shortness of breath and chest pain. HISTORY OF PRESENT ILLNESS: This gentleman was admitted after he fell off a horse 8 days ago. He started to have more right-sided chest pain and shortness of breath, came to emergency room where he was found to have 2 broken ribs and about a 10-20% right pneumothorax. He does have a history of COPD. REVIEW OF SYSTEMS: He has had no hemoptysis, head injury, dizziness, headaches, change in vision or hearing, abdominal pain, nausea, vomiting, melena, hematochezia, jaundice, hematuria, frequency, urgency, etc. Past medical history, family history, personal and social histories are otherwise unremarkable or found in his admitting summary. He has not been in my office since October of 2020. He does have a history of hypertension, smoking, coronary artery disease, PVOD, alcohol abuse, elevated PSA. When he was last seen, he was on Zoloft and Lamictal. PHYSICAL EXAMINATION: VITAL SIGNS: Blood pressure is 142/78 with a pulse of 81, respirations of 36, and he is afebrile. GENERAL: Appeared to be well developed, well nourished, no acute distress. SKIN: Color is normal. Skin is warm and dry. LYMPH NODES: Not enlarged. HEENT: Head, ears, eyes, nose, mouth and throat were normal. CHEST: Demonstrates occasional rhonchi and rales bilaterally. Breath sounds may be slightly diminished on the right. CARDIAC: Normal. ABDOMEN: Soft and nontender. EXTREMITIES: Normal. NEUROLOGICAL: Intact. IMPRESSION: 1. Two right-sided rib fractures. 2. Right-sided pneumothorax. 3. Chronic obstructive pulmonary disease. RECOMMENDATIONS: None at this time. MMODL / IJN: [id number] /
[2022-06-11] MEDS: ACETAMINOPHEN TAB 500 MG TAB PO SCH ×5 (01:19→23:09)
[2022-06-11] MEDS: PIPERACILLIN-TAZOBACTAM 3.375 GM in SODIUM CHLORIDE 0.9% 100 ML IVPB SCH ×4 (01:19→20:45)
[2022-06-11] MEDS: methylPREDNISolone SOD SUCCI 125 MG/2 ML VIAL IV SCH ×2 (01:19→05:39)
[2022-06-11] MEDS: SODIUM CHLORIDE 0.9% 1,000 ML IV SCH ×2 (05:39→16:20)
[2022-06-11 05:53] LABS: Glucose,Whole Blood 150 mg/dL (70-110)
[2022-06-11 07:06] LABS: ABG Base Excess 4.6 mmol/L; ABG HCO3 28 mmol/L (21-25); ABG PCO2 35 mmHg (35-45); ABG PH 7.51 (7.35-7.45); ABG PO2 60 mmHg (83-108); ABG TCO2 29 mmol/L (19-24); Allen Test Performed? Yes
[2022-06-11 07:14] LABS: ABG Oxygen Saturation 91.3 % (94-97)
[2022-06-11] MEDS: ALBUTEROL NEBULIZED 2.5 MG/3 ML INHALATION SCH ×4 (08:13→20:18)
[2022-06-11] MEDS: IPRATROPIUM 0.5 MG/2.5 ML NEBU INHALATION SCH ×4 (08:13→20:18)
[2022-06-11] MEDS: SYMBICORT 160-4.5 MCG INHALER INHALATION SCH ×2 (08:13→20:18)
--- NOTE | 2022-06-11 08:33 | PN ---
PROGRESS NOTE DATE OF SERVICE: 06/07/2022 CHIEF COMPLAINT: Pneumothorax and fractured ribs. HISTORY OF PRESENT ILLNESS: This gentleman is doing fairly well. He is having some discomfort, but not any particular short of breath. Shortness of breath and the pneumothorax have been stable. PHYSICAL EXAMINATION: CHEST: He has good breath sounds on both sides. CARDIAC: Normal. ABDOMEN: Soft and nontender. IMPRESSION: 1. Right-sided pneumothorax. 2. Right-sided rib fractures. PLAN: Continue with nasal O2 and analgesics. MMODL / IJN: [id number] /
--- NOTE | 2022-06-11 09:01 | XR ---
EXAMINATION TYPE: XR chest 1V portable DATE OF EXAM: 06/11/2022 Comparison: 06/10/2022 Clinical History: 61-year-old male pneumothorax and rib fracture Findings: Persistent subcutaneous emphysema at the right base of the neck and along the lateral right chest wal l. There may be some increasing subcutaneous emphysema now extending into the low right axilla. AP po rtable technique limits the assessment. Heart appears upper limits of normal in size. Patchy airspace opacity left mid and lower lung and now at the right lower lung appears to be increasing. No appreci able pneumothorax. Impression: 1. Increasing patchy airspace disease left mid and lower lung and now also at the right lower lung. 2. Right pneumothorax no longer seen. 3. Subcutaneous emphysema along the right side of the chest and right base of the neck persists and m ay be minimally increased.
[2022-06-11] MEDS: ENOXAPARIN 30 MG/0.3 ML SYRINGE SQ SCH ×2 (09:14→20:45)
[2022-06-11] MEDS: LIDOCAINE 5% PATCH TOPICAL SCH (09:15)
[2022-06-11] MEDS: THIAMINE 100 MG TAB PO SCH (09:15)
[2022-06-11] MEDS: CYCLOBENZAPRINE 5 MG TAB PO PRN (09:28)
[2022-06-11] MEDS: HYDROmorphone 1 MG/ML 1 ML SYRINGE IVP PRN ×3 (09:29→23:10)
[2022-06-11] MEDS ORDERED: FUROSEMIDE 10 MG/ML 4 ML VIAL IV STA (10:34)
[2022-06-11 11:27] VITALS: BMI 28.8
[2022-06-11 11:41] LABS: Glucose,Whole Blood 150 mg/dL (70-110)
--- NOTE | 2022-06-11 13:03 | P.PN ---
Subjective Progress Note Date: 06/11/22 Principal diagnosis: fall 6 days ago with rib fractures, small R PTX 61M who 6 days ago tripped & fell, landing on right side. Was evaluated by the ER, recommended admission. After their evaluation, they didn't feel the patient warranted a chest tube. Small 10-20% PTX on CT. Was on RA & saturating well; placed empirically on 4L NC by ER to help with resolution of PTX. Denies LOC. Underwent CT head, c-spine, chest, abdomen & pelvis which revealed R rib fx 7-8, small R PTX, ?pulmonary contusion, fat stranding along right hip & flank (likely contusion from fall). Feeling much better today. Sitting up in chair. Pain better controlled. More of cough today. O2 requirements decreasing. Tearful because he doesn't understand what the retirement plan is. CXR shows resolution of PTX. Objective - Vital Signs Vital signs: Vital Signs Temp 98.9 F 06/11/22 08:00 Pulse 70 06/11/22 11:54 Resp 22 06/11/22 08:00 BP 134/64 06/11/22 08:00 Pulse Ox 99 06/11/22 11:39 FiO2 50 06/11/22 11:39 Intake & Output 06/10/22 06/11/22 06/11/22 18:59 06:59 18:59 Intake Total 218 118 Output Total 700 1850 Balance -482 -1850 118 Weight 83.6 kg Intake: IV 100 Piperacillin-Tazobactam 3 100 .375 gm In Sodium Chloride 0.9% 100 ml @ 25 mls/hr IVPB Q8HR [facility] Rx# :[id number] Oral 118 118 Output: Urine 700 1850 Other: Voiding Method Urinal Urinal Urinal - Constitutional General appearance: Present: cooperative, no acute distress - EENT Eyes: Present: anicteric sclerae ENT: Present: hearing grossly normal - Neck Details: supple - Respiratory Details: non labored, normal effort & excursion less chest wall crepitus than yesterday - Cardiovascular Rhythm: regular - Gastrointestinal General gastrointestinal: Present: soft. Absent: distended - Integumentary Integumentary Comment(s): dry, no diaphoresis - Neurologic Neurologic Comment(s): no gross deficits - Psychiatric Psychiatric Comment(s): cooperative Psychiatric: Present: appropriate affect, intact judgment & insight - Labs CBC & Chem 7: 06/10/22 06:17 06/10/22 06:17 Labs: Abnormal Lab Results - Last 24 Hours (Table) 06/10/22 06/10/22 06/11/22 Range/Units 16:46 20:03 05:52 ABG pH (7.35-7.45) ABG pO2 (83-108) mmHg ABG HCO3 (21-25) mmol/L ABG Total CO2 (19-24) mmol/L ABG O2 Saturation (94-97) % POC Glucose (mg/dL) 178 H 176 H 150 H (70-110) mg/dL 06/11/22 06/11/22 Range/Units 06:29 11:40 ABG pH 7.51 H (7.35-7.45) ABG pO2 60 L (83-108) mmHg ABG HCO3 28 H (21-25) mmol/L ABG Total CO2 29 H (19-24) mmol/L ABG O2 Saturation 91.3 L (94-97) % POC Glucose (mg/dL) 150 H (70-110) mg/dL - Imaging and Cardiology Chest x-ray: report reviewed, image reviewed Assessment and Plan Assessment: mechanical fall R rib fx 7-8, minimally displaced small R PTX, nearly resolved on AM CXR Plan: encourage ambulation, IS use daily AM CXR wean O2 as tolerated, per pulmonary will order sputum cx Time with Patient: Less than 30
--- NOTE | 2022-06-11 13:39 | P.PN ---
Subjective Progress Note Date: 06/11/22 Principal diagnosis: Acute hypoxic respiratory failure secondary to traumatic pneumothorax and pulmonary contusion This is a 61-year-old white male with history of alcohol abuse, [id number] smoking history, COPD, patient was admitted on 06/06/2022, he was admitted status post fall. His initial trauma was related to being bucked off a horse about 8 days prior to this admission. Patient sustained some trauma to the right flank area. But did not bother him much except for some discomfort and pain. One day prior to admission, patient fell down the stairs, patient tripped and fell over 3 steps of cement stairs, landed on his right side, and apparently he sustained about a 10% to 20% pneumothorax and 2 rib fractures on the right side including rib #7 and rib #8. He was also noted to have some pulmonary contusion and small pleural effusion/hemothorax on the right side. Patient was admitted on 06/06/2022, however I was made aware of this patient last night as he was developing more and more shortness of breath requiring relatively high FiO2 which was titrated until he ended up on airvo at 90% and 60 L flow, and I recommended transfer to the ICU at that point. CT angiogram of the chest showed no evidence of pulmonary embolism however the patient developed bilateral pulmonary airspace consolidation and atelectasis as well as a small right-sided pleural effusion on the right side. The size of the pneumothorax is basically about the same and seems to be resolving based on the chest x-ray noted today. Nonetheless the patient is developing worsening bilateral lower airspace consolidation and atelectasis. It is not clear whether the findings are findings of pulmonary contusion with pneumonia or possibly pneumonia affecting both lungs. Patient denies any history of aspiration or loss of consciousness but he does admit to drinking significant amount of alcohol, denies being alcoholic. At any rate after evaluating the patient, I recommended empiric tr eatment with antibiotics,/Zosyn pro-calcitonin level was ordered, I also recommended treating the patient for underlying COPD and also started the patient on steroids. Reevaluated today on 06/10/22, patient is feeling better today, breathing easier, oxygenation continues to improve, he is on 50% FiO2 and 50 L flow, O2 sats saturation remains in the 90s. Chest x-ray is also showing improvement in his right lower lobe consolidation/contusion area. Continues to have some airspace disease in the left lower lobe. On physical examination today the patient had diffuse rhonchi and crackles/wheezing, and I recommended that we continue steroids and I added Symbicort. Patient is already on Zosyn empirically. Pro- calcitonin level came back elevated at 2.04, hence we'll continue Zosyn empirically. WBC count is 5 hemoglobin is 12.4 electrolytes are normal except for slightly low sodium of 130, I believe this is mostly hyponatremia, related to his alcoholism Patient was reevaluated today on 06/11/2022, patient is now on the third floor, was transferred out of the ICU yesterday, doing fairly well except early this morning he was extremely agitated and he was refusing any treatment according to the nurse who called me this morning. However when I saw myself, patient seems to be calm, he did not get much sleep last night, hence I went ahead and discontinued his Solu-Medrol, I will transition him to oral Medrol Dosepak because of his underlying COPD. Chest x-ray continues to show bilateral airspace opacities consistent with contusion/pneumonia, his right-sided pneumothorax has resolved, patient has some minimal subcutaneous emphysema on the right side. ABG on 40% FiO2 showed a pO2 of 60 pCO2 35 pH of 7.51 Objective - Vital Signs Vital signs: Vital Signs Temp 98.9 F 06/11/22 08:00 Pulse 70 06/11/22 11:54 Resp 22 06/11/22 08:00 BP 134/64 06/11/22 08:00 Pulse Ox 99 06/11/22 11:39 FiO2 50 06/11/22 11:39 Intake & Output 06/10/22 06/11/22 06/11/22 18:59 06:59 18:59 Intake Total 218 118 Output Total 700 1850 400 Balance -498 -5092 -632 Weight 83.6 kg Intake: IV 100 Piperacillin-Tazobactam 3 100 .375 gm In Sodium Chloride 0.9% 100 ml @ 25 mls/hr IVPB Q8HR [facility] Rx# :[id number] Oral 118 118 Output: Urine 700 1850 400 Other: Voiding Method Urinal Urinal Urinal - Exam Physical Exam: Revealed a 61-year-old white male in no distress, on airvo, 50% FiO2 and 50 L flow, O2 sats is 99%. Patient could be transitioned to a high flow nasal cannula 15 L Head: Atraumatic, normocephalic. HEENT:[Neck is supple.] [No neck masses.] [No thyromegaly.] [No JVD.] Chest: Crackles and rhonchi at the bases Cardiac Exam: [Normal S1 and S2, no S3 gallop, no murmur.] Abdomen: [Soft, nontender, no megaly, no rebound, no guarding, normal bowel sounds.] Some ecchymosis noted in the right groin area. Extremities: [No clubbing, no edema, no cyanosis.] Neurological Exam: [No focal neurologic deficit.] Alert and oriented 3. Psychiatric: Normal mood affect and normal mental status examination. Musculoskeletal: No deformities and no limitation in range of motion Skin: Ecchymosis in the right groin area and the right flank area. - Labs CBC & Chem 7: 06/10/22 06:17 06/10/22 06:17 Labs: Abnormal Lab Results - Last 24 Hours (Table) 06/10/22 06/10/22 06/11/22 Range/Units 16:46 20:03 05:52 ABG pH (7.35-7.45) ABG pO2 (83-108) mmHg ABG HCO3 (21-25) mmol/L ABG Total CO2 (19-24) mmol/L ABG O2 Saturation (94-97) % POC Glucose (mg/dL) 178 H 176 H 150 H (70-110) mg/dL 06/11/22 06/11/22 Range/Units 06:29 11:40 ABG pH 7.51 H (7.35-7.45) ABG pO2 60 L (83-108) mmHg ABG HCO3 28 H (21-25) mmol/L ABG Total CO2 29 H (19-24) mmol/L ABG O2 Saturation 91.3 L (94-97) % POC Glucose (mg/dL) 150 H (70-110) mg/dL Assessment and Plan Assessment: Impression: 1: Acute hypoxic respiratory failure, multifactorial, secondary to: Right sided traumatic pneumothorax, resolved based on chest x-ray today. Pulmonary contusion Possible aspiration pneumonia, patient was noted to have pro calcitonin level high, hence we'll continue Zosyn Acute exacerbation of COPD 2: History of alcohol abuse. 3: Tobacco dependence syndrome and underlying COPD 4: History of peripheral vessel occlusive disease and previous iliac stent 5: Hyponatremia secondary to pottomania, possible SIADH Recommendation: Continue CIWA protocol. Start patient on oral Seroquel at night. Echocardiogram was reviewed, no evidence of cardiomyopathy or LV dysfunction Continue oxygen and titrate accordingly Continue bronchodilators added Symbicort., Change Solu-Medrol to a Medrol Dosepak. Continue Zosyn. May transition to Augmentin upon discharge. Continue to titrate FiO2 down hopefully the patient will tolerate high flow nasal cannula and set of airvo. We'll continue to follow Time with Patient: Less than 30
[2022-06-11] MEDS: methylPREDNISolone 4 MG TAB TAPER PO SCH (16:04)
[2022-06-11] MEDS: QUEtiapine 25 MG TAB PO SCH ×2 (16:04→20:45)
[2022-06-11 16:25] LABS: Glucose,Whole Blood 143 mg/dL (70-110)
--- NOTE | 2022-06-11 23:00 | PN ---
PROGRESS NOTE CHIEF COMPLAINT: Exacerbation of COPD. HISTORY OF PRESENT ILLNESS: This gentleman is doing little bit better. However, when he takes off the high-flow nasal O2, his PO2 drops to the 60s and he feels very short of breath. PHYSICAL EXAMINATION: CHEST: Breath sounds are still diminished with poor inspiratory and expiratory movement. There is wheezing on inspiration and expiration and scattered rales. CARDIAC: Normal. ABDOMEN: Soft, nontender. IMPRESSION: 1. Exacerbation of chronic obstructive pulmonary disease. 2. Right partial pneumothorax (resolved). PLAN: Continue with monitoring and following his pulmonary function. MMODL / IJN: [id number] /
[2022-06-12] MEDS: LORazepam 2 MG/ML INJ IV PRN ×4 (04:09→11:00)
[2022-06-12] MEDS: ACETAMINOPHEN TAB 500 MG TAB PO SCH ×4 (05:24→23:34)
[2022-06-12] MEDS ORDERED: HALOPERIDOL LACTATE 5 MG/ML 1 ML VIAL IM ONE (06:32)
[2022-06-12] MEDS: IPRATROPIUM 0.5 MG/2.5 ML NEBU INHALATION SCH ×3 (07:46→15:49)
[2022-06-12] MEDS: ALBUTEROL NEBULIZED 2.5 MG/3 ML INHALATION SCH ×3 (07:47→15:49)
[2022-06-12] MEDS: PIPERACILLIN-TAZOBACTAM 3.375 GM in SODIUM CHLORIDE 0.9% 100 ML IVPB SCH ×3 (09:43→23:35)
[2022-06-12] MEDS: ENOXAPARIN 30 MG/0.3 ML SYRINGE SQ SCH ×2 (09:43→20:00)
[2022-06-12] MEDS: LIDOCAINE 5% PATCH TOPICAL SCH (09:43)
[2022-06-12] MEDS: DEXMEDETOMIDINE/0.9% NACL(PMX) 400 MCG in EMPTY BAG 1 BAG IV SCH (10:41)
[2022-06-12 10:52] LABS: Glucose,Whole Blood 86 mg/dL (70-110)
[2022-06-12] MEDS: SYMBICORT 160-4.5 MCG INHALER INHALATION SCH (11:03)
[2022-06-12] MEDS: THIAMINE 100 MG TAB PO SCH (11:13)
--- NOTE | 2022-06-12 12:40 | P.PN ---
Subjective Progress Note Date: 06/12/22 Principal diagnosis: Acute hypoxic respiratory failure secondary to traumatic pneumothorax and pulmonary contusion This is a 61-year-old white male with history of alcohol abuse, [id number] smoking history, COPD, patient was admitted on 06/06/2022, he was admitted status post fall. His initial trauma was related to being bucked off a horse about 8 days prior to this admission. Patient sustained some trauma to the right flank area. But did not bother him much except for some discomfort and pain. One day prior to admission, patient fell down the stairs, patient tripped and fell over 3 steps of cement stairs, landed on his right side, and apparently he sustained about a 10% to 20% pneumothorax and 2 rib fractures on the right side including rib #7 and rib #8. He was also noted to have some pulmonary contusion and small pleural effusion/hemothorax on the right side. Patient was admitted on 06/06/2022, however I was made aware of this patient last night as he was developing more and more shortness of breath requiring relatively high FiO2 which was titrated until he ended up on airvo at 90% and 60 L flow, and I recommended transfer to the ICU at that point. CT angiogram of the chest showed no evidence of pulmonary embolism however the patient developed bilateral pulmonary airspace consolidation and atelectasis as well as a small right-sided pleural effusion on the right side. The size of the pneumothorax is basically about the same and seems to be resolving based on the chest x-ray noted today. Nonetheless the patient is developing worsening bilateral lower airspace consolidation and atelectasis. It is not clear whether the findings are findings of pulmonary contusion with pneumonia or possibly pneumonia affecting both lungs. Patient denies any history of aspiration or loss of consciousness but he does admit to drinking significant amount of alcohol, denies being alcoholic. At any rate after evaluating the patient, I recommended empiric tr eatment with antibiotics,/Zosyn pro-calcitonin level was ordered, I also recommended treating the patient for underlying COPD and also started the patient on steroids. Reevaluated today on 06/10/22, patient is feeling better today, breathing easier, oxygenation continues to improve, he is on 50% FiO2 and 50 L flow, O2 sats saturation remains in the 90s. Chest x-ray is also showing improvement in his right lower lobe consolidation/contusion area. Continues to have some airspace disease in the left lower lobe. On physical examination today the patient had diffuse rhonchi and crackles/wheezing, and I recommended that we continue steroids and I added Symbicort. Patient is already on Zosyn empirically. Pro- calcitonin level came back elevated at 2.04, hence we'll continue Zosyn empirically. WBC count is 5 hemoglobin is 12.4 electrolytes are normal except for slightly low sodium of 130, I believe this is mostly hyponatremia, related to his alcoholism Patient was reevaluated today on 06/11/2022, patient is now on the third floor, was transferred out of the ICU yesterday, doing fairly well except early this morning he was extremely agitated and he was refusing any treatment according to the nurse who called me this morning. However when I saw myself, patient seems to be calm, he did not get much sleep last night, hence I went ahead and discontinued his Solu-Medrol, I will transition him to oral Medrol Dosepak because of his underlying COPD. Chest x-ray continues to show bilateral airspace opacities consistent with contusion/pneumonia, his right-sided pneumothorax has resolved, patient has some minimal subcutaneous emphysema on the right side. ABG on 40% FiO2 showed a pO2 of 60 pCO2 35 pH of 7.51 Reevaluated today on 06/12/2022, patient has been extremely agitated overnight while on the medical floor, required significant amount of Ativan, and he required restraints. Obviously patient could not be handled on the regular medical floor with his mental status change and agitation suspect alcohol withdrawal unless proven otherwise. Hence I recommended that to transfer the patient back to ICU. Patient is oxygenating well, his O2 saturation is 94% to 95% on 4 L nasal cannula, no labs were done today except blood sugar of 86. Objective - Vital Signs Vital signs: Vital Signs Temp 98.3 F 06/12/22 10:42 Pulse 109 H 06/12/22 11:00 Resp 35 H 06/12/22 11:00 BP 157/108 06/12/22 11:00 Pulse Ox 93 L 06/12/22 11:00 FiO2 4 06/12/22 07:47 Intake & Output 06/11/22 06/12/22 06/12/22 18:59 06:59 18:59 Intake Total 236 123.016 Output Total 1400 400 Balance -1164 -276.984 Weight 83.6 kg Intake: Intake, IV Titration 5.016 Amount Dexmedetomidine/0.9% NaCl 5.016 (Pmx) 400 mcg In Empty Bag 1 bag @ 0.2 MCG/KG/HR 4.18 mls/hr IV .[id number] [facility] Rx#:[id number] Oral 236 118 Output: Urine 1400 400 Other: Voiding Method Urinal Urinal Diaper # Voids 3 - Exam Physical Exam: Revealed a 61-year-old white male in no distress, seems restless anxious agitated and he is in restraints Head: Atraumatic, normocephalic. HEENT:[Neck is supple.] [No neck masses.] [No thyromegaly.] [No JVD.] Chest: Minimal crackles at the bases no rhonchi no wheezes Cardiac Exam: [Normal S1 and S2, no S3 gallop, no murmur.] Abdomen: [Soft, nontender, no megaly, no rebound, no guarding, normal bowel sounds.] Some ecchymosis noted in the right groin area. Extremities: [No clubbing, no edema, no cyanosis.] Neurological Exam: [Confused, restless, agitated.. Psychiatric: Anxious mood, flat affect, confused Musculoskeletal: No deformities and no limitation in range of motion Skin: Ecchymosis in the right groin area and the right flank area. - Labs CBC & Chem 7: 06/10/22 06:17 06/10/22 06:17 Labs: Abnormal Lab Results - Last 24 Hours (Table) 06/11/22 Range/Units 16:24 POC Glucose (mg/dL) 143 H (70-110) mg/dL Microbiology - Last 24 Hours (Table) 06/11/22 12:30 Gram Stain - Preliminary Sputum Sputum Culture - Preliminary Assessment and Plan Assessment: Impression: 1: Acute hypoxic respiratory failure, multifactorial, secondary to: Right sided traumatic pneumothorax, resolved based on chest x-ray today. Pulmonary contusion Possible aspiration pneumonia, patient was noted to have pro calcitonin level high, hence we'll continue Zosyn Acute exacerbation of COPD 2: History of alcohol abuse. 3: Tobacco dependence syndrome and underlying COPD 4: History of peripheral vessel occlusive disease and previous iliac stent 5: Hyponatremia secondary to pottomania, possible SIADH Recommendation: Continue CIWA protocol. Transfer patient to ICU Start patient on Precedex in the ICU Continue Seroquel at 50 twice a day Continue oxygen and titrate accordingly Continue bronchodilators added Symbicort., Discontinue steroids altogether as May be contributing to his mental status change and agitation Continue Zosyn. Continue to titrate FiO2 down We'll continue to follow Time with Patient: Greater than 30
--- NOTE | 2022-06-12 13:05 | P.PN ---
Subjective Progress Note Date: 06/12/22 Principal diagnosis: Right sided rib fractures 7 and 8, soft tissue hematoma, 10-20% right-sided pneumothorax managed nonoperatively, suspected pulmonary contusion post fall Patient seen and examined at bedside. He was transferred to the ICU over the past 24 hours for severe symptoms of alcohol withdrawal including delirium, agitation and tachypnea. An ABG showed poor ventilation and oxygenation. Recent chest x-ray has shown apparent resolution of his presenting small pneu mothorax but interval development of what may be aspiration pneumonia or pneumonitis. Sputum cultures yielded neutrophils and mixed gilmer on Gram stain. He is presently adequately sedated, in 4. soft restraints. Noncommunicative, was severely disoriented prior to starting sedatives in the ICU. He is not requiring BiPAP or any manner of positive pressure ventilator support. He presently has a hemodynamically stable appearance in terms of his vital signs. He is afebrile, looks to be normotensive, tachypnea is improved down to a respiratory rate of 25 from 35 feet earlier today. He saturating 92% on 4 L nasal cannula. Objective - Vital Signs Vital signs: Vital Signs Temp 98.3 F 06/12/22 12:00 Pulse 80 06/12/22 12:00 Resp 25 H 06/12/22 12:00 BP 131/84 06/12/22 12:00 Pulse Ox 92 L 06/12/22 12:00 FiO2 4 06/12/22 07:47 Intake & Output 06/11/22 06/12/22 06/12/22 18:59 06:59 18:59 Intake Total 236 148.016 Output Total 1400 400 Balance -1164 -251.984 Weight 83.6 kg Intake: IV 25 Piperacillin-Tazobactam 3 25 .375 gm In Sodium Chloride 0.9% 100 ml @ 25 mls/hr IVPB Q8HR [facility] Rx# :[id number] Intake, IV Titration 5.016 Amount Dexmedetomidine/0.9% NaCl 5.016 (Pmx) 400 mcg In Empty Bag 1 bag @ 0.2 MCG/KG/HR 4.18 mls/hr IV .[id number] [facility] Rx#:[id number] Oral 236 118 Output: Urine 1400 400 Other: Voiding Method Urinal Urinal Diaper # Voids 3 - Constitutional Constitutional Comment(s): Presently sedated and nonverbal. Appears comfortable at rest. General appearance: Present: average body habitus - EENT ENT: Present: NA/AT - Respiratory Details: Slightly coarse bilaterally. No evidence of respiratory fatigue or accessory muscle use. Chest x-ray from the past 24 hours shows some mild residual subcutaneous emphysema along the right lateral chest wall but no discernible pneumothorax. - Cardiovascular Rhythm: regular - Gastrointestinal Gastrointestinal Comment(s): Abdomen is soft, nontender palpation, no guarding rebound or distention. - Neurologic Neurologic Comment(s): Patient presently sedated, noncommunicative, difficult to arouse. - Labs CBC & Chem 7: 06/10/22 06:17 06/10/22 06:17 Labs: Abnormal Lab Results - Last 24 Hours (Table) 06/11/22 Range/Units 16:24 POC Glucose (mg/dL) 143 H (70-110) mg/dL Microbiology - Last 24 Hours (Table) 06/11/22 12:30 Gram Stain - Preliminary Sputum Sputum Culture - Preliminary - Imaging and Cardiology Chest x-ray: report reviewed, image reviewed Assessment and Plan Assessment: 61-year-old gentleman with posttraumatic, closed, right-sided rib fractures 7 and 8 with mild overlying soft tissue contusion, suspicion of pulmonary contusion, and small right apical pneumothorax which would appear to have been successfully managed with out need for chest tube. Delayed presentation. Most pressing issue currently would be his alcohol withdrawal. What would appear to be an aspiration pneumonitis on chest x-ray. Plan: Continue with ICU care and medical management for alcohol withdrawal and aspiration pneumonitis. No acute surgical indications seen at present. If he does require positive pressure ventilator support or BiPAP at any time in the near future he could potentially develop recurrence of his pneumothorax that would necessitate a chest tube placement. Most recent chest x-ray shows resolution of pneumothorax. No need for intervention seen presently. We'll reassess at your request. Time with Patient: Greater than 30
--- NOTE | 2022-06-12 16:14 | XR ---
EXAMINATION TYPE: XR chest 1V DATE OF EXAM: 06/12/2022 COMPARISON: Yesterday HISTORY: Pneumothorax TECHNIQUE: Single view FINDINGS: There is diffuse airspace infiltrate in the left lung. There is some infiltrate also at the right lung base. No pneumothorax seen. There are chest leads. There is soft tissue air on the right lateral chest wall. Trachea is midline. IMPRESSION: Bilateral pulmonary airspace infiltrates which are worse on the left side and slightly in creased compared to yesterday. No heart failure. Normal heart. No pneumothorax
[2022-06-12] MEDS ORDERED: propofoL 100 ML IV ONE (17:07)
[2022-06-12] MEDS: CISATRACURIUM 200 MG in SODIUM CHLORIDE 0.9% 180 ML IV SCH (17:28)
--- NOTE | 2022-06-12 17:33 | XR ---
EXAMINATION TYPE: XR chest 1V portable DATE OF EXAM: 06/12/2022 COMPARISON: Today HISTORY: Pneumothorax TECHNIQUE: Single view FINDINGS: The endotracheal tube is 3.5 cm from the lynne. There is nasogastric tube in body of the s tomach there is bilateral moderate pulmonary airspace edema. There is some mild soft tissue air along the right chest wall. Trachea is midline. No pneumothorax. IMPRESSION: Mild soft tissue air. Bilateral pulmonary infiltrates more on the left side and not signi ficantly different than the exam 2 hours ago. No pneumothorax.
[2022-06-12] MEDS: SODIUM CHLORIDE 0.9% 1,000 ML IV SCH ×2 (18:00→23:34)
[2022-06-12 18:32] LABS: ABG Base Excess 4.9 mmol/L; ABG HCO3 31 mmol/L (21-25); ABG Oxygen Saturation 97.6 % (94-97); ABG PCO2 56 mmHg (35-45); ABG PH 7.34 (7.35-7.45); ABG PO2 101 mmHg (83-108); ABG TCO2 32 mmol/L (19-24)
[2022-06-12 18:35] LABS: Allen Test Performed? yes
[2022-06-12] MEDS ORDERED: FUROSEMIDE 10 MG/ML 4 ML VIAL IV STA (18:42)
[2022-06-12] MEDS ORDERED: DEXAMETHASONE SOD PHOSPHATE 10 MG/ML 1 ML VIAL IVP STA (18:43)
[2022-06-12] MEDS: FORMOTEROL FUMARATE 20 MCG/2 ML NEBU INHALATION SCH (19:41)
[2022-06-12] MEDS: BUDESONIDE 1 MG/2 ML NEBU INHALATION SCH (19:41)
[2022-06-12] MEDS: IPRATROPIUM-ALBUTEROL 3 ML NEB INHALATION SCH ×2 (19:41→23:45)
[2022-06-12] MEDS ORDERED: IPRATROPIUM 0.5 MG/2.5 ML NEBU INHALATION SCH (20:00)
[2022-06-12] MEDS ORDERED: ALBUTEROL NEBULIZED 2.5 MG/3 ML INHALATION SCH (20:00)
[2022-06-12] MEDS: CHLORHEXIDINE GLUCONATE 15 ML CUP MUCOUS MEM SCH (20:01)
[2022-06-12] MEDS: QUEtiapine 50 MG TAB PO SCH (20:02)
[2022-06-12] MEDS: NOREPINEPHRINE 4 MG in SODIUM CHLORIDE 0.9% 250 ML IV SCH (20:06)
[2022-06-13] MEDS: HYDROmorphone 1 MG/ML 1 ML SYRINGE IVP PRN ×3 (00:12→11:06)
[2022-06-13] MEDS: IPRATROPIUM-ALBUTEROL 3 ML NEB INHALATION SCH ×5 (03:25→21:12)
[2022-06-13] MEDS: ACETAMINOPHEN TAB 500 MG TAB PO SCH ×4 (05:16→23:07)
[2022-06-13] MEDS: CISATRACURIUM 200 MG in SODIUM CHLORIDE 0.9% 180 ML IV SCH (05:26)
[2022-06-13] MEDS: SODIUM CHLORIDE 0.9% 1,000 ML IV SCH (05:33)
[2022-06-13 06:01] LABS: ABG Base Excess 6.7 mmol/L; ABG HCO3 32 mmol/L (21-25); ABG PCO2 50 mmHg (35-45); ABG PO2 79 mmHg (83-108); ABG TCO2 33 mmol/L (19-24); Allen Test Performed? Yes
[2022-06-13 07:31] LABS: African American GFR (CKD) >90 (>60 ml/min/1.73 sqM); Anion Gap 1 mmol/L; Blood Urea Nitrogen 15 mg/dL (9-20); Calcium 7.6 mg/dL (8.4-10.2); Carbon Dioxide 33 mmol/L (22-30); Chloride 102 mmol/L (98-107); Glucose 127 mg/dL (74-99); Non-African American GFR(CKD) >90 (>60 ml/min/1.73 sqM); Potassium 3.4 mmol/L (3.5-5.1); Sodium 136 mmol/L (137-145)
[2022-06-13 07:35] LABS: Basophils % (A) 0 %; Eosinophils % (A) 0 %; HCT 32.1 % (39.0-53.0); HGB 10.9 gm/dL (13.0-17.5); Lymphocytes # (A) 0.4 k/uL (1.0-4.8); Lymphocytes % (A) 7 %; MCH 33.5 pg (25.0-35.0); MCHC 33.8 g/dL (31.0-37.0); MCV 99.3 fL (80.0-100.0); Mean Platelet Volume 7.8; Monocytes # (A) 0.4 k/uL (0-1.0); Monocytes % (A) 6 %; Neutrophils % (A) 86 %; Platelet Count 104 k/uL (150-450); RBC 3.24 m/uL (4.30-5.90); RDW 13.7 % (11.5-15.5); WBC 5.8 k/uL (3.8-10.6)
--- NOTE | 2022-06-13 07:36 | XR ---
EXAMINATION TYPE: XR chest 1V portable DATE OF EXAM: 06/13/2022 Comparison: 06/12/2022 Clinical History: 61 year-old male tube placement Findings: ET tube tip satisfactory at the level of medial clavicular heads. The distal aspect of the NG tube is obscured by patient motion. The patient's NG tube has been pulled back. There is now located at the lower chest. Aeration is improved in the upper lungs. Persistent opacities in the bilateral lower nell ngs. Heart upper limits of normal in size. Renal some subcutaneous emphysema along the right lateral lower chest wall. Impression: 1. The NG tube has been pulled back. The tip is now out of the stomach, at the lower chest level. 2. Improving aeration in the upper lungs. Persistent prominent airspace disease in the lower lungs. 3. Some subcutaneous emphysema along the lower right lateral chest wall. Correlate as to etiology.
[2022-06-13] MEDS: PIPERACILLIN-TAZOBACTAM 3.375 GM in SODIUM CHLORIDE 0.9% 100 ML IVPB SCH ×3 (07:55→23:07)
[2022-06-13] MEDS ORDERED: Potassium Replacement Protocol 1 EACH MISC MISCELLANE PRN (07:58)
[2022-06-13] MEDS: ENOXAPARIN 30 MG/0.3 ML SYRINGE SQ SCH ×2 (08:08→20:09)
[2022-06-13] MEDS: LIDOCAINE 5% PATCH TOPICAL SCH (08:08)
[2022-06-13] MEDS: CHLORHEXIDINE GLUCONATE 15 ML CUP MUCOUS MEM SCH ×2 (08:08→20:09)
[2022-06-13] MEDS: POTASSIUM CHLORIDE 10 MEQ in WATER FOR INJECTION 1 100ML.BAG IVPB SCH ×4 (08:26→12:17)
[2022-06-13] MEDS: FORMOTEROL FUMARATE 20 MCG/2 ML NEBU INHALATION SCH ×2 (08:36→21:11)
[2022-06-13] MEDS: BUDESONIDE 1 MG/2 ML NEBU INHALATION SCH ×2 (08:36→21:11)
[2022-06-13] MEDS: DEXMEDETOMIDINE/0.9% NACL(PMX) 400 MCG in EMPTY BAG 1 BAG IV SCH (10:03)
[2022-06-13] MEDS: THIAMINE 100 MG TAB PO SCH (10:05)
[2022-06-13] MEDS: QUEtiapine 50 MG TAB PO SCH ×3 (10:06→23:07)
--- NOTE | 2022-06-13 11:20 | XR ---
EXAMINATION TYPE: XR chest 1V confirm line [facility] DATE OF EXAM: 06/13/2022 COMPARISON: Earlier today HISTORY: 61-year-old male for central line placement TECHNIQUE: Single frontal view of the chest is obtained. FINDINGS: ET tube tip at the level of the clavicular heads. NG tube now courses below the diaphragm. Right IJ C VC tip at the cavoatrial junction. No appreciable pneumothorax. Heart remains unenlarged with ongoing bibasilar opacities. IMPRESSION: Right IJ CVC tip at the cavoatrial junction. NG tube has been satisfactorily advanced. Similar bibasi lar airspace disease and subcutaneous emphysema lower right lateral chest wall.
[2022-06-13] MEDS: SODIUM CHLORIDE 0.9% 80 ML with fentaNYL (PF) 1,000 MCG IV SCH ×4 (12:08→19:15)
[2022-06-13 12:09] LABS: Glucose,Whole Blood 108 mg/dL (70-110)
[2022-06-13] MEDS: ARTIFICIAL TEARS-HYPROMELLOSE DROPS 15 ML BTL BOTH EYES SCH ×3 (12:25→20:08)
--- NOTE | 2022-06-13 13:25 | OP ---
OPERATIVE REPORT DATE OF SERVICE : PROCEDURE PERFORMED: Placement of a right IJ triple-lumen catheter. PREOPERATIVE DIAGNOSES: Acute hypoxic respiratory failure and alcohol withdrawal as well as pneumonia. POSTOPERATIVE DIAGNOSES: Acute hypoxic respiratory failure and alcohol withdrawal as well as pneumonia. ANESTHESIA USED: 2 mL of 1% lidocaine. DESCRIPTION OF PROCEDURE: The patient was placed in a Trendelenburg position, the area of the cervical region was prepared in a sterile fashion. Drapes were applied. The area behind the posterior belly of the right sternocleidomastoid was locally anesthetized. Then, using the posterior approach, the right IJ vein was easily cannulated, and a guidewire was placed. Area around the guidewire was dilated, then a triple-lumen catheter was inserted over the guidewire, and the guidewire was removed. Good blood flow noted in the 3 different ports of the triple-lumen catheter, line was secured using 3.0 silk sutures, a chest x-ray showed adequate placement and no complications. MMJEFFERYL / FAITHN: [id number] /
--- NOTE | 2022-06-13 13:28 | OP ---
OPERATIVE REPORT DATE OF SERVICE : PROCEDURE PERFORMED: Placement of a right radial arterial line. PREOPERATIVE DIAGNOSIS: Acute hypoxic respiratory failure. POSTOPERATIVE DIAGNOSIS: Acute hypoxic respiratory failure. ANESTHESIA USED: None deployed. DESCRIPTION OF PROCEDURE: The right wrist was prepared in a sterile fashion. Drapes were applied. The right radial artery was palpated, easily cannulated, and a guidewire wire was placed. A Cook's catheter was inserted over the guidewire, and the guidewire was removed. Good blood flow good waveform, no complications. Line was secured using 3.0 silk sutures. MMODL / IJN: [id number] /
--- NOTE | 2022-06-13 13:34 | P.PN ---
Subjective Progress Note Date: 06/13/22 Principal diagnosis: Acute hypoxic respiratory failure secondary to traumatic pneumothorax and pulmonary contusion This is a 61-year-old white male with history of alcohol abuse, [id number] smoking history, COPD, patient was admitted on 06/06/2022, he was admitted status post fall. His initial trauma was related to being bucked off a horse about 8 days prior to this admission. Patient sustained some trauma to the right flank area. But did not bother him much except for some discomfort and pain. One day prior to admission, patient fell down the stairs, patient tripped and fell over 3 steps of cement stairs, landed on his right side, and apparently he sustained about a 10% to 20% pneumothorax and 2 rib fractures on the right side including rib #7 and rib #8. He was also noted to have some pulmonary contusion and small pleural effusion/hemothorax on the right side. Patient was admitted on 06/06/2022, however I was made aware of this patient last night as he was developing more and more shortness of breath requiring relatively high FiO2 which was titrated until he ended up on airvo at 90% and 60 L flow, and I recommended transfer to the ICU at that point. CT angiogram of the chest showed no evidence of pulmonary embolism however the patient developed bilateral pulmonary airspace consolidation and atelectasis as well as a small right-sided pleural effusion on the right side. The size of the pneumothorax is basically about the same and seems to be resolving based on the chest x-ray noted today. Nonetheless the patient is developing worsening bilateral lower airspace consolidation and atelectasis. It is not clear whether the findings are findings of pulmonary contusion with pneumonia or possibly pneumonia affecting both lungs. Patient denies any history of aspiration or loss of consciousness but he does admit to drinking significant amount of alcohol, denies being alcoholic. At any rate after evaluating the patient, I recommended empiric tr eatment with antibiotics,/Zosyn pro-calcitonin level was ordered, I also recommended treating the patient for underlying COPD and also started the patient on steroids. Reevaluated today on 06/10/22, patient is feeling better today, breathing easier, oxygenation continues to improve, he is on 50% FiO2 and 50 L flow, O2 sats saturation remains in the 90s. Chest x-ray is also showing improvement in his right lower lobe consolidation/contusion area. Continues to have some airspace disease in the left lower lobe. On physical examination today the patient had diffuse rhonchi and crackles/wheezing, and I recommended that we continue steroids and I added Symbicort. Patient is already on Zosyn empirically. Pro- calcitonin level came back elevated at 2.04, hence we'll continue Zosyn empirically. WBC count is 5 hemoglobin is 12.4 electrolytes are normal except for slightly low sodium of 130, I believe this is mostly hyponatremia, related to his alcoholism Patient was reevaluated today on 06/11/2022, patient is now on the third floor, was transferred out of the ICU yesterday, doing fairly well except early this morning he was extremely agitated and he was refusing any treatment according to the nurse who called me this morning. However when I saw myself, patient seems to be calm, he did not get much sleep last night, hence I went ahead and discontinued his Solu-Medrol, I will transition him to oral Medrol Dosepak because of his underlying COPD. Chest x-ray continues to show bilateral airspace opacities consistent with contusion/pneumonia, his right-sided pneumothorax has resolved, patient has some minimal subcutaneous emphysema on the right side. ABG on 40% FiO2 showed a pO2 of 60 pCO2 35 pH of 7.51 Reevaluated today on 06/12/2022, patient has been extremely agitated overnight while on the medical floor, required significant amount of Ativan, and he required restraints. Obviously patient could not be handled on the regular medical floor with his mental status change and agitation suspect alcohol withdrawal unless proven otherwise. Hence I recommended that to transfer the patient back to ICU. Patient is oxygenating well, his O2 saturation is 94% to 95% on 4 L nasal cannula, no labs were done today except blood sugar of 86. Patient was evaluated today on 06/13/2022, patient continued to have symptoms of alcohol withdrawal yesterday, transfer the patient to the ICU and he was started on Precedex. However he continued to have symptoms of agitation, delirium, h allucinations, and he was becoming 10 bid on Precedex. Hence I was notified about this patient at that point and I recommended intubation, and sedation on propofol. However even with relatively high dose of propofol, patient remains extremely agitated, I recommended Nimbex bolus and Nimbex infusion. Today the patient remains intubated and mechanically ventilated, he is on Nimbex and on propofol. His vent settings are assist control rate of 22 total volume 450 FiO2 55% and PEEP of 5 ABG showed a pO2 of 79 pCO2 50 pH of 7.40 and I cut down his FiO2 to 50%. Propofol is at 50 mcg/kg/m, Nimbex it at 3.5 mcg/kg/m IV fluid is 0.9 normal saline at 80 mL/h and the patient is on trickle feeds. His orogastric tube was advanced today mostly because it seemed to be proximal in the esophagus. After evaluating the patient, went ahead and placed a right triple-lumen catheter in the right IJ, and arterial line was also placed, the plan is to discontinue Nimbex and the transition to fentanyl and keep on propofol. WBC count today is 5.8 hemoglobin is 10.9. Electrolytes are normal renal profile is normal chest x-ray is showing improved aeration in the lungs compared to yesterday, nonetheless the patient continues to have prominent air space disease in lower lobes bilaterally. And some subcutaneous emphysema on the right sided lateral chest wall persists. No pneumothorax could be seen to day. Chest x-ray post IJ central line placement also showed no evidence of complications and no pneumothorax Objective - Vital Signs Vital signs: Vital Signs Temp 98.7 F 06/13/22 12:00 Pulse 75 06/13/22 12:11 Resp 20 06/13/22 12:00 BP 140/84 06/13/22 10:30 Pulse Ox 95 06/13/22 12:00 FiO2 50 06/13/22 12:00 Intake & Output 06/12/22 06/13/22 06/13/22 18:59 06:59 18:59 Intake Total 409.970 964.356 556.300 Output Total 950 1555 325 Balance -540.030 -590.644 231.300 Intake: IV 50 520 270 Piperacillin-Tazobactam 3 50 200 100 .375 gm In Sodium Chloride 0.9% 100 ml @ 25 mls/hr IVPB Q8HR [facility] Rx# :[id number] Sodium Chloride 0.9% 1, 320 170 000 ml @ 80 mls/hr IV . [id number] [facility] Rx#:[id number] Intake, IV Titration 241.970 444.356 246.300 Amount Cisatracurium 200 mg In 6.103 155.747 Sodium Chloride 0.9% 180 ml @ 1 MCG/KG/MIN 5.016 mls/hr IV .Q24H [facility]LLI Rx#: [id number] Dexmedetomidine/0.9% NaCl 57.266 (Pmx) 400 mcg In Empty Bag 1 bag @ 0.2 MCG/KG/HR 4.18 mls/hr IV .[id number] [facility] Rx#:[id number] Norepinephrine 4 mg In 4.778 Sodium Chloride 0.9% 250 ml @ 0.03 MCG/KG/MIN 9. 555 mls/hr IV .Q24H [facility]LLI Rx#:[id number] Potassium Chloride 10 meq 100 In Water For Injection 1 100ml.bag @ 100 mls/hr IVPB Q1HR [facility] Rx#: [id number] Sodium Chloride 0.9% 1, 160 80 000 ml @ 80 mls/hr IV . [id number] [facility] Rx#:[id number] propofoL 1,000 mg In 18.601 203.831 146.300 Empty Bag 1 bag @ 15 MCG/ KG/MIN 7.524 mls/hr IV . [id number] [facility] Rx#:[id number] Oral 118 Tube Feeding 10 Other 30 Output: Urine 950 1555 325 Other: Voiding Method Urinal Indwelling Catheter Indwelling Catheter # Bowel Movements 1 ABP, PAP, CO, CI - Last Documented Arterial Blood Pressure 130/49 - Exam Physical Exam: Revealed a 61-year-old white male intubated and mechanically ventilated. Sedated and paralyzed. Head: Atraumatic, normocephalic. Endotracheal tube and orogastric tube are intact HEENT:[Neck is supple.] [No neck masses.] [No thyromegaly.] [No JVD.] Chest: Rhonchi at the bases mostly. No wheezing. Cardiac Exam: [Normal S1 and S2, no S3 gallop, no murmur.] Abdomen: [Soft, nontender, no megaly, no rebound, no guarding, normal bowel sounds.] Some ecchymosis noted in the right groin area. Extremities: [No clubbing, no edema, no cyanosis.] Neurological Exam: Could not assess, patient is sedated and paralyzed. Psychiatric: Not assess. Musculoskeletal: Could not assess. Skin: Ecchymosis in the right groin area and the right flank area. - Labs CBC & Chem 7: 06/13/22 06:47 06/13/22 06:47 Labs: Abnormal Lab Results - Last 24 Hours (Table) 06/12/22 06/13/22 06/13/22 Range/Units 18:30 05:57 06:47 RBC 3.24 L (4.30-5.90) m/uL Hgb 10.9 L (13.0-17.5) gm/dL Hct 32.1 L (39.0-53.0) % Plt Count 104 L (150-450) k/uL Lymphocytes # 0.4 L (1.0-4.8) k/uL ABG pH 7.34 L (7.35-7.45) ABG pCO2 56 H 50 H (35-45) mmHg ABG pO2 79 L (83-108) mmHg ABG HCO3 31 H 32 H (21-25) mmol/L ABG Total CO2 32 H 33 H (19-24) mmol/L ABG O2 Saturation 97.6 H (94-97) % Sodium (137-145) mmol/L Potassium (3.5-5.1) mmol/L Carbon Dioxide (22-30) mmol/L Glucose (74-99) mg/dL Calcium (8.4-10.2) mg/dL 06/13/22 Range/Units 06:47 RBC (4.30-5.90) m/uL Hgb (13.0-17.5) gm/dL Hct (39.0-53.0) % Plt Count (150-450) k/uL Lymphocytes # (1.0-4.8) k/uL ABG pH (7.35-7.45) ABG pCO2 (35-45) mmHg ABG pO2 (83-108) mmHg ABG HCO3 (21-25) mmol/L ABG Total CO2 (19-24) mmol/L ABG O2 Saturation (94-97) % Sodium 136 L (137-145) mmol/L Potassium 3.4 L (3.5-5.1) mmol/L Carbon Dioxide 33 H (22-30) mmol/L Glucose 127 H (74-99) mg/dL Calcium 7.6 L (8.4-10.2) mg/dL Microbiology - Last 24 Hours (Table) 06/11/22 12:30 Gram Stain - Final Sputum Sputum Culture - Final Assessment and Plan Assessment: Impression: 1: Acute hypoxic respiratory failure, multifactorial, requiring intubation and mechanical ventilation mostly secondary to acute alcohol withdrawal and delirium tremens as well as pulmonary contusion and aspiration pneumonia not to mention the patient had acute exacerbation of COPD Right sided traumatic pneumothorax, resolved. Pulmonary contusion aspiration pneumonia, patient was noted to have pro calcitonin level high, hence we'll continue Zosyn Acute exacerbation of COPD 2: History of alcohol abuse. With symptoms of acute alcohol withdrawal requiring intubation and mechanical ventilation, did not respond to Ativan and Precedex. 3: Tobacco dependence syndrome and underlying COPD 4: History of peripheral vessel occlusive disease and previous iliac stent 5: Hyponatremia secondary to pottomania, possible SIADH, resolved. Recommendation: Continue ventilatory support Nutritional support. Enteral feeding. Continue to monitor in the ICU Continue propofol and discontinue Nimbex after starting the patient on fentanyl 0.5 mcg/kg/h Continue Seroquel at 50 twice a day GI and DVT prophylaxis. Continue oxygen and titrate accordingly Continue bronchodilators Continue to hold systemic steroids for now. Continue Zosyn. Patient is critically ill. Critical care time is over 30 minutes not including the time spent on procedures We'll continue to follow Time with Patient: Greater than 30
[2022-06-13] MEDS ORDERED: CISATRACURIUM 2 MG/ML 5 ML VIAL IV ONE (18:10)
[2022-06-13 18:40] LABS: Glucose,Whole Blood 111 mg/dL (70-110)
[2022-06-13] MEDS: NOREPINEPHRINE 4 MG in SODIUM CHLORIDE 0.9% 250 ML IV SCH (20:55)
[2022-06-13 23:35] LABS: Glucose,Whole Blood 113 mg/dL (70-110)
--- NOTE | 2022-06-14 00:01 | PN ---
PROGRESS NOTE DATE OF SERVICE: 06/13/2022 CHIEF COMPLAINT: Respiratory failure. HISTORY OF PRESENT ILLNESS: This gentleman apparently became more tachypneic yesterday and had to be sedated and placed on the ventilator. REVIEW OF SYSTEMS: Unobtainable. PHYSICAL EXAMINATION: VITAL SIGNS: Blood pressure 128/74 with sinus rhythm. CHEST: Good breath sounds are heard bilaterally. CARDIAC: Normal. ABDOMEN: Soft. IMPRESSION: 1. Respiratory failure. 2. Chronic obstructive pulmonary disease. 3. Delirium tremens. PLAN: Continue to follow during his ICU management. MMODL / IJN: [id number] /
--- NOTE | 2022-06-14 00:01 | PN ---
PROGRESS NOTE DATE OF SERVICE: 06/12/2022 CHIEF COMPLAINT: Respiratory failure and COPD. HISTORY OF PRESENT ILLNESS: This gentleman's breathing is still labored and he is still on high-flow nasal O2. He is also becoming more agitated and is probably developing DTs. PHYSICAL EXAMINATION: CHEST: Demonstrates decreased breath sounds anterior, posteriorly with scattered rales. CARDIAC: Demonstrates tachycardia. ABDOMEN: Soft, nontender. IMPRESSION: 1. Exacerbation of chronic obstructive pulmonary disease. 2. 10% right-sided pneumothorax status resolved. 3. Probable delirium tremens. MMODL / IJN: [id number] /
[2022-06-14] MEDS: SODIUM CHLORIDE 0.9% 80 ML with fentaNYL (PF) 1,000 MCG IV SCH ×2 (00:35)
[2022-06-14] MEDS: ARTIFICIAL TEARS-HYPROMELLOSE DROPS 15 ML BTL BOTH EYES SCH ×6 (00:35→19:55)
[2022-06-14] MEDS: IPRATROPIUM-ALBUTEROL 3 ML NEB INHALATION SCH ×6 (01:03→20:20)
[2022-06-14] MEDS: SODIUM CHLORIDE 0.9% 1,000 ML IV SCH ×3 (02:28→21:48)
[2022-06-14 05:10] LABS: ABG Base Excess 6.8 mmol/L; ABG HCO3 31 mmol/L (21-25); ABG Oxygen Saturation 96.2 % (94-97); ABG PCO2 44 mmHg (35-45); ABG PH 7.46 (7.35-7.45); ABG PO2 75 mmHg (83-108); ABG TCO2 32 mmol/L (19-24); Allen Test Performed? Yes
[2022-06-14 05:48] LABS: Glucose,Whole Blood 90 mg/dL (70-110)
[2022-06-14 05:56] LABS: Basophils % (A) 0 %; Eosinophils # (A) 0.1 k/uL (0-0.7); Eosinophils % (A) 1 %; HCT 31.4 % (39.0-53.0); HGB 10.5 gm/dL (13.0-17.5); Lymphocytes # (A) 0.9 k/uL (1.0-4.8); Lymphocytes % (A) 15 %; MCH 33.3 pg (25.0-35.0); MCHC 33.6 g/dL (31.0-37.0); MCV 99.3 fL (80.0-100.0); Mean Platelet Volume 7.4; Monocytes # (A) 0.4 k/uL (0-1.0); Monocytes % (A) 7 %; Neutrophils # (A) 4.3 k/uL (1.3-7.7); Neutrophils % (A) 75 %; Platelet Count 115 k/uL (150-450); RBC 3.16 m/uL (4.30-5.90); RDW 13.8 % (11.5-15.5); WBC 5.7 k/uL (3.8-10.6)
[2022-06-14] MEDS: ACETAMINOPHEN TAB 500 MG TAB PO SCH ×4 (06:01→23:03)
[2022-06-14 06:53] LABS: African American GFR (CKD) >90 (>60 ml/min/1.73 sqM); Anion Gap -3 mmol/L; Blood Urea Nitrogen 12 mg/dL (9-20); Calcium 7.7 mg/dL (8.4-10.2); Carbon Dioxide 32 mmol/L (22-30); Chloride 106 mmol/L (98-107); Glucose 91 mg/dL (74-99); Non-African American GFR(CKD) >90 (>60 ml/min/1.73 sqM); Potassium 3.1 mmol/L (3.5-5.1); Sodium 135 mmol/L (137-145)
[2022-06-14] MEDS: POTASSIUM BICARBONATE/CIT AC 20 MEQ TABLET.EFF NG-TUBE SCH ×2 (07:13→10:13)
[2022-06-14] MEDS: IPRATROPIUM 0.5 MG/2.5 ML NEBU INHALATION PRN (07:53)
[2022-06-14] MEDS: BUDESONIDE 1 MG/2 ML NEBU INHALATION SCH ×2 (07:53→20:20)
[2022-06-14] MEDS: ALBUTEROL NEBULIZED 2.5 MG/3 ML INHALATION PRN (07:53)
[2022-06-14] MEDS: FORMOTEROL FUMARATE 20 MCG/2 ML NEBU INHALATION SCH ×2 (07:53→20:20)
--- NOTE | 2022-06-14 08:13 | XR ---
EXAMINATION TYPE: XR chest 1V portable DATE OF EXAM: 06/14/2022 Comparison: 06/13/2022 Clinical History: 61-year-old male Tube placement Findings: ET and NG tubes are satisfactory. Right IJ CVC tip within the right atrium. Heart remains borderline and enlarged. Patchy bibasilar opacities persist, now worsening on the left, extending up to the midl cristel level. Impression: Persistent and bilateral lower lung opacities, now worsening on the left.
[2022-06-14] MEDS: DEXMEDETOMIDINE/0.9% NACL(PMX) 400 MCG in EMPTY BAG 1 BAG IV SCH (10:08)
[2022-06-14] MEDS: PIPERACILLIN-TAZOBACTAM 3.375 GM in SODIUM CHLORIDE 0.9% 100 ML IVPB SCH ×3 (10:11→23:05)
[2022-06-14] MEDS: THIAMINE 100 MG TAB PO SCH (10:11)
[2022-06-14] MEDS: ENOXAPARIN 30 MG/0.3 ML SYRINGE SQ SCH ×2 (10:12→20:30)
[2022-06-14] MEDS: QUEtiapine 50 MG TAB PO SCH ×2 (10:12→20:30)
[2022-06-14] MEDS: LIDOCAINE 5% PATCH TOPICAL SCH (10:13)
[2022-06-14] MEDS: CHLORHEXIDINE GLUCONATE 15 ML CUP MUCOUS MEM SCH (10:13)
[2022-06-14] MEDS: HYDROmorphone 1 MG/ML 1 ML SYRINGE IVP PRN ×3 (10:20→20:31)
--- NOTE | 2022-06-14 11:10 | P.PN ---
Subjective Progress Note Date: 06/14/22 Principal diagnosis: Respiratory failure. Patient was reevaluated today on 06/11/2022, patient is now on the third floor, was transferred out of the ICU yesterday, doing fairly well except early this morning he was extremely agitated and he was refusing any treatment according to the nurse who called me this morning. However when I saw myself, patient seems to be calm, he did not get much sleep last night, hence I went ahead and discontinued his Solu-Medrol, I will transition him to oral Medrol Dosepak because of his underlying COPD. Chest x-ray continues to show bilateral airspace opacities consistent with contusion/pneumonia, his right-sided pneumothorax has resolved, patient has some minimal subcutaneous emphysema on the right side. ABG on 40% FiO2 showed a pO2 of 60 pCO2 35 pH of 7.51 Reevaluated today on 06/12/2022, patient has been extremely agitated overnight while on the medical floor, required significant amount of Ativan, and he required restraints. Obviously patient could not be handled on the regular medical floor with his mental status change and agitation suspect alcohol withdrawal unless proven otherwise. Hence I recommended that to transfer the patient back to ICU. Patient is oxygenating well, his O2 saturation is 94% to 95% on 4 L nasal cannula, no labs were done today except blood sugar of 86. Patient was evaluated today on 06/13/2022, patient continued to have symptoms of alcohol withdrawal yesterday, transfer the patient to the ICU and he was started on Precedex. However he continued to have symptoms of agitation, delirium, julianna lucinations, and he was becoming 10 bid on Precedex. Hence I was notified about this patient at that point and I recommended intubation, and sedation on propofol. However even with relatively high dose of propofol, patient remains extremely agitated, I recommended Nimbex bolus and Nimbex infusion. Today the patient remains intubated and mechanically ventilated, he is on Nimbex and on propofol. His vent settings are assist control rate of 22 total volume 450 FiO2 55% and PEEP of 5 ABG showed a pO2 of 79 pCO2 50 pH of 7.40 and I cut down his FiO2 to 50%. Propofol is at 50 mcg/kg/m, Nimbex it at 3.5 mcg/kg/m IV fluid is 0.9 normal saline at 80 mL/h and the patient is on trickle feeds. His orogastric tube was advanced today mostly because it seemed to be proximal in the esophagus. After evaluating the patient, went ahead and placed a right triple-lumen catheter in the right IJ, and arterial line was also placed, the plan is to discontinue Nimbex and the transition to fentanyl and keep on propofol. WBC count today is 5.8 hemoglobin is 10.9. Electrolytes are normal renal profile is normal chest x-ray is showing improved aeration in the lungs compared to yesterday, nonetheless the patient continues to have prominent air space disease in lower lobes bilaterally. And some subcutaneous emphysema on the right sided lateral chest wall persists. No pneumothorax could be seen toda y. Chest x-ray post IJ central line placement also showed no evidence of complications and no pneumothorax Progress note dated 06/14/2022. This is a 61-year-old male who was admitted back on June 06. At that time, he was having frequent falling, from alcohol intoxication, and sustained rib frac tures and a small pneumothorax. The patient was intubated on June 12 for respiratory failure and confusion. She had been in and out of the intensive care unit, a couple times. Currently he remains on the mechanical ventilator. He is on the volume assist control, rate 22, tidal volume 450, FiO2 40%, and PEEP of 5. Blood gases show pO2 75, pCO2 44, pH is 7.46. This blood gases consistent with a mild metabolic alkalosis. The patient's getting saline at 80 mL an hour, propofol at 40 mcg/kg/m, fentanyl 1 mcg/kg/h, and vital high protein at 10 mL an hour. Today, we will attempt a daily interruption of sedation and a spontaneous breathing trial. White count 5.7, hemoglobin 10.5, hematocrit 31.4, with a platelet count of 115,000. Sodium 135, potassium 3.1, chlorides 106, CO2 32, BUN and creatinine are both normal. Chest x-ray shows bibasilar infiltrates or atelectasis. Objective - Vital Signs Vital signs: Vital Signs Temp 98.9 F 06/14/22 08:00 Pulse 77 06/14/22 10:30 Resp 17 06/14/22 10:30 BP 135/75 06/14/22 10:30 Pulse Ox 90 L 06/14/22 10:30 FiO2 40 06/14/22 10:00 Intake & Output 06/13/22 06/14/22 06/14/22 18:59 06:59 18:59 Intake Total 5960.456 0655.091 413.025 Output Total 535 930 180 Balance 496.853 455.091 233.025 Intake: IV 330 896 346 Piperacillin-Tazobactam 3 100 100 100 .375 gm In Sodium Chloride 0.9% 100 ml @ 25 mls/hr IVPB Q8HR [facility] Rx# :[id number] Pressure bag 0.9 36 6 Sodium Chloride 0.9% 1, 230 760 240 000 ml @ 80 mls/hr IV . [id number] [facility] Rx#:[id number] Intake, IV Titration 571.853 359.091 47.025 Amount Cisatracurium 200 mg In 144.043 Sodium Chloride 0.9% 180 ml @ 1 MCG/KG/MIN 5.016 mls/hr IV .Q24H [facility] Rx#: [id number] Potassium Chloride 10 meq 100 In Water For Injection 1 100ml.bag @ 100 mls/hr IVPB Q1HR [facility] Rx#: [id number] Sodium Chloride 0.9% 80 74.335 ml @ 1 MCG/KG/HR 8.36 mls /hr IV .[id number] [facility] with fentaNYL (PF) 1,000 mcg Rx#:[id number] propofoL 1,000 mg In 327.810 284.756 47.025 Empty Bag 1 bag @ 15 MCG/ KG/MIN 7.524 mls/hr IV . [id number] [facility] Rx#:[id number] Tube Feeding 70 130 20 Other 60 Output: Urine 535 930 180 Other: Voiding Method Indwelling Catheter Indwelling Catheter Indwelling Catheter ABP, PAP, CO, CI - Last Documented Arterial Blood Pressure 130/52 - Exam No acute distress, sedated, on propofol and fentanyl, with an orally placed endotracheal tube. HEENT examination is grossly unremarkable. Neck supple. Full range of motion. No adenopathy thyromegaly or neck vein distention. Cardiovascular examination reveals regular rhythm rate. S1-S2 normal. No S3 or S4. No discernible murmur noted. Heart rate 75 bpm. Lungs reveal scattered bilateral rhonchi. No wheezes. No crackles. Breath sounds equal bilaterally. Saturations are 98%. Abdomen soft with bowel sounds. No masses. Extremities are intact. No cyanosis clubbing or edema. Skin is without rash or lesion. Neurologic examination cannot be adequately assessed. - Labs CBC & Chem 7: 06/14/22 05:17 06/14/22 05:17 Labs: Abnormal Lab Results - Last 24 Hours (Table) 06/13/22 06/13/22 06/14/22 Range/Units 18:38 23:33 05:06 RBC (4.30-5.90) m/uL Hgb (13.0-17.5) gm/dL Hct (39.0-53.0) % Plt Count (150-450) k/uL Lymphocytes # (1.0-4.8) k/uL ABG pH 7.46 H (7.35-7.45) ABG pO2 75 L (83-108) mmHg ABG HCO3 31 H (21-25) mmol/L ABG Total CO2 32 H (19-24) mmol/L Sodium (137-145) mmol/L Potassium (3.5-5.1) mmol/L Carbon Dioxide (22-30) mmol/L POC Glucose (mg/dL) 111 H 113 H (70-110) mg/dL Calcium (8.4-10.2) mg/dL 06/14/22 06/14/22 Range/Units 05:17 05:17 RBC 3.16 L (4.30-5.90) m/uL Hgb 10.5 L (13.0-17.5) gm/dL Hct 31.4 L (39.0-53.0) % Plt Count 115 L (150-450) k/uL Lymphocytes # 0.9 L (1.0-4.8) k/uL ABG pH (7.35-7.45) ABG pO2 (83-108) mmHg ABG HCO3 (21-25) mmol/L ABG Total CO2 (19-24) mmol/L Sodium 135 L (137-145) mmol/L Potassium 3.1 L (3.5-5.1) mmol/L Carbon Dioxide 32 H (22-30) mmol/L POC Glucose (mg/dL) (70-110) mg/dL Calcium 7.7 L (8.4-10.2) mg/dL Microbiology - Last 24 Hours (Table) 06/13/22 21:42 Sputum Culture - Preliminary Sputum 06/11/22 12:30 Gram Stain - Final Sputum Sputum Culture - Final Assessment and Plan Assessment: Acute hypoxemic respiratory failure, requiring intubation and mechanical ventilation, on 06/12/2022. Respiratory failure secondary to acute alcohol withdrawal, delirium tremens, pulmonary contusion, aspiration pneumonia, and small right-sided pneumothorax. Right-sided pneumothorax with pulmonary contusion. Acute exacerbation of COPD. History of chronic alcohol abuse with multiple falls. Tobacco dependence syndrome. Peripheral vascular occlusive disease. Hyponatremia, secondary to beer potomania. Plan: Plan dated 06/14/2022. The patient's propofol and fentanyl will be held. We will attempt a daily int erruption of sedation and a spontaneous breathing trial. If the patient's weaning parameters and rapid shallow breathing index are adequate, we will consider extubation. Labs, x-rays, and medications are reviewed. The patient's overall prognosis remains guarded. We will continue to follow this patient and make recommendations along the way. Time with Patient: Greater than 30
[2022-06-14] MEDS: POTASSIUM CHLORIDE ER 20 MEQ TAB.ER PO SCH ×2 (18:00→18:48)
--- NOTE | 2022-06-14 19:54 | P.PN ---
Progress Note - Text Progress Note Date: 06/14/22 Initially admitted for fall with subsequent rib fractures & pneumothorax. Pain was well controlled & PTX resolved. Anticipated discharge over weekend when he began having DTs & alcohol withdrawal. Moved to ICU & intubated. No further trauma needs at this time. Case discussed with Dr. Pulido & Masoud; will transfer service to [place] emergency department. Will need outpatient surgical follow up with CXR. Instructions placed in discharge plan. Will re-evaluate at your request.
[2022-06-14] MEDS ORDERED: POTASSIUM CHLORIDE ER 20 MEQ TAB.ER PO SCH (23:00)
[2022-06-15] MEDS: ARTIFICIAL TEARS-HYPROMELLOSE DROPS 15 ML BTL BOTH EYES SCH ×7 (00:03→23:54)
[2022-06-15] MEDS: IPRATROPIUM-ALBUTEROL 3 ML NEB INHALATION SCH ×6 (01:07→20:56)
[2022-06-15] MEDS: POTASSIUM CHLORIDE ER 20 MEQ TAB.ER PO SCH ×2 (01:47→02:54)
[2022-06-15 06:18] LABS: Basophils % (A) 0 %; Eosinophils # (A) 0.1 k/uL (0-0.7); Eosinophils % (A) 1 %; HCT 33.8 % (39.0-53.0); HGB 11.6 gm/dL (13.0-17.5); Lymphocytes # (A) 0.8 k/uL (1.0-4.8); Lymphocytes % (A) 13 %; MCH 33.7 pg (25.0-35.0); MCHC 34.5 g/dL (31.0-37.0); MCV 97.8 fL (80.0-100.0); Mean Platelet Volume 7.4; Monocytes # (A) 0.3 k/uL (0-1.0); Monocytes % (A) 6 %; Neutrophils # (A) 4.7 k/uL (1.3-7.7); Neutrophils % (A) 80 %; Platelet Count 120 k/uL (150-450); RBC 3.45 m/uL (4.30-5.90); RDW 13.7 % (11.5-15.5); WBC 5.9 k/uL (3.8-10.6)
[2022-06-15] MEDS: ACETAMINOPHEN TAB 500 MG TAB PO SCH ×4 (06:33→23:54)
[2022-06-15 06:59] LABS: ALT 30 U/L (4-49); AST 36 U/L (17-59); African American GFR (CKD) >90 (>60 ml/min/1.73 sqM); Albumin 2.4 g/dL (3.5-5.0); Alkaline Phosphatase 169 U/L (38-126); Anion Gap 4 mmol/L; Blood Urea Nitrogen 7 mg/dL (9-20); Calcium 7.8 mg/dL (8.4-10.2); Carbon Dioxide 26 mmol/L (22-30); Chloride 104 mmol/L (98-107); Glucose 97 mg/dL (74-99); Magnesium 1.6 mg/dL (1.6-2.3); Non-African American GFR(CKD) >90 (>60 ml/min/1.73 sqM); Potassium 3.9 mmol/L (3.5-5.1); Sodium 134 mmol/L (137-145); Total Bilirubin 1.2 mg/dL (0.2-1.3); Total Protein 4.8 g/dL (6.3-8.2)
[2022-06-15] MEDS ORDERED: Magnesium Replacement Protocol 1 EACH MISC MISCELLANE PRN (07:04)
[2022-06-15] MEDS ORDERED: MAGNESIUM SULFATE-D5W PMX 1 GM in DEXTROSE/WATER 1 100ML.BAG IVPB SCH (07:15)
[2022-06-15] MEDS ORDERED: POTASSIUM CHLORIDE ER 20 MEQ TAB.ER PO SCH (08:00)
--- NOTE | 2022-06-15 08:00 | XR ---
EXAMINATION TYPE: XR chest 1V portable DATE OF EXAM: 06/15/2022 6:01 AM COMPARISON: Chest radiographs from 06/14/2022 TECHNIQUE: XR chest 1V portable Portable AP radiograph of the chest. CLINICAL INDICATION:Male, 61 years old with history of Tube placement; FINDINGS: Lungs/Pleura: Redemonstration of patchy bibasilar airspace opacities with small bilateral pleural eff usions. Increased left upper lung patchy airspace opacities. Pulmonary vascularity: Unremarkable. Heart/mediastinum: Cardiomediastinal silhouette is again borderline enlarged. Musculoskeletal: No acute osseous pathology. Other findings: None Lines/Tubes: Right internal jugular central venous catheter with distal tip in the right atrium again. Interval removal NG and endotracheal tubes. IMPRESSION: 1. Interval removal of NG and endotracheal tubes with stable right IJ central venous catheter aerate d 2. Similar patchy bibasilar airspace opacities with small bilateral pleural effusions and increased left upper lung patchy airspace opacities.
[2022-06-15] MEDS: QUEtiapine 25 MG TAB PO SCH (08:35)
[2022-06-15] MEDS: methylPREDNISolone 4 MG TAB TAPER PO SCH (08:35)
[2022-06-15] MEDS: THIAMINE 100 MG TAB PO SCH (08:40)
[2022-06-15] MEDS: QUEtiapine 50 MG TAB PO SCH ×2 (08:40→20:17)
[2022-06-15] MEDS: ENOXAPARIN 30 MG/0.3 ML SYRINGE SQ SCH ×2 (08:40→20:16)
[2022-06-15] MEDS: MAGNESIUM SULFATE-D5W PMX 1 GM in DEXTROSE/WATER 1 100ML.BAG IVPB SCH ×2 (08:41→09:56)
[2022-06-15] MEDS: PIPERACILLIN-TAZOBACTAM 3.375 GM in SODIUM CHLORIDE 0.9% 100 ML IVPB SCH ×3 (08:41→23:53)
[2022-06-15] MEDS: HYDROmorphone 1 MG/ML 1 ML SYRINGE IVP PRN (08:41)
[2022-06-15] MEDS: SODIUM CHLORIDE 0.9% 1,000 ML IV SCH (08:42)
[2022-06-15] MEDS: LIDOCAINE 5% PATCH TOPICAL SCH (08:42)
[2022-06-15] MEDS: BUDESONIDE 1 MG/2 ML NEBU INHALATION SCH ×2 (08:44→20:56)
[2022-06-15] MEDS: FORMOTEROL FUMARATE 20 MCG/2 ML NEBU INHALATION SCH ×2 (08:44→20:56)
[2022-06-15] MEDS: IPRATROPIUM 0.5 MG/2.5 ML NEBU INHALATION PRN (08:44)
[2022-06-15] MEDS: ALBUTEROL NEBULIZED 2.5 MG/3 ML INHALATION PRN (08:44)
--- NOTE | 2022-06-15 11:23 | P.PN ---
Subjective Progress Note Date: 06/15/22 Hospital Course: 61-year-old male with history of daily alcohol use, and nicotine use presented after a fall. Initial CT abdomen and pelvis showed a small right pneumothorax and trace right pleural effusion, right lower lobe consolidative changes, pulmonary contusion, minimally displaced right seventh and eighth rib fractures, emphysema. Head CT and cervical spine CT showed no acute process. Patient was initially admitted to trauma service. He started to have hypoxic respiratory failure requiring high flow nasal cannula, transferred to the medical ICU. Patient improved with empiric antibiotics for possible aspiration pneumonia, as well as steroids and bronchodilators for acute exacerbation of COPD. He was transferred back to the floors, and developed agitation, I clearly related to alcohol withdrawal. He was transferred back to the medical ICU, requiring Precedex drip and frequent Ativan. He was briefly intubated, now extubated on nasal cannula. Subjective: Patient seen and examined at bedside. No acute events overnight. He claims that his shortness of breath is improving. He denies any chest pain, abdominal pain, nausea, vomiting, diarrhea, constipation. He denies getting out of the bed. He currently has a urinary catheter. Pertinent positives and negatives as discussed above, a complete review of systems was performed and all other systems are negative. Vitals Signs Reviewed. General: nontoxic, no distress, appears at stated age Derm: warm, dry Head: atraumatic, normocephalic, symmetric Eyes: EOMI, no lid lag, anicteric sclera Mouth: no lip lesion, mucus membranes moist Cardiovascular: S1S2 reg, no murmur Lungs: CTA bilateral, no rhonchi, no rales , no accessory muscle use, supplemental oxygen Abdominal: soft, nontender to palpation, no guarding, no appreciable organomegaly Ext: no gross muscle atrophy, no edema, no contractures Neuro: CN II-XI grossly intact, no focal neuro deficits Psych: Alert, oriented, appropriate affect Data Reviewed Today: Pertinent Labs: Hemoglobin 11.6, platelets 120, sodium 134, creatinine 0.63, albumin 2.4, calcium 7.8, magnesium 1.6 Imaging: Chest x-ray independently interpreted, bilateral lower lobe opacities more prominent on the left Assessment and Plan: Patient is currently critically ill in the medical ICU, was recently extubated, remains on supplemental oxygen. Also being treated for acute alcohol withdrawal. Active: Acute hypoxic respiratory failure now status post extubation Pulmonary contusion Small right-sided pneumothorax, traumatic Right-sided seventh and eighth rib fracture Aspiration pneumonia Acute COPD exacerbation History of alcohol use with multiple falls Acute alcohol withdrawal Acute delirium tremens Mild hyponatremia Normocytic anemia Thrombocytopenia Nicotine dependence -Currently on 3 L nasal cannula, continue to wean -Trauma surgery following -IV Dilaudid for pain, received 1 mg IV push today, also received 5 mg oxycodone twice today, also on scheduled Tylenol 500 mg every 6 hours -Continue IV Zosyn 3.375 g every 8 hours for aspiration pneumonia -On bronchodilators per pulmonology -Ativan per CIWA, did not receive any doses today -Thiamine 100mg daily -Also on quetiapine 50 mg twice a day -Sodium level stable, repeat BMP tomorrow -Hemoglobin improving, no active bleeding -Thrombocytopenia likely in the setting of alcohol use -Counseled regarding smoking cessation -PT/OT ordered Resolved: Ventilator-dependent respiratory failure DVT ppx: Lovenox Code status: Full code Anticipated discharge place: Pending clinical course Anticipated discharge time: Pending clinical course Objective - Vital Signs Vital signs: Vital Signs Temp 99.0 F 06/15/22 08:00 Pulse 84 06/15/22 09:16 Resp 22 06/15/22 09:00 BP 107/57 06/15/22 09:00 Pulse Ox 96 06/15/22 09:00 FiO2 40 06/14/22 10:00 Intake & Output 06/14/22 06/15/22 06/15/22 18:59 06:59 18:59 Intake Total 2194.073 1010 750 Output Total 2380 1455 450 Balance -185.927 -445 300 Intake: IV 1204 1010 490 Invasive Line 4 20 30 20 Invasive Line 6 30 Magnesium Sulfate-D5w Pmx 100 1 gm In Dextrose/Water 1 100ml.bag @ 100 mls/hr IVPB Q1H [facility] Rx#: [id number] Piperacillin-Tazobactam 3 200 100 100 .375 gm In Sodium Chloride 0.9% 100 ml @ 25 mls/hr IVPB Q8HR [facility] Rx# :[id number] Pressure bag 0.9 24 Sodium Chloride 0.9% 1, 960 880 240 000 ml @ 80 mls/hr IV . [id number] [facility] Rx#:[id number] Intake, IV Titration 110.073 Amount Sodium Chloride 0.9% 80 63.048 ml @ 1 MCG/KG/HR 8.36 mls /hr IV .[id number] [facility] with fentaNYL (PF) 1,000 mcg Rx#:[id number] propofoL 1,000 mg In 47.025 Empty Bag 1 bag @ 15 MCG/ KG/MIN 7.524 mls/hr IV . [id number] [facility] Rx#:[id number] Oral 860 260 Tube Feeding 20 Output: Urine 2380 1455 450 Other: Voiding Method Indwelling Catheter Indwelling Catheter Indwelling Catheter # Bowel Movements 0 ABP, PAP, CO, CI - Last Documented Arterial Blood Pressure 139/52 - Labs CBC & Chem 7: 06/15/22 05:47 06/15/22 05:47 Labs: Abnormal Lab Results - Last 24 Hours (Table) 06/15/22 06/15/22 Range/Units 05:47 05:47 RBC 3.45 L (4.30-5.90) m/uL Hgb 11.6 L (13.0-17.5) gm/dL Hct 33.8 L (39.0-53.0) % Plt Count 120 L (150-450) k/uL Lymphocytes # 0.8 L (1.0-4.8) k/uL Sodium 134 L (137-145) mmol/L BUN 7 L (9-20) mg/dL Creatinine 0.63 L (0.66-1.25) mg/dL Calcium 7.8 L (8.4-10.2) mg/dL Alkaline Phosphatase 169 H (38-126) U/L Total Protein 4.8 L (6.3-8.2) g/dL Albumin 2.4 L (3.5-5.0) g/dL Microbiology - Last 24 Hours (Table) 06/14/22 11:11 Gram Stain - Preliminary Sputum Sputum Culture - Preliminary 06/13/22 21:42 Gram Stain - Preliminary Sputum Sputum Culture - Preliminary
--- NOTE | 2022-06-15 11:55 | P.PN ---
Subjective Progress Note Date: 06/15/22 Principal diagnosis: Respiratory failure. Patient was reevaluated today on 06/11/2022, patient is now on the third floor, was transferred out of the ICU yesterday, doing fairly well except early this morning he was extremely agitated and he was refusing any treatment according to the nurse who called me this morning. However when I saw myself, patient seems to be calm, he did not get much sleep last night, hence I went ahead and discontinued his Solu-Medrol, I will transition him to oral Medrol Dosepak because of his underlying COPD. Chest x-ray continues to show bilateral airspace opacities consistent with contusion/pneumonia, his right-sided pneumothorax has resolved, patient has some minimal subcutaneous emphysema on the right side. ABG on 40% FiO2 showed a pO2 of 60 pCO2 35 pH of 7.51 Reevaluated today on 06/12/2022, patient has been extremely agitated overnight while on the medical floor, required significant amount of Ativan, and he required restraints. Obviously patient could not be handled on the regular medical floor with his mental status change and agitation suspect alcohol withdrawal unless proven otherwise. Hence I recommended that to transfer the patient back to ICU. Patient is oxygenating well, his O2 saturation is 94% to 95% on 4 L nasal cannula, no labs were done today except blood sugar of 86. Patient was evaluated today on 06/13/2022, patient continued to have symptoms of alcohol withdrawal yesterday, transfer the patient to the ICU and he was started on Precedex. However he continued to have symptoms of agitation, delirium, julianna lucinations, and he was becoming 10 bid on Precedex. Hence I was notified about this patient at that point and I recommended intubation, and sedation on propofol. However even with relatively high dose of propofol, patient remains extremely agitated, I recommended Nimbex bolus and Nimbex infusion. Today the patient remains intubated and mechanically ventilated, he is on Nimbex and on propofol. His vent settings are assist control rate of 22 total volume 450 FiO2 55% and PEEP of 5 ABG showed a pO2 of 79 pCO2 50 pH of 7.40 and I cut down his FiO2 to 50%. Propofol is at 50 mcg/kg/m, Nimbex it at 3.5 mcg/kg/m IV fluid is 0.9 normal saline at 80 mL/h and the patient is on trickle feeds. His orogastric tube was advanced today mostly because it seemed to be proximal in the esophagus. After evaluating the patient, went ahead and placed a right triple-lumen catheter in the right IJ, and arterial line was also placed, the plan is to discontinue Nimbex and the transition to fentanyl and keep on propofol. WBC count today is 5.8 hemoglobin is 10.9. Electrolytes are normal renal profile is normal chest x-ray is showing improved aeration in the lungs compared to yesterday, nonetheless the patient continues to have prominent air space disease in lower lobes bilaterally. And some subcutaneous emphysema on the right sided lateral chest wall persists. No pneumothorax could be seen toda y. Chest x-ray post IJ central line placement also showed no evidence of complications and no pneumothorax Progress note dated 06/14/2022. This is a 61-year-old male who was admitted back on June 06. At that time, he was having frequent falling, from alcohol intoxication, and sustained rib frac tures and a small pneumothorax. The patient was intubated on June 12 for respiratory failure and confusion. She had been in and out of the intensive care unit, a couple times. Currently he remains on the mechanical ventilator. He is on the volume assist control, rate 22, tidal volume 450, FiO2 40%, and PEEP of 5. Blood gases show pO2 75, pCO2 44, pH is 7.46. This blood gases consistent with a mild metabolic alkalosis. The patient's getting saline at 80 mL an hour, propofol at 40 mcg/kg/m, fentanyl 1 mcg/kg/h, and vital high protein at 10 mL an hour. Today, we will attempt a daily interruption of sedation and a spontaneous breathing trial. White count 5.7, hemoglobin 10.5, hematocrit 31.4, with a platelet count of 115,000. Sodium 135, potassium 3.1, chlorides 106, CO2 32, BUN and creatinine are both normal. Chest x-ray shows bibasilar infiltrates or atelectasis. Progress note dated 06/15/2022. 61-year-old male who was admitted back on June 06. The patient was admitted wi th a diagnosis of frequent falls, chronic alcohol intoxication, rib fractures, and a small pneumothorax. On June 12 he developed respiratory failure, with confusion, and required intubation. Yesterday, the patient was extubated from mechanical ventilation successfully. He is currently on 3 L of oxygen. Is getting saline at 80 mL an hour. The patient is completely awake and alert. White count 5.9, hemoglobin 11.6, hematocrit 33.8, with a platelet count of 120,000. Sodium 134, potassium 3.9, chlorides 104, CO2 26, BUN 17, creatinine 0.63. Microbiologic studies are negative. Chest x-ray shows diffuse patchy bilateral infiltrates or atelectasis. Objective - Vital Signs Vital signs: Vital Signs Temp 99.0 F 06/15/22 08:00 Pulse 84 06/15/22 09:16 Resp 22 06/15/22 09:00 BP 107/57 06/15/22 09:00 Pulse Ox 96 06/15/22 09:00 FiO2 40 06/14/22 10:00 Intake & Output 06/14/22 06/15/22 06/15/22 18:59 06:59 18:59 Intake Total 2194.073 1010 750 Output Total 2380 1455 450 Balance -185.927 -445 300 Intake: IV 1204 1010 490 Invasive Line 4 20 30 20 Invasive Line 6 30 Magnesium Sulfate-D5w Pmx 100 1 gm In Dextrose/Water 1 100ml.bag @ 100 mls/hr IVPB Q1H [facility] Rx#: [id number] Piperacillin-Tazobactam 3 200 100 100 .375 gm In Sodium Chloride 0.9% 100 ml @ 25 mls/hr IVPB Q8HR [facility] Rx# :[id number] Pressure bag 0.9 24 Sodium Chloride 0.9% 1, 960 880 240 000 ml @ 80 mls/hr IV . [id number] [facility] Rx#:[id number] Intake, IV Titration 110.073 Amount Sodium Chloride 0.9% 80 63.048 ml @ 1 MCG/KG/HR 8.36 mls /hr IV .[id number] [facility] with fentaNYL (PF) 1,000 mcg Rx#:[id number] propofoL 1,000 mg In 47.025 Empty Bag 1 bag @ 15 MCG/ KG/MIN 7.524 mls/hr IV . [id number] [facility] Rx#:[id number] Oral 860 260 Tube Feeding 20 Output: Urine 2380 1455 450 Other: Voiding Method Indwelling Catheter Indwelling Catheter Indwelling Catheter # Bowel Movements 0 ABP, PAP, CO, CI - Last Documented Arterial Blood Pressure 139/52 - Exam No acute distress, extubated, on 3 L of oxygen, without any respiratory difficulty or distress. HEENT examination is grossly unremarkable. Neck supple. Full range of motion. No adenopathy thyromegaly or neck vein distention. Cardiovascular examination reveals regular rhythm rate. S1-S2 normal. No S3 or S4. No discernible murmur noted. Heart rate 84 bpm. Lungs reveal scattered bilateral rhonchi. No wheezes. No crackles. Breath sounds equal bilaterally. Saturations are 96%. Abdomen soft with bowel sounds. No masses. Extremities are intact. No cyanosis clubbing or edema. Skin is without rash or lesion. Neurologic examination is brief but nonfocal - Labs CBC & Chem 7: 06/15/22 05:47 06/15/22 05:47 Labs: Abnormal Lab Results - Last 24 Hours (Table) 06/15/22 06/15/22 Range/Units 05:47 05:47 RBC 3.45 L (4.30-5.90) m/uL Hgb 11.6 L (13.0-17.5) gm/dL Hct 33.8 L (39.0-53.0) % Plt Count 120 L (150-450) k/uL Lymphocytes # 0.8 L (1.0-4.8) k/uL Sodium 134 L (137-145) mmol/L BUN 7 L (9-20) mg/dL Creatinine 0.63 L (0.66-1.25) mg/dL Calcium 7.8 L (8.4-10.2) mg/dL Alkaline Phosphatase 169 H (38-126) U/L Total Protein 4.8 L (6.3-8.2) g/dL Albumin 2.4 L (3.5-5.0) g/dL Microbiology - Last 24 Hours (Table) 06/14/22 11:11 Gram Stain - Preliminary Sputum Sputum Culture - Preliminary 06/13/22 21:42 Gram Stain - Preliminary Sputum Sputum Culture - Preliminary Assessment and Plan Assessment: Acute hypoxemic respiratory failure, requiring intubation and mechanical ventilation, on 06/12/2022. Respiratory failure secondary to acute alcohol withdrawal, delirium tremens, pulmonary contusion, aspiration pneumonia, and small right-sided pneumothorax. S/P successful extubation on 06/14/2022. Right-sided pneumothorax with pulmonary contusion. Acute exacerbation of COPD. History of chronic alcohol abuse with multiple falls. Tobacco dependence syndrome. Peripheral vascular occlusive disease. Hyponatremia, secondary to beer potomania. Plan: Plan dated 06/14/2022. The patient's propofol and fentanyl will be held. We will attempt a daily interruption of sedation and a spontaneous breathing trial. If the patient's weaning parameters and rapid shallow breathing index are adequate, we will consider extubation. Labs, x-rays, and medications are reviewed. The patient's overall prognosis remains guarded. We will continue to follow this patient and make recommendations along the way. Plan dated 06/15/2022. The patient appears to be doing much better. He was extubated yesterday. The patient's IV can be discontinued. He is eating. The patient can be transferred out to the general medical floor, without telemetry. We will check a pro- calcitonin level. The patient remains on Zosyn. He may or may not renew it. Prognosis is guarded. Time with Patient: Less than 30
[2022-06-15] MEDS: CYCLOBENZAPRINE 5 MG TAB PO PRN (20:53)
--- NOTE | 2022-06-15 23:26 | PN ---
PROGRESS NOTE DATE OF SERVICE: 06/14/2022 LOCATION: 262. CHIEF COMPLAINT: Respiratory failure, COPD, alcoholism, and DTs. HISTORY OF PRESENT ILLNESS: This gentleman is still on the ventilator, but he is waking up and responding. PHYSICAL EXAMINATION: CHEST: Reveals good breath sounds bilaterally. CARDIAC: Normal. ABDOMEN: Soft and nontender. IMPRESSION: 1. Respiratory failure. 2. Exacerbation of chronic obstructive pulmonary disease. 3. Chronic alcoholism. 4. Delirium tremens. PLAN: Apparently, the patient wants a different primary care, and this will be arranged. MMODL / IJN: [id number] /
[2022-06-16] MEDS: IPRATROPIUM-ALBUTEROL 3 ML NEB INHALATION SCH ×6 (00:30→20:05)
[2022-06-16] MEDS: ARTIFICIAL TEARS-HYPROMELLOSE DROPS 15 ML BTL BOTH EYES SCH ×5 (04:54→20:15)
[2022-06-16] MEDS: ACETAMINOPHEN TAB 500 MG TAB PO SCH ×3 (06:05→18:18)
[2022-06-16 07:56] LABS: Basophils % (A) 0 %; Eosinophils # (A) 0.1 k/uL (0-0.7); Eosinophils % (A) 1 %; HCT 33.7 % (39.0-53.0); HGB 11.3 gm/dL (13.0-17.5); Lymphocytes # (A) 0.8 k/uL (1.0-4.8); Lymphocytes % (A) 11 %; MCHC 33.5 g/dL (31.0-37.0); MCV 98.7 fL (80.0-100.0); Mean Platelet Volume 7.9; Monocytes # (A) 0.3 k/uL (0-1.0); Monocytes % (A) 3 %; Neutrophils % (A) 83 %; Platelet Count 135 k/uL (150-450); RBC 3.41 m/uL (4.30-5.90); RDW 13.7 % (11.5-15.5); WBC 7.3 k/uL (3.8-10.6)
[2022-06-16 08:01] LABS: African American GFR (CKD) >90 (>60 ml/min/1.73 sqM); Anion Gap 4 mmol/L; Blood Urea Nitrogen 10 mg/dL (9-20); Carbon Dioxide 25 mmol/L (22-30); Chloride 106 mmol/L (98-107); Glucose 100 mg/dL (74-99); Magnesium 1.7 mg/dL (1.6-2.3); Non-African American GFR(CKD) >90 (>60 ml/min/1.73 sqM); Potassium 3.9 mmol/L (3.5-5.1); Sodium 135 mmol/L (137-145)
[2022-06-16] MEDS: THIAMINE 100 MG TAB PO SCH (08:24)
[2022-06-16] MEDS: LIDOCAINE 5% PATCH TOPICAL SCH (08:24)
[2022-06-16] MEDS: ENOXAPARIN 30 MG/0.3 ML SYRINGE SQ SCH ×2 (08:24→20:12)
[2022-06-16] MEDS: PIPERACILLIN-TAZOBACTAM 3.375 GM in SODIUM CHLORIDE 0.9% 100 ML IVPB SCH (08:25)
[2022-06-16] MEDS: QUEtiapine 50 MG TAB PO SCH (08:25)
[2022-06-16] MEDS: SYMBICORT 160-4.5 MCG INHALER INHALATION SCH ×2 (08:31→20:05)
[2022-06-16] MEDS: LEVOFLOXACIN 500 MG TAB PO SCH (12:12)
--- NOTE | 2022-06-16 12:13 | P.PN ---
Subjective Progress Note Date: 06/16/22 Hospital Course: 61-year-old male with history of daily alcohol use, and nicotine use presented after a fall. Initial CT abdomen and pelvis showed a small right pneumothorax and trace right pleural effusion, right lower lobe consolidative changes, pulmonary contusion, minimally displaced right seventh and eighth rib fractures, emphysema. Head CT and cervical spine CT showed no acute process. Patient was initially admitted to trauma service. He started to have hypoxic respiratory failure requiring high flow nasal cannula, transferred to the medical ICU. Patient improved with empiric antibiotics for possible aspiration pneumonia, as well as steroids and bronchodilators for acute exacerbation of COPD. He was transferred back to the floors, and developed agitation, I clearly related to alcohol withdrawal. He was transferred back to the medical ICU, requiring Precedex drip and frequent Ativan. He was briefly intubated, now extubated on nasal cannula. He is currently on the medical floor. Subjective: Patient seen and examined at bedside. No acute events overnight. He claims that his shortness of breath is improving. He denies any chest pain, abdominal pain, nausea, vomiting, diarrhea, constipation. He denies getting out of the bed. He currently has a urinary catheter. Pertinent positives and negatives as discussed above, a complete review of systems was performed and all other systems are negative. Vitals Signs Reviewed. General: nontoxic, no distress, appears at stated age Derm: warm, dry Head: atraumatic, normocephalic, symmetric Eyes: EOMI, no lid lag, anicteric sclera Mouth: no lip lesion, mucus membranes moist Cardiovascular: S1S2 reg, no murmur Lungs: CTA bilateral, no rhonchi, no rales , no accessory muscle use, supplemental oxygen Abdominal: soft, nontender to palpation, no guarding, no appreciable organomegaly Ext: no gross muscle atrophy, no edema, no contractures Neuro: CN II-XI grossly intact, no focal neuro deficits Psych: Alert, oriented, appropriate affect Data Reviewed Today: Pertinent Labs: Hemoglobin 11.3, platelets 135, sodium 135, creatinine 0.68, pro-calcitonin 0.38 Sputum cultures positive for E. coli Assessment and Plan: Active: Acute hypoxic respiratory failure now status post extubation Pulmonary contusion Small right-sided pneumothorax, traumatic Right-sided seventh and eighth rib fracture Aspiration pneumonia Acute COPD exacerbation History of alcohol use with multiple falls Mild hyponatremia Normocytic anemia Thrombocytopenia -Currently on 2 L nasal cannula, continue to wean -on 5 mg oxycodone when necessary, received 1 dose today, also on scheduled Tylenol 500 mg every 6 hours -Sputum cultures are positive for E. coli, is sensitive to levofloxacin -Antibiotics changed to levofloxacin 500 mg oral every 24 hours -On bronchodilators per pulmonology -Thiamine 100mg daily -Sodium level stable, repeat BMP tomorrow -Hemoglobin stable, no active bleeding -Thrombocytopenia likely in the setting of alcohol use -Likely discharge tomorrow Resolved: Ventilator-dependent respiratory failure Acute delirium tremens Acute alcohol withdrawal Chronic: Nicotine dependence DVT ppx: Lovenox Code status: Full code Anticipated discharge place: Home with home care Anticipated discharge time: Likely tomorrow Objective - Vital Signs Vital signs: Vital Signs Temp 98.2 F 06/16/22 08:00 Pulse 90 06/16/22 11:59 Resp 16 06/16/22 08:00 BP 129/53 06/16/22 08:00 Pulse Ox 95 06/16/22 08:00 FiO2 40 06/14/22 10:00 Intake & Output 06/15/22 06/16/22 06/16/22 18:59 06:59 18:59 Intake Total 2990 322 Output Total 1550 1400 250 Balance 1440 -1078 -250 Intake: IV 690 100 Invasive Line 4 20 Invasive Line 6 30 Magnesium Sulfate-D5w Pmx 200 1 gm In Dextrose/Water 1 100ml.bag @ 100 mls/hr IVPB Q1H [facility] Rx#: [id number] Piperacillin-Tazobactam 3 200 100 .375 gm In Sodium Chloride 0.9% 100 ml @ 25 mls/hr IVPB Q8HR [facility] Rx# :[id number] Sodium Chloride 0.9% 1, 240 000 ml @ 80 mls/hr IV . [id number] [facility] Rx#:[id number] Oral 2300 222 Output: Urine 1550 1400 250 Other: Voiding Method Indwelling Catheter Urinal Urinal # Voids 1 1 # Bowel Movements 1 ABP, PAP, CO, CI - Last Documented Arterial Blood Pressure 139/52 - Labs CBC & Chem 7: 06/16/22 07:36 06/16/22 07:36 Labs: Abnormal Lab Results - Last 24 Hours (Table) 06/15/22 06/16/22 06/16/22 Range/Units 05:57 07:36 07:36 RBC 3.41 L (4.30-5.90) m/uL Hgb 11.3 L (13.0-17.5) gm/dL Hct 33.7 L (39.0-53.0) % Plt Count 135 L (150-450) k/uL Lymphocytes # 0.8 L (1.0-4.8) k/uL Sodium 135 L (137-145) mmol/L Glucose 100 H (74-99) mg/dL Calcium 8.0 L (8.4-10.2) mg/dL Procalcitonin 0.38 H (0.02-0.09) ng/mL Microbiology - Last 24 Hours (Table) 06/13/22 21:42 Gram Stain - Final Sputum Sputum Culture - Final 06/14/22 11:11 Gram Stain - Final Sputum Sputum Culture - Final Escherichia coli
--- NOTE | 2022-06-16 13:35 | P.PN ---
Subjective Progress Note Date: 06/16/22 Progress note dated 06/14/2022. This is a 61-year-old male who was admitted back on June 06. At that time, he was having frequent falling, from alcohol intoxication, and sustained rib fractures and a small pneumothorax. The patient was intubated on June 12 for respiratory failure and confusion. She had been in and out of the intensive care unit, a couple times. Currently he remains on the mechanical ventilator. He is on the volume assist control, rate 22, tidal volume 450, FiO2 40%, and PEEP of 5. Blood gases show pO2 75, pCO2 44, pH is 7.46. This blood gases consistent with a mild metabolic alkalosis. The patient's getting saline at 80 mL an hour, propofol at 40 mcg/kg/m, fentanyl 1 mcg/kg/h, and vital high protein at 10 mL an hour. Today, we will attempt a daily interruption of sedation and a spontaneous breathing trial. White count 5.7, hemoglobin 10.5, hematocrit 31.4, with a platelet count of 115,000. Sodium 135, potassium 3.1, chlorides 106, CO2 32, BUN and creatinine are both normal. Chest x-ray shows bibasilar infiltrates or atelectasis. Progress note dated 06/15/2022. 61-year-old male who was admitted back on June 06. The patient was admitted with a diagnosis of frequent falls, chronic alcohol intoxication, rib fractures, and a small pneumothorax. On June 12 he developed respiratory failure, with confusion, and required intubation. Yesterday, the patient was extubated from mechanical ventilation successfully. He is currently on 3 L of oxygen. Is get ting saline at 80 mL an hour. The patient is completely awake and alert. White count 5.9, hemoglobin 11.6, hematocrit 33.8, with a platelet count of 120,000. Sodium 134, potassium 3.9, chlorides 104, CO2 26, BUN 17, creatinine 0.63. Microbiologic studies are negative. Chest x-ray shows diffuse patchy bilateral infiltrates or atelectasis. The patient is seen today 06/16/2022 in follow-up on the regular medical floor. He is currently sitting up at the bedside. Awake and alert in no acute d istress. He is calm and cooperative. Maintaining O2 saturations in the 90s on 2 L/m per nasal cannula. Normal saline at 20 ML's per hour. Sputum culture was positive for E. coli. White count 7.3. Hemoglobin 11.3. Platelet count 135,000. Sodium 135. Potassium 3.9. Bicarb 25. BUN 10. Creatinine 0.68. Pro-calcitonin 0.38. He's been initiated on Levaquin. Continued on Symbicort, DuoNeb inhalations and Lovenox for DVT prophylaxis. Objective - Vital Signs Vital signs: Vital Signs Temp 98.2 F 06/16/22 08:00 Pulse 90 06/16/22 11:59 Resp 17 06/16/22 12:11 BP 129/53 06/16/22 08:00 Pulse Ox 95 06/16/22 08:00 FiO2 40 06/14/22 10:00 Intake & Output 06/15/22 06/16/22 06/16/22 18:59 06:59 18:59 Intake Total 2990 322 Output Total 1550 1400 250 Balance 1440 -1078 -250 Intake: IV 690 100 Invasive Line 4 20 Invasive Line 6 30 Magnesium Sulfate-D5w Pmx 200 1 gm In Dextrose/Water 1 100ml.bag @ 100 mls/hr IVPB Q1H [facility] Rx#: [id number] Piperacillin-Tazobactam 3 200 100 .375 gm In Sodium Chloride 0.9% 100 ml @ 25 mls/hr IVPB Q8HR [facility] Rx# :[id number] Sodium Chloride 0.9% 1, 240 000 ml @ 80 mls/hr IV . [id number] [facility] Rx#:[id number] Oral 2300 222 Output: Urine 1550 1400 250 Other: Voiding Method Indwelling Catheter Urinal Urinal # Voids 1 1 # Bowel Movements 1 ABP, PAP, CO, CI - Last Documented Arterial Blood Pressure 139/52 - Exam GENERAL EXAM: Alert, active, if the 11-year-old male, calm and cooperative, on 2 L nasal cannula, comfortable in no apparent distress. HEAD: Normocephalic. EYES: Normal reaction of pupils, equal size. NOSE: Clear with pink turbinates. THROAT: No erythema or exudates. NECK: No masses, no JVD. CHEST: No chest wall deformity. LUNGS: Equal air entry with few scattered rhonchi. CVS: S1 and S2 normal with no audible murmur, regular rhythm. ABDOMEN: No hepatosplenomegaly, normal bowel sounds, no guarding or rigidity. SPINE: No scoliosis or deformity SKIN: No rashes CENTRAL NERVOUS SYSTEM: No focal deficits, tone is normal in all 4 extremities. EXTREMITIES: There is no peripheral edema. No clubbing, no cyanosis. Peripheral pulses are intact. - Labs CBC & Chem 7: 06/16/22 07:36 06/16/22 07:36 Labs: Abnormal Lab Results - Last 24 Hours (Table) 06/15/22 06/16/22 06/16/22 Range/Units 05:57 07:36 07:36 RBC 3.41 L (4.30-5.90) m/uL Hgb 11.3 L (13.0-17.5) gm/dL Hct 33.7 L (39.0-53.0) % Plt Count 135 L (150-450) k/uL Lymphocytes # 0.8 L (1.0-4.8) k/uL Sodium 135 L (137-145) mmol/L Glucose 100 H (74-99) mg/dL Calcium 8.0 L (8.4-10.2) mg/dL Procalcitonin 0.38 H (0.02-0.09) ng/mL Microbiology - Last 24 Hours (Table) 06/13/22 21:42 Gram Stain - Final Sputum Sputum Culture - Final 06/14/22 11:11 Gram Stain - Final Sputum Sputum Culture - Final Escherichia coli Assessment and Plan Assessment: Acute hypoxemic respiratory failure, requiring intubation and mechanical ventilation, on 06/12/2022. Respiratory failure secondary to acute alcohol withdrawal, delirium tremens, pulmonary contusion, aspiration pneumonia, and small right-sided pneumothorax. S/P successful extubation on 06/14/2022. Sputum positive for E. coli, initiated on Levaquin Right-sided pneumothorax with pulmonary contusion. Acute exacerbation of COPD. History of chronic alcohol abuse with multiple falls. Tobacco dependence syndrome. Peripheral vascular occlusive disease. Hyponatremia, secondary to beer potomania. Plan: The patient was seen and evaluated Stable from the pulmonary/critical care standpoint Titrate off the FiO2 as tolerated Evaluated for possible home oxygen Levaquin for E. coli in the sputum Follow-up in the office one week post discharge I have personally seen and examined the patient, performed the documentation and the assessment and plan as written. Number of minutes spent on the visit: 10.
[2022-06-16] MEDS ORDERED: AMOXIC-POT CLAV 875-125MG 1 EACH TAB PO SCH (21:00)
[2022-06-17] MEDS: ACETAMINOPHEN TAB 500 MG TAB PO SCH ×3 (00:23→12:47)
[2022-06-17] MEDS: ARTIFICIAL TEARS-HYPROMELLOSE DROPS 15 ML BTL BOTH EYES SCH ×4 (00:29→12:47)
[2022-06-17] MEDS: IPRATROPIUM-ALBUTEROL 3 ML NEB INHALATION SCH ×5 (02:01→15:31)
[2022-06-17 02:27] VITALS: RESP 16
[2022-06-17 08:51] LABS: African American GFR (CKD) 127.6 (60.0-200.0); Anion Gap 9.4 mmol/L (10.00-18.00); BUN/Creat Ratio 14.33 Ratio (12.00-20.00); Blood Urea Nitrogen 8.6 mg/dL (9.0-27.0); Carbon Dioxide 23.6 mmol/L (20.0-27.5); Non-African American GFR(CKD) 110.1 (60.0-200.0); Potassium 3.8 mmol/L (3.5-5.5)
[2022-06-17] MEDS: LIDOCAINE 5% PATCH TOPICAL SCH (09:50)
[2022-06-17] MEDS: THIAMINE 100 MG TAB PO SCH (09:53)
[2022-06-17] MEDS: ENOXAPARIN 30 MG/0.3 ML SYRINGE SQ SCH (09:53)
[2022-06-17] MEDS: LEVOFLOXACIN 500 MG TAB PO SCH (09:54)
[2022-06-17] MEDS: SYMBICORT 160-4.5 MCG INHALER INHALATION SCH (09:59)
[2022-06-17 12:22] VITALS: BP 144/80; PULSE 67; TEMP 98.8
--- NOTE | 2022-06-17 12:55 | P.DS ---
Providers Date of admission: 06/06/22 22:47 Expected date of discharge: 06/17/22 Attending physician: Enzo Jackson MD Consults: 06/08/22 20:22 Consult Physician Stat Consulting Provider: Michelle Medrano Consult Reason/Comments: PTX Do you want consulting provider notified?: Yes 06/14/22 18:21 Consult Physician Routine Consulting Provider: Reyna Olivia Consult Reason/Comments: fib fracture Do you want consulting provider notified?: Already Contacted Primary care physician: Enzo Jackson MD Hospital Course: Discharge Diagnosis: Acute hypoxic respiratory failure now status post extubation Pulmonary contusion Small right-sided pneumothorax, traumatic Right-sided seventh and eighth rib fracture Aspiration pneumonia Acute COPD exacerbation History of alcohol use with multiple falls Mild hyponatremia Normocytic anemia Thrombocytopenia Ventilator-dependent respiratory failure Acute delirium tremens Acute alcohol withdrawal Nicotine dependence Hospital Course: 61-year-old male with history of daily alcohol use, and nicotine use presented after a fall. Initial CT abdomen and pelvis showed a small right pneumothorax and trace right pleural effusion, right lower lobe consolidative changes, pulmonary contusion, minimally displaced right seventh and eighth rib fractures, emphysema. Head CT and cervical spine CT showed no acute process. Patient was initially admitted to trauma service. He started to have hypoxic respiratory failure requiring high flow nasal cannula, transferred to the medical ICU. Patient improved with empiric antibiotics for possible aspiration pneumonia, as well as steroids and bronchodilators for acute exacerbation of COPD. He was transferred back to the floors, and developed agitation, likely related to alc ohol withdrawal. He was transferred back to the medical ICU, requiring Precedex drip and frequent Ativan. He was briefly intubated, then extubated to nasal cannula. He will be discharged with a short course of oral antibiotics. He did grow E. coli in the sputum sensitive to fluoroquinolone. He is now off of oxygen. Patient is being discharged with resources for outpatient alcohol rehab. Patient seen and examined at bedside. Vital signs reviewed and stable. General: nontoxic, no distress, appears at stated age Derm: warm, dry Head: atraumatic, normocephalic, symmetric Eyes: EOMI, no lid lag, anicteric sclera Mouth: no lip lesion, mucus membranes moist Cardiovascular: S1S2 reg, no murmur Lungs: CTA bilateral, no rhonchi, no rales , no accessory muscle use Abdominal: soft, nontender to palpation, no guarding, no appreciable organomegaly Ext: no gross muscle atrophy, no edema, no contractures Neuro: CN II-XI grossly intact, no focal neuro deficits Psych: Alert, oriented, appropriate affect A total of 38 minutes of time were spent preparing this complex discharge summary. Patient was discharged on 06/17/22 at 10:26. Patient Condition at Discharge: Stable Plan - Discharge Summary Discharge Rx Participant: No New Discharge Prescriptions: New oxyCODONE HCL [OxyIR] 5 mg PO Q6HR PRN #14 tab PRN Reason: Pain Acetaminophen Tab [Tylenol] 500 mg PO Q6HR #60 tab Albuterol Inhaler [Ventolin Hfa Inhaler] 1 - 2 puff INHALATION Q6H PRN #1 each PRN Reason: Shortness Of Breath Or Wheezing Levofloxacin [Levaquin] 500 mg PO Q24H #7 tab Lidocaine 5% Patch [Lidoderm 5% Patch] 1 patch TOPICAL DAILY #10 patch Budesonide-Formot 160-4.5 Mcg [Symbicort 160-4.5 Mcg Inhaler] 2 puff INHALATION RT-BID #1 each Thiamine [Vitamin B-1] 100 mg PO DAILY #90 tab Discharge Medication List Acetaminophen Tab [Tylenol] 500 mg PO Q6HR #60 tab 06/17/22 [Rx] Albuterol Inhaler [Ventolin Hfa Inhaler] 1 - 2 puff INHALATION Q6H PRN #1 each 06/17/22 [Rx] Budesonide-Formot 160-4.5 Mcg [Symbicort 160-4.5 Mcg Inhaler] 2 puff INHALATION RT-BID #1 each 06/17/22 [Rx] Levofloxacin [Levaquin] 500 mg PO Q24H #7 tab 06/17/22 [Rx] Lidocaine 5% Patch [Lidoderm 5% Patch] 1 patch TOPICAL DAILY #10 patch 06/17/22 [Rx] Thiamine [Vitamin B-1] 100 mg PO DAILY #90 tab 06/17/22 [Rx] oxyCODONE HCL [OxyIR] 5 mg PO Q6HR PRN #14 tab 06/17/22 [Rx] Follow up Appointment(s)/Referral(s): Stephen Estrada MD [STAFF PHYSICIAN] - 06/23/22 9:30 am Mati Schultz MD [Medical Doctor] - 1-2 Days (Post hospital follow up apt, please call office to make follow up appointment.) Reyna Olivia DO [Doctor of Osteopathic Medicine] - 07/12/22 10:00 am (will need CXR prior to clinic visit) Ambulatory/Diagnostic Orders: XR chest 2V [RAD.AMB] Location: None Selected Patient Instructions/Handouts: Traumatic Pneumothorax (ED), Rib Fracture (DC), Alcohol Intoxication (ED), Abuse of Alcohol (ED), At-Risk Alcohol Use (ED), Acute Delirium (ED), Contusion in Adults (ED), Alcohol Withdrawal (ED), Alcohol Dependence (ED), Hematoma (ED), Alcohol Use Disorder (ED) Activity/Diet/Wound Care/Special Instructions: [facility] out pt treatment - [phone] - call them to set up an appt. Please see pulmonology and PCP as well. Call for appointment. Discharge/Stand Alone Forms: AA Meetings [facility], Community Resources, Work/School Release, In Substance Abuse Facilities Discharge Disposition: HOME SELF-CARE
--- NOTE | 2022-06-17 13:44 | P.PN ---
Subjective Progress Note Date: 06/17/22 Progress note dated 06/14/2022. This is a 61-year-old male who was admitted back on June 06. At that time, he was having frequent falling, from alcohol intoxication, and sustained rib fractures and a small pneumothorax. The patient was intubated on June 12 for respiratory failure and confusion. She had been in and out of the intensive care unit, a couple times. Currently he remains on the mechanical ventilator. He is on the volume assist control, rate 22, tidal volume 450, FiO2 40%, and PEEP of 5. Blood gases show pO2 75, pCO2 44, pH is 7.46. This blood gases consistent with a mild metabolic alkalosis. The patient's getting saline at 80 mL an hour, propofol at 40 mcg/kg/m, fentanyl 1 mcg/kg/h, and vital high protein at 10 mL an hour. Today, we will attempt a daily interruption of sedation and a spontaneous breathing trial. White count 5.7, hemoglobin 10.5, hematocrit 31.4, with a platelet count of 115,000. Sodium 135, potassium 3.1, chlorides 106, CO2 32, BUN and creatinine are both normal. Chest x-ray shows bibasilar infiltrates or atelectasis. Progress note dated 06/15/2022. 61-year-old male who was admitted back on June 06. The patient was admitted with a diagnosis of frequent falls, chronic alcohol intoxication, rib fractures, and a small pneumothorax. On June 12 he developed respiratory failure, with confusion, and required intubation. Yesterday, the patient was extubated from mechanical ventilation successfully. He is currently on 3 L of oxygen. Is get ting saline at 80 mL an hour. The patient is completely awake and alert. White count 5.9, hemoglobin 11.6, hematocrit 33.8, with a platelet count of 120,000. Sodium 134, potassium 3.9, chlorides 104, CO2 26, BUN 17, creatinine 0.63. Microbiologic studies are negative. Chest x-ray shows diffuse patchy bilateral infiltrates or atelectasis. The patient is seen today 06/16/2022 in follow-up on the regular medical floor. He is currently sitting up at the bedside. Awake and alert in no acute d istress. He is calm and cooperative. Maintaining O2 saturations in the 90s on 2 L/m per nasal cannula. Normal saline at 20 ML's per hour. Sputum culture was positive for E. coli. White count 7.3. Hemoglobin 11.3. Platelet count 135,000. Sodium 135. Potassium 3.9. Bicarb 25. BUN 10. Creatinine 0.68. Pro-calcitonin 0.38. He's been initiated on Levaquin. Continued on Symbicort, DuoNeb inhalations and Lovenox for DVT prophylaxis. The patient is seen today 06/17/2022 in follow-up on the regular medical floor. He is currently sitting up in bed. Awake and alert in no acute distress. Maintaining O2 saturations in the 90s on 2 L/m per nasal cannula. He does drop to 87% on room air while walking. Sputum culture had been positive for E. coli. He is currently on Levaquin. Sodium 137 potassium 3.8. Bicarb 24. BUN 9. Creatinine 0.6. Continued on Symbicort, DuoNeb inhalations and Lovenox for DVT prophylaxis. Objective - Vital Signs Vital signs: Vital Signs Temp 98.8 F 06/17/22 12:03 Pulse 67 06/17/22 12:03 Resp 16 06/17/22 12:03 BP 144/80 06/17/22 12:03 Pulse Ox 93 L 06/17/22 12:03 FiO2 40 06/14/22 10:00 Intake & Output 06/16/22 06/17/22 06/17/22 18:59 06:59 18:59 Intake Total 240 Output Total 500 900 Balance -500 -900 240 Intake: Oral 240 Output: Urine 500 900 Other: Voiding Method Urinal Urinal Urinal # Voids 2 ABP, PAP, CO, CI - Last Documented Arterial Blood Pressure 139/52 - Exam GENERAL EXAM: Alert, 61-year-old male, on 2 L nasal cannula, comfortable in no apparent distress. HEAD: Normocephalic. EYES: Normal reaction of pupils, equal size. NOSE: Clear with pink turbinates. THROAT: No erythema or exudates. NECK: No masses, no JVD. CHEST: No chest wall deformity. LUNGS: Equal air entry with few scattered rhonchi. CVS: S1 and S2 normal with no audible murmur, regular rhythm. ABDOMEN: No hepatosplenomegaly, normal bowel sounds, no guarding or rigidity. SPINE: No scoliosis or deformity SKIN: No rashes CENTRAL NERVOUS SYSTEM: No focal deficits, tone is normal in all 4 extremities. EXTREMITIES: There is no peripheral edema. No clubbing, no cyanosis. Peripheral pulses are intact. - Labs CBC & Chem 7: 06/16/22 07:36 06/17/22 05:36 Labs: Abnormal Lab Results - Last 24 Hours (Table) 06/17/22 Range/Units 05:36 Anion Gap 9.40 L (10.00-18.00) mmol/L BUN 8.6 L (9.0-27.0) mg/dL Calcium 8.0 L (8.7-10.3) mg/dL Microbiology - Last 24 Hours (Table) 06/13/22 21:42 Gram Stain - Final Sputum Sputum Culture - Final 06/14/22 11:11 Gram Stain - Final Sputum Sputum Culture - Final Escherichia coli Assessment and Plan Assessment: Acute hypoxemic respiratory failure, requiring intubation and mechanical ventilation, on 06/12/2022. Respiratory failure secondary to acute alcohol withdrawal, delirium tremens, pulmonary contusion, aspiration pneumonia, and small right-sided pneumothorax. S/P successful extubation on 06/14/2022. Stable and on 2 L nasal cannula. Sputum positive for E. coli, initiated on Levaquin Right-sided pneumothorax with pulmonary contusion. Acute exacerbation of COPD. History of chronic alcohol abuse with multiple falls. Tobacco dependence syndrome. Peripheral vascular occlusive disease. Hyponatremia, secondary to beer potomania. Plan: The patient was seen and evaluated Stable from the pulmonary/critical care standpoint Does qualify for home oxygen Complete a course of Levaquin Follow-up in the office one week I have personally seen and examined the patient, performed the documentation and the assessment and plan as written. Number of minutes spent on the visit: 10.
== END 2022-06-17 16:03 | disposition home or self-care (01) | DRG 135 ==
LOC: EC 18:54 → 3SCARD 22:47 → 2SICU 06-09 04:28 → 3SCARD 06-10 16:28 → 2SICU 06-12 10:38 → 5NMEDONC 06-15 21:30
PROVIDERS: ADMIT Family Medicine; ATTEND Family Medicine
PROC: 0D9670Z Drainage of Stomach with Drainage Device, Via Natural or Artificial Opening (ICD-10-PCS; principal; 2022-06-12)
PROC: 5A1945Z Respiratory Ventilation, 24-96 Consecutive Hours (ICD-10-PCS; principal; 2022-06-12)
PROC: 0BH17EZ Insertion of Endotracheal Airway into Trachea, Via Natural or Artificial Opening (ICD-10-PCS; 2022-06-12)
PROC: 4A133J1 Monitoring of Arterial Pulse, Peripheral, Percutaneous Approach (ICD-10-PCS; 2022-06-13)
PROC: 03HY32Z Insertion of Monitoring Device into Upper Artery, Percutaneous Approach (ICD-10-PCS; 2022-06-13)
PROC: 02HV33Z Insertion of Infusion Device into Superior Vena Cava, Percutaneous Approach (ICD-10-PCS; 2022-06-13)
PROC: 4A133B1 Monitoring of Arterial Pressure, Peripheral, Percutaneous Approach (ICD-10-PCS; 2022-06-13)
DX: S27.0XXA Traumatic pneumothorax, initial encounter (principal); J96.01 Acute respiratory failure with hypoxia; J69.0 Pneumonitis due to inhalation of food and vomit; F10.231 Alcohol dependence with withdrawal delirium; J15.5 Pneumonia due to Escherichia coli; J44.1 Chronic obstructive pulmonary disease with (acute) exacerbation; E87.3 Alkalosis; E87.1 Hypo-osmolality and hyponatremia; S22.41XA Multiple fractures of ribs, right side, initial encounter for closed fracture; D69.59 Other secondary thrombocytopenia; J90 Pleural effusion, not elsewhere classified; S27.321A Contusion of lung, unilateral, initial encounter; S27.2XXA Traumatic hemopneumothorax, initial encounter; T79.7XXA Traumatic subcutaneous emphysema, initial encounter; I10 Essential (primary) hypertension; F10.229 Alcohol dependence with intoxication, unspecified; S30.1XXA Contusion of abdominal wall, initial encounter; D64.9 Anemia, unspecified; J98.11 Atelectasis; R29.6 Repeated falls; I25.10 Atherosclerotic heart disease of native coronary artery without angina pectoris; I99.8 Other disorder of circulatory system; M54.2 Cervicalgia; F17.210 Nicotine dependence, cigarettes, uncomplicated; Z71.6 Tobacco abuse counseling; Z79.02 Long term (current) use of antithrombotics/antiplatelets; Z79.899 Other long term (current) drug therapy; Z78.1 Physical restraint status; Z95.820 Peripheral vascular angioplasty status with implants and grafts; W10.8XXA Fall (on) (from) other stairs and steps, initial encounter; Y92.008 Other place in unspecified non-institutional (private) residence as the place of occurrence of the external cause
CPT/HCPCS: 36415; 36600; 70450; 71045; 71046; 71260; 71275; 72125; 74177; 80048; 80053; 81003; 82805; 83735; 83880; 84100; 84132; 84145; 85025; 85027; 85610; 85730; 87070; 87077; 87186; 87205; 93306; 94002; 94003; 94640; 94760; 96361; 96374; 96375; 99285

== ENCOUNTER → 2022-07-07 | Outpatient (CLI) | payer OTHER ==
[2022-07-07 15:26] LABS: Basophils % (A) 1.9 %; Eosinophils # (A) 0.15 X 10*3/uL (0.04-0.35); Eosinophils % (A) 2.8 %; HCT 39.4 % (39.6-50.0); HGB 12.5 g/dL (13.0-17.0); Immature Grans, Automated 0.7 %; Lymphocytes # (A) 1.71 X 10*3/uL (0.90-5.00); MCH 32.1 pg (27.0-32.0); MCHC 31.7 g/dL (32.0-37.0); Monocytes # (A) 0.63 X 10*3/uL (0.20-1.00); Monocytes % (A) 11.8 %; NRBC Per 100 WBC 0 /100 WBCS (0.0-0.0); Neutrophils # (A) 2.72 X 10*3/uL (1.80-7.70); Neutrophils % (A) 50.8 %; Platelet Count 137 X 10*3/uL (140-440); RDW 13.9 % (11.5-14.5); WBC 5.35 X 10*3/uL (4.50-10.00)
[2022-07-07 16:08] LABS: ALT 24 U/L (10-49); AST 35 U/L (14-35); African American GFR (CKD) 113.3 (60.0-200.0); Albumin 4.1 g/dL (3.8-4.9); Albumin/Globulin Ratio 1.37 (1.60-3.17); Alkaline Phosphatase 154 U/L (41-126); BUN/Creat Ratio 14.25 Ratio (12.00-20.00); Blood Urea Nitrogen 11.4 mg/dL (9.0-27.0); Calcium 9.7 mg/dL (8.7-10.3); Carbon Dioxide 21.3 mmol/L (20.0-27.5); Chloride 107 mmol/L (96-109); Chol/HDL Ratio 3.61 Ratio; Glucose 88 mg/dL (70-110); LDL Cholesterol,Calculated 130.6 mg/dL (0.0-131.0); Non-African American GFR(CKD) 97.8 (60.0-200.0); Potassium 4.2 mmol/L (3.5-5.5); Sodium 141 mmol/L (135-145); Total Protein 7.1 g/dL (6.2-8.2); VLDL Calculation 16.08 mg/dL (5.00-40.00)
== END | disposition home or self-care (01) ==
LOC: LABWHC1 07:08
PROVIDERS: ATTEND Internal Medicine
DX: J18.9 Pneumonia, unspecified organism (principal); E78.5 Hyperlipidemia, unspecified; R73.9 Hyperglycemia, unspecified; N40.0 Benign prostatic hyperplasia without lower urinary tract symptoms; E53.9 Vitamin B deficiency, unspecified; R94.6 Abnormal results of thyroid function studies
CPT/HCPCS: 36415; 80053; 80061; 82306; 82607; 83036; 84153; 84439; 84443; 85025

== ENCOUNTER 2023-01-15 16:02 | Emergency (ER) | payer OTHER ==
[2023-01-15 16:37] VITALS: BP 168/97; PULSE 101; RESP 18; TEMP 98
--- NOTE | 2023-01-15 16:37 | ED ---
Psych HPI - General Chief Complaint: Psychiatric Symptoms Stated Complaint: Suicidal Time Seen by Provider: 01/15/23 16:23 Source: patient, RN notes reviewed Mode of arrival: ambulatory - History of Present Illness Initial Comments: 8o-year-old male with a history of depression and history of alcohol abuse who was brought in by his sister. He states he feels suicidal is been going on for for 5 days. No particular incident and setting off he has no particular plan other than he states he would jump in the river. He does admit to drinking alcohol up to 30 minutes before he arrived here. No other complaints no trauma no medication ingestion MD Complaint: suicidal ideation, feels depressed - Related Data Previous Rx's Medication Instructions Recorded Acetaminophen Tab [Tylenol] 500 mg PO Q6HR #60 tab 06/17/22 Albuterol Inhaler [Ventolin Hfa 1 - 2 puff INHALATION Q6H PRN #1 06/17/22 Inhaler] each Budesonide-Formot 160-4.5 Mcg 2 puff INHALATION RT-BID #1 each 06/17/22 [Symbicort 160-4.5 Mcg Inhaler] Levofloxacin [Levaquin] 500 mg PO Q24H #7 tab 06/17/22 Lidocaine 5% Patch [Lidoderm 5% 1 patch TOPICAL DAILY #10 patch 06/17/22 Patch] Thiamine [Vitamin B-1] 100 mg PO DAILY #90 tab 06/17/22 oxyCODONE HCL [OxyIR] 5 mg PO Q6HR PRN #14 tab 06/17/22 Allergies Allergy/AdvReac Type Severity Reaction Status Date / Time No Known Allergies Allergy Verified 01/15/23 16:20 Review of Systems ROS Statement: Those systems with pertinent positive or pertinent negative responses have been documented in the HPI. ROS Other: All systems not noted in ROS Statement are negative. Past Medical History Past Medical History: Vascular Disorder History of Any Multi-Drug Resistant Organisms: None Reported Past Surgical History: Heart Catheterization Additional Past Surgical History / Comment(s): Right common iliac artery stenting Past Anesthesia/Blood Transfusion Reactions: No Reported Reaction Past Psychological History: No Psychological Hx Reported, Depression Smoking Status: Current every day smoker Past Alcohol Use History: Daily, Heavy Past Drug Use History: None Reported - Past Family History Mother Family Medical History: Coronary Artery Disease (CAD), Diabetes Mellitus General Exam - General Exam Comments Initial Comments: This is a well-developed well-nourished awake alert oriented 6 male he does have the smell of alcohol conjoiners on his breath Limitations: no limitations General appearance: alert, in no apparent distress Head exam: Present: atraumatic, normocephalic, normal inspection Eye exam: Present: normal appearance, PERRL, EOMI. Absent: scleral icterus, conjunctival injection, periorbital swelling ENT exam: Present: mucous membranes dry Neck exam: Present: normal inspection. Absent: tenderness, meningismus, lymphadenopathy Respiratory exam: Present: normal lung sounds bilaterally. Absent: respiratory distress, wheezes, rales, rhonchi, stridor Cardiovascular Exam: Present: normal rhythm, tachycardia, normal heart sounds. Absent: systolic murmur, diastolic murmur, rubs, gallop, clicks GI/Abdominal exam: Present: soft, normal bowel sounds. Absent: distended, tenderness, guarding, rebound, rigid Rectal exam: Present: deferred Extremities exam: Present: normal inspection, full ROM, normal capillary refill. Absent: tenderness, pedal edema, joint swelling, calf tenderness Back exam: Present: normal inspection Neurological exam: Present: alert, oriented X3, CN II-XII intact Psychiatric exam: Present: depressed, suicidal ideation Skin exam: Present: warm, dry, intact, normal color. Absent: rash Course Vital Signs 01/15/23 16:16 Temperature 98 F Pulse Rate 101 H Respiratory 18 Rate Blood Pressure 168/97 O2 Sat by Pulse 96 Oximetry Medical Decision Making - Medical Decision Making The patient was evaluated by the EPS service and will be discharged he currently is not suicidal he states the pain is in place. Patient will be going home with [facility] pt. sent in by a medical professional or institution (, PA, [employer]ER, urgent care, hospital, or fpc...) When possible be specific @ -No Did you speak to anyone other than the patient for history (EMS, parent, family, police, friend...)? What history was obtained from this source @ -Patient and family member Did you review nursing and triage notes (agree or disagree)? Why? @ -I reviewed and agree with nursing and triage notes Were old charts reviewed (outside hosp., previous admission, EMS record, old EKG, old radiological studies, urgent care reports/EKG's, fpc records)? Report findings @ -No old charts were reviewed Differential Diagnosis (chest pain, altered mental status, abdominal pain women, abdominal pain men, vaginal bleeding, weakness, fever, dyspnea, syncope, headache, dizziness, GI bleed, back pain, seizure, CVA, palpatations, mental health, musculoskeletal)? @ -Alcohol intoxication, depression EKG interpreted by me (3pts min.). @ -Not done X-rays interpreted by me (1pt min.). @ -None done CT interpreted by me (1pt min.). @ -None done U/S interpreted by me (1pt. min.). @ -None done What testing was considered but not performed or refused? (CT, X-rays, U/S, labs)? Why? @ -None What meds were considered but not given or refused? Why? @ -None Did you discuss the management of the patient with other professionals (professionals i.e. , PA, [employer]ER, lab, RT, psych nurse, case management social worker, doughnut glazier, teacher, security vehicle patrol officer, protective services case worker)? Give summary @ -No Was smoking cessation discussed for >3mins.? @ -No Was critical care preformed (if so, how long)? @ -No Were there social determinants of health that impacted care today? How? (Homelessness, low income, unemployed, alcoholism, drug addiction, transportation, low edu. Level, literacy, decrease access to med. care, [place] [facility], rehab)? @ -No Was there de-escalation of care discussed even if they declined (Discuss DNR or withdrawal of care, Hospice)? DNR status @ -No What co-morbidities impacted this encounter? (DM, HTN, Smoking, COPD, CAD, Cancer, CVA, ARF, Chemo, Hep., AIDS, mental health diagnosis, sleep apnea, morbid obesity)? @ -Alcohol abuse Was patient admitted / discharged? Hospital course, mention meds given and route, prescriptions, significant lab abnormalities, going to OR and other pertinent info. @ -hospital course patient was ultimately discharged home with a safety plan no firearms in the house. Undiagnosed new problem with uncertain prognosis? @ -No Drug Therapy requiring intensive monitoring for toxicity (Heparin, Nitro, Insulin, Cardizem)? @ -No Were any procedures done? @ -No Diagnosis/symptom? @ -Alcohol intoxication, adjustment disorder Acute, or Chronic, or Acute on Chronic? @ -Acute Uncomplicated (without systemic symptoms) or Complicated (systemic symptoms)? @ -default Side effects of treatment? @ -No Exacerbation, Progression, or Severe Exacerbation? @ -No Poses a threat to life or bodily function? How? (Chest pain, [place], [place], pneumonia, PE, COPD, DKA, ARF, appy, cholecystitis, CVA, Diverticulitis, Homicidal, Suicidal, threat to staff... and all critical care pts) @ -No - Lab Data Lab Results 01/15/23 Range/Units 16:54 Urine Opiates Screen Not Detected (NotDetected) Ur Oxycodone Screen Not Detected (NotDetected) Urine Methadone Screen Not Detected (NotDetected) Ur Propoxyphene Screen Not Detected (NotDetected) Ur Barbiturates Screen Not Detected (NotDetected) U Tricyclic Antidepress Not Detected (NotDetected) Ur Phencyclidine Scrn Not Detected (NotDetected) Ur Amphetamines Screen Not Detected (NotDetected) U Methamphetamines Scrn Not Detected (NotDetected) U Benzodiazepines Scrn Not Detected (NotDetected) Urine Cocaine Screen Not Detected (NotDetected) U Marijuana (THC) Screen Not Detected (NotDetected) Disposition Clinical Impression: Adjustment reaction of adult life, Alcohol intoxication Disposition: HOME SELF-CARE Condition: Good Instructions (If sedation given, give patient instructions): Mood Disorders (ED), Alcohol Intoxication (DC) Is patient prescribed a controlled substance at d/c from ED?: No Referrals: Mati Schultz MD [Primary Care Provider] - 1-2 days Decision Date: 01/15/23 Decision Time: 21:58
[2023-01-15 17:42] LABS: Amphetamine Screen,Urine Not Detected (NotDetected); Barbiturate Screen,Urine Not Detected (NotDetected); Benzodiazepines Screen,Urine Not Detected (NotDetected); Cocaine Screen,Urine Not Detected (NotDetected); Methadone Screen, Urine Not Detected (NotDetected); Opiate Screen,Urine Not Detected (NotDetected); Oxycodone Screen, Urine Not Detected (NotDetected); Phencyclidine Screen,Urine Not Detected (NotDetected); Tricyclic Antidepressant,Urine Not Detected (NotDetected); Urn Cannabinoid Scrn Not Detected (NotDetected)
== END 2023-01-15 23:42 | disposition home or self-care (01) ==
LOC: EC 16:02
DX: F43.20 Adjustment disorder, unspecified (principal); F10.129 Alcohol abuse with intoxication, unspecified; F17.200 Nicotine dependence, unspecified, uncomplicated
CPT/HCPCS: 80306; 82075; 99284

== ENCOUNTER → 2024-05-30 | Outpatient (CLI) | payer OTHER ==
--- NOTE | 2024-05-30 10:37 | XR ---
EXAMINATION TYPE: XR shoulder complete LT DATE OF EXAM: 05/30/2024 10:30 AM INDICATION: Patient age:Male; 63 years old; Reason for study: M25.512 PAIN IN LEFT SHOULDER; pain COMPARISON: Chest radiograph 07/15/2022 TECHNIQUE: The left shoulder was examined in AP, internally rotated and scapular Y projections. . FINDINGS: No acute fracture. Elevation of the distal clavicle in relation to the acromion. No dislocation of th e shoulder joint. No soft tissue swelling. The remaining portions of the visualized chest are unremar kable. IMPRESSION: 1. No acute fracture. 2. Type III AC joint injury. [facility], , 05/30/2024 10:34 AM
== END | disposition home or self-care (01) ==
LOC: LABWHC1 10:20
PROVIDERS: ATTEND Internal Medicine Geriatric Medicine
DX: M25.512 Pain in left shoulder (principal)